=== PATIENT | male | born 1945 | race Caucasian/White ===

== ENCOUNTER 2016-05-29 08:32 | Inpatient (IN) ==
[2016-05-29] MEDS ORDERED: Ipratropium/Albuterol Neb 3 ML ONE (08:33)
[2016-05-29] MEDS ORDERED: methylPREDNISolone 125 MG/2 ML VIAL IVP ONE (08:34)
[2016-05-29] MEDS ORDERED: Ipratropium/Albuterol Neb 3 ML IH ONE (08:34)
--- NOTE | 2016-05-29 08:37 | Emergency Department Note ---
Disposition Clinical Impression: COPD exacerbation Disposition: Admitted As Inpatient Condition: Fair General Adult HPI - General Chief complaint: ED Shortness of Breath/Dyspnea Stated complaint: [place] Time Seen by Provider: 05/29/16 08:34 Nursing Notes Reviewed: Yes Vital Signs Reviewed: Yes - Related Data Home Medications Medication Instructions Recorded Confirmed Aspirin [Lo-Dose Aspirin EC] 162 mg PO DAILY 05/29/16 05/29/16 Beclomethasone Diprop 40mcg [Qvar 1 puff IH BID 05/29/16 05/29/16 40 mcg] Folic Acid 0.8 mg PO DAILY 05/29/16 05/29/16 Ibuprofen [Motrin] 800 mg PO TID 05/29/16 05/29/16 Ipratropium/Albuterol Neb [Duoneb] 3 ml IH Q6HR 05/29/16 05/29/16 Metoprolol [Lopressor] 25 mg PO DAILY 05/29/16 05/29/16 Multivitamin [Multi-Day Vitamins] 1 tab PO DAILY 05/29/16 05/29/16 Simvastatin [Zocor] 40 mg PO DAILY 05/29/16 05/29/16 Allergies Allergy/AdvReac Type Severity Reaction Status Date / Time No Known Allergies Allergy Verified 05/29/16 08:40 Course Vital Signs Temperature 98.5 F 05/29/16 08:33 Pulse Rate 118 05/29/16 08:33 Respiratory Rate 28 05/29/16 08:33 Blood Pressure 189/81 05/29/16 08:33 O2 Sat by Pulse Oximetry 99 05/29/16 08:33 Temperature 98.5 F 05/29/16 08:33 Pulse Rate 85 05/29/16 10:02 Respiratory Rate 24 05/29/16 10:33 Blood Pressure 142/50 05/29/16 10:33 O2 Sat by Pulse Oximetry 92 L 05/29/16 10:02 Oxygen Delivery Oxygen Delivery Nasal Cannula Medical Decision Making - MDM Narrative Medical decision making narrative: I examined this patient and my medical decision-making was reviewed with the MARINE SUPERINTENDENT/PA/Advanced Practice Nurse/Resident Physician. I agree with the documented findings, disposition and treatment plan as described except to the extent set forth below. I evaluated this patient on arrival with Dr. Laws, I agree with his evaluation and management plan, I supervised the care of the patient throughout the stay. Patient has a long history of COPD takes is coming by his she says that he has a minimal hospital about 4 years. Over the past week he has been coughing more dyspneic. No treatments this morning. He is on oxygen home she says he usually can make it from his chair to the kitchen and that is about it without getting short of breath. He has had no chest pain. He has been able to lay flat at night. He has been coughing up dry skin cough. No sputum. She states he has had no fevers he is not currently on steroids. He has decreased movement in his bases. Regular COPD workup on him he may need admission. Chest X-Ray 05/29/16 08:34 IMPRESSION: Prominence of the interstitial markings within lung bases. Correlation for interstitial edema is recommended. D/ / Erika Britton Cha, MD / Erika Britton Cha, MD Interpreting Provider: Erika Britton Cha, MD 0930 hrs.: Patient's labs are back, has a leukocytosis, but no pneumonia on chest x-ray. Start him on antibiotics since he has COPD. And bring him in the hospital as he still is wheezing and decreased aeration in the bases. This improved from the start. Spoke with the hospitalist they have agreed to admit the patient returned here evaluating him now. Patient family in agreement with the plan. Impressions acute exacerbation of COPD, leukocytosis. - Lab Data Result diagrams: 05/29/16 08:47 05/29/16 08:47 Lab Results 05/29/16 05/29/16 05/29/16 Range/Units 08:47 08:47 08:47 WBC 14.9 H (4.3-11.1) K/mcL RBC 5.24 (4.19-5.50) M/mcL Hgb 15.8 (12.9-16.9) g/dL Hct 51.6 H (37.5-50.1) % MCV 98.5 (83.0-100.0) fL MCH 30.2 (28.0-33.3) pg MCHC 30.6 L (31.6-35.5) g/dL RDW 12.1 (11.5-14.5) % Plt Count 205 (140-400) K/mcL MPV 8.8 L (9.4-12.4) fL Immature Gran % 0.8 (0-4) % Seg Neutrophils % 84.5 % Lymphocytes % 8.3 % Monocytes % 4.6 % Eosinophils % 1.3 % Basophils % 0.5 % Neutrophils # 12.6 H (1.6-8.9) K/mcL Lymphocytes # 1.2 (0.6-4.6) K/mcL Monocytes # 0.7 (0.0-1.3) K/mcL Eosinophils # 0.2 (0.0-0.6) K/mcL Basophils # 0.1 (0.0-0.2) K/mcL Sodium 142 (136-145) mEq/L Potassium 4.7 H (3.5-4.5) mEq/L Chloride 101 (98-109) mEq/L Carbon Dioxide 35 H (19-29) mEq/L BUN 14 (8-26) mg/dL Creatinine 0.83 (0.72-1.25) mg/dL Est GFR ( Amer) > 60 (> 60) Est GFR (Non-Af Amer) > 60 (> 60) BUN/Creatinine Ratio 17 (6-26) Glucose 120 H (70-99) mg/dL Calculated Osmolality 296 (280-300) Calcium 9.4 (8.6-10.8) mg/dL Troponin I 0.01 (0-0.03) ng/mL
--- NOTE | 2016-05-29 08:50 | Emergency Department Note ---
Disposition Clinical Impression: COPD exacerbation Disposition: Admitted As Inpatient Condition: Fair Referrals: Manjit To Jr, MD [Primary Care Provider] - Forms: ED Satisfaction Letter SOB HPI - General Chief Complaint: ED Shortness of Breath/Dyspnea Stated Complaint: [place] Time Seen by Provider: 05/29/16 08:34 Source: patient Limitations: no limitations Nursing Notes Reviewed: Yes Vital Signs Reviewed: Yes - History of Present Illness Patient here for evaluation of shortness of breath. History of COPD. Home O2 of 3 L. Patient has had symptoms for approximately 1 week. Progressively worse in nature. Patient taking out the oral nebulizers every 4 hours. Patient has difficulty in getting around the house and making it to the kitchen and bathroom at this point. Patient denies fever and productive cough. - Related Data Allergies Allergy/AdvReac Type Severity Reaction Status Date / Time No Known Allergies Allergy Verified 05/29/16 08:40 Constitutional: Reports: weakness. Denies: fever, chills Eyes: Denies: eye pain ENT ED: Denies: ear pain Cardiovascular: Reports: dyspnea on exertion. Denies: chest pain Respiratory: Reports: cough, dyspnea, wheezes Gastrointestinal: Denies: abdominal pain, nausea Genitourinary: Denies: urgency, dysuria Musculoskeletal: Denies: back pain Integumentary: Denies: rash Neurological: Denies: headache Psychiatric: Denies: anxiety, depression Endocrine: Reports: fatigue Hematological/Lymphatic: Denies: easy bleeding Physical Exam - General Limitations: no limitations - Head Head exam: atraumatic, normocephalic - Eye Eye exam: Present: normal appearance - ENT ENT exam: normal exam, normal oropharynx - Neck Neck exam: Present: normal inspection - Chest Chest inspection: Present: normal inspection, symmetric chest wall rise. Absent : tenderness - Respiratory Respiratory exam: Present: wheezes (Minimal air movement present bilaterally) - Cardiovascular Cardiovascular exam: Present: regular rate, normal rhythm - Abdominal Exam Abdominal exam: Present: soft, Non-Tender - Extremities Exam Extremities exam: Present: normal inspection - Back Exam Back exam: Present: normal inspection - Neurological Exam Neurological exam: Present: alert, oriented X3 Course - Reevaluation(s) Reevaluation #1: Patient's breathing improved with 3 DuoNeb's. Patient continues to have distant lung sounds with associated wheezing. Sputum production started yesterday with cough. Possible early pneumonia. Interstitial lung findings on x-ray. Will admit for further observation. - Consultations Consultation #1: Discussed with Dr. Fu. Pt accepted. Vital Signs Temperature 98.5 F 05/29/16 08:33 Pulse Rate 118 05/29/16 08:33 Respiratory Rate 28 05/29/16 08:33 Blood Pressure 189/81 05/29/16 08:33 O2 Sat by Pulse Oximetry 99 05/29/16 08:33 Temperature 98.5 F 05/29/16 08:33 Pulse Rate 98 05/29/16 09:05 Respiratory Rate 25 05/29/16 09:05 Blood Pressure 128/66 05/29/16 09:05 O2 Sat by Pulse Oximetry 98 05/29/16 09:05 Oxygen Delivery Oxygen Delivery Aerosol Mask Shortness of Breath/Dyspnea - Medical Records Medical records reviewed: Yes I reviewed the patient's medical records. - Lab Data Lab results reviewed: Yes I reviewed the patient's lab results. Result diagrams: 05/29/16 08:47 05/29/16 08:47 Lab Results 05/29/16 05/29/16 05/29/16 Range/Units 08:47 08:47 08:47 WBC 14.9 H (4.3-11.1) K/mcL RBC 5.24 (4.19-5.50) M/mcL Hgb 15.8 (12.9-16.9) g/dL Hct 51.6 H (37.5-50.1) % MCV 98.5 (83.0-100.0) fL MCH 30.2 (28.0-33.3) pg MCHC 30.6 L (31.6-35.5) g/dL RDW 12.1 (11.5-14.5) % Plt Count 205 (140-400) K/mcL MPV 8.8 L (9.4-12.4) fL Immature Gran % 0.8 (0-4) % Seg Neutrophils % 84.5 % Lymphocytes % 8.3 % Monocytes % 4.6 % Eosinophils % 1.3 % Basophils % 0.5 % Neutrophils # 12.6 H (1.6-8.9) K/mcL Lymphocytes # 1.2 (0.6-4.6) K/mcL Monocytes # 0.7 (0.0-1.3) K/mcL Eosinophils # 0.2 (0.0-0.6) K/mcL Basophils # 0.1 (0.0-0.2) K/mcL Sodium 142 (136-145) mEq/L Potassium 4.7 H (3.5-4.5) mEq/L Chloride 101 (98-109) mEq/L Carbon Dioxide 35 H (19-29) mEq/L BUN 14 (8-26) mg/dL Creatinine 0.83 (0.72-1.25) mg/dL Est GFR ( Amer) > 60 (> 60) Est GFR (Non-Af Amer) > 60 (> 60) BUN/Creatinine Ratio 17 (6-26) Glucose 120 H (70-99) mg/dL Calculated Osmolality 296 (280-300) Calcium 9.4 (8.6-10.8) mg/dL Troponin I 0.01 (0-0.03) ng/mL - Radiology Data Radiology results reviewed: Yes I reviewed the patient's radiology results. - EKG Data EKG attestation: Yes I reviewed and interpreted this EKG. EKG results narrative: EKG shows sinus tachycardia with an incomplete right bundle branch block. Ventricular rate of 117. PA interval 178. QRS 118. QTC 387. Patient has no significant ST elevations or depressions. Patient has significant Q waves in inferior leads consistent with previous EKG of 06/06/11. EKG with no significant changes from previous EKG.
[2016-05-29 08:59] LABS: Basophils # 0.1 K/mcL (0.0-0.2); Basophils % 0.5 %; Eosinophils # 0.2 K/mcL (0.0-0.6); Eosinophils % 1.3 %; Hematocrit 51.6 % (37.5-50.1); Hemoglobin 15.8 g/dL (12.9-16.9); Immature Granulocytes % 0.8 % (0-4); Lymphocytes # 1.2 K/mcL (0.6-4.6); Lymphocytes % 8.3 %; Mean Corpuscular HGB Conc 30.6 g/dL (31.6-35.5); Mean Corpuscular Hemoglobin 30.2 pg (28.0-33.3); Mean Corpuscular Volume 98.5 fL (83.0-100.0); Mean Platelet Volume 8.8 fL (9.4-12.4); Monocytes # 0.7 K/mcL (0.0-1.3); Monocytes % 4.6 %; Neutrophils # 12.6 K/mcL (1.6-8.9); Platelet Count 205 K/mcL (140-400); Red Blood Count 5.24 M/mcL (4.19-5.50); Red Cell Distribution Width 12.1 % (11.5-14.5); Segmented Neutrophils % 84.5 %
[2016-05-29 09:12] LABS: BUN/Creatinine Ratio 17 (6-26); Blood Urea Nitrogen 14 mg/dL (8-26); Calcium 9.4 mg/dL (8.6-10.8); Carbon Dioxide 35 mEq/L (19-29); Chloride 101 mEq/L (98-109); Glucose 120 mg/dL (70-99); Osmolality,Calculated 296 (280-300); Potassium 4.7 mEq/L (3.5-4.5); Sodium 142 mEq/L (136-145); eGFR For African Americans > 60 (> 60); eGFR For Non-African Americans > 60 (> 60)
[2016-05-29] MEDS ORDERED: Levofloxacin 750 MG/150 ML 750 MG/150 ML BAG IVPB ONE (09:33)
--- NOTE | 2016-05-29 10:00 | Internal Med History&Physical ---
Date of Encounter: 05/29/16 Time of Encounter: 09:54 Assessment and Plan (1) COPD exacerbation Current visit: Yes Status: Acute Mr. Holland has underlying COPD and has been admitted due to an acute exacerbation of his chronic obstructive pulmonary disease. However, there was no evidence of pneumonia. We will continue with oxygen therapy, nebulizer therapy along with systemic steroids and IV antibiotics. BiPAP at night. DVT prophylaxis as per hospital protocol. Will give by mouth aspirin in light of history of coronary artery disease. We will monitor troponins as well, he does have a history of intermittent chest pain however it is associated with cough. Telemetry monitoring. I discussed the plan of care in detail with the patient and his family members, they expressed understanding. The patient is at high risk of developing respiratory failure and still needs high flow oxygen therapy. (2) CAD (coronary artery disease) Current visit: Yes Status: Acute Qualifiers: Coronary Disease-Associated Artery/Lesion type: unspecified vessel or lesion type [place] vs. transplanted heart: [place] heart Associated angina: angina presence unspecified Qualified Code(s): I25.10 - Atherosclerotic heart disease of [place] coronary artery without angina pectoris Internal Medicine - H&P: HPI Chief complaint: Shortness of breath Admitted From: Emergency Dept Plans for Post Hospital Care: Home History of present illness: Mr. Holland is a 71 year old male with PMH of COPD, CAD ([place] in 1998), chronic active smoker. Mr. 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 Above-mentioned symptoms started around a week ago and had been progressively getting worse. He is a user of long-term oxygen therapy at home, additionally he also uses a CPAP machine. Initial workup in the emergency department revealed leukocytosis, his chest x-ray did not reveal any signs of an acute infiltrate. He was initially tachycardic. I evaluated him while he still was in the emergency department holding area, he did receive nebulizer therapy and a dose of IV steroids along with IV Levaquin in the emergency department and he improved after this therapy. However, he still needs the use of a high flow oxygen delivery via nasal cannula. The patient was admitted for further management and workup. Past Med Surg Social Fam HX - Past Medical History Medical history: COPD, hyperlipidemia, hypertension, myocardial infarction Psychiatric history: no psych history - Social History Smoking Status: Current every day smoker Smokeless Tobacco Status: No Alcohol use: none Drug use: none Internal Medicine - H&P: Meds Allergies No Known Allergies Allergy (Verified 05/29/16 08:40) All Systems PM: A 10-system review of systems was performed and is negative for pertinent findings except as documented above in the HPI. - Constitutional Constitutional: as per HPI, no chills, no fever(s), no night sweats - EENT Eyes: as per HPI, no change in vision, no discharge, no pain, no photophobia Ears: as per HPI, no ear discharge, no ear pain, no tinnitus Nose, mouth and throat: as per HPI, no dysphagia, no nasal discharge, no neck pain, no sore throat - Breasts Breasts: as per HPI - Cardiovascular Cardiovascular ROS IM: as per HPI, dyspnea, dyspnea on exertion, no chest pain, no diaphoresis, no lightheadedness, no palpitations, no syncope - Respiratory Respiratory: as per HPI, cough, dyspnea, dyspnea on exertion, wheezing, no excessive phlegm production - Gastrointestinal Gastrointestinal: as per HPI, no abdominal pain, no diarrhea, no hematemesis, no hematochezia, no melena, no nausea, no vomiting - Genitourinary Genitourinary ROS male: as per HPI - Musculoskeletal Musculoskeletal ROS IM: as per HPI, no numbness, no tingling - Integumentary Integumentary IM: as per HPI, no rash, no unusual bruising - Neurological Neurological ROS: as per HPI, no confusion, no convulsions, no focal weakness, no numbness, no tingling, no tremor(s) - Psychiatric Psychiatric: as per HPI - Endocrine Endocrine IM: as per HPI - Hematologic/Lymphatic Hematologic/Lymphatic: as per HPI, no easy bruising - Allergic/Immunologic Allergic/Immunologic: as per HPI - Constitutional Vitals: Temp Pulse Resp BP Pulse Ox 98.5 F 98 25 128/66 98 05/29/16 08:33 05/29/16 09:05 05/29/16 09:05 05/29/16 09:05 05/29/16 09:05 General appearance: Present: cooperative, A&O X 3 - Head Head exam: Present: atraumatic, normocephalic - Eye Eye exam: Present: PERRL, conjuntiva pink, sclera anicteric Pupils: Present: PERRL - Neck Neck exam general surgery: Present: supple, trachea midline. Absent: lymphadenopathy - Respiratory Respiratory exam: Present: decreased breath sounds. Absent: accessory muscle use, rales, rhonchi, wheezes - Cardiovascular Cardiovascular exam: Present: RRR, +S1, +S2. Absent: diastolic murmur, gallop, rubs, systolic murmur - GI/Abdominal GI/Abdominal exam: Present: normal bowel sounds, soft, no peritoneal signs. Absent: distended, tenderness - Extremities Exam Extremities exam: Present: warm, radial pulses palpable and symetrical. Absent : calf tenderness, cyanotic, pedal edema - Neurological Exam Neurological exam: Present: CN II-XII intact, oriented X3, no focal deficits. Absent: pronater drift, facial droop, speech deficit - Skin Skin exam: Present: dry, intact Internal Med - H&P Results - Labs CBC & Chem 7: 05/29/16 08:47 05/29/16 08:47 Labs: Short CBC 05/29/16 Range/Units 08:47 WBC 14.9 H (4.3-11.1) K/mcL Hgb 15.8 (12.9-16.9) g/dL Hct 51.6 H (37.5-50.1) % Plt Count 205 (140-400) K/mcL Neutrophils # 12.6 H (1.6-8.9) K/mcL BMP 05/29/16 08:47 Sodium 142 Potassium 4.7 H Chloride 101 Carbon Dioxide 35 H BUN 14 Creatinine 0.83 Glucose 120 H Calcium 9.4 Cardiac Enzymes 05/29/16 Range/Units 08:47 Troponin I 0.01 (0-0.03) ng/mL - Impressions ITS Impressions Chest X-Ray 05/29/16 08:34 IMPRESSION: Prominence of the interstitial markings within lung bases. Correlation for interstitial edema is recommended. D/ / Erika Britton Cha, MD / Erika Britton Cha, MD Interpreting Provider: Erika Britton Cha, MD
[2016-05-29] MEDS ORDERED: Acetaminophen 325 MG TABLET PO PRN (10:04)
[2016-05-29] MEDS ORDERED: Albuterol 2.5 MG/3 ML NEBULIZER IH PRN (10:04)
[2016-05-29] MEDS ORDERED: Ondansetron 4 MG/2 ML VIAL IVP PRN (10:04)
[2016-05-29] MEDS ORDERED: Naloxone 0.4 MG/ML INJ IVP PRN (10:04)
[2016-05-29] MEDS ORDERED: predniSONE 20 MG TABLET PO SCH (10:15)
[2016-05-29] MEDS: Ipratropium/Albuterol Neb 3 ML IH SCH ×3 (11:24→22:11)
[2016-05-29] MEDS ORDERED: FLU VACC QS2016-17 36MOS UP/PF 0.5 ML SYRINGE IM ONE (12:00)
[2016-05-29] MEDS: Aspirin 81 MG TAB.CHEW PO SCH (13:18)
[2016-05-29] MEDS: 0.9 % Sodium Chloride 1,000 ML IVC SCH (13:19)
[2016-05-29] MEDS: Benzonatate 100 MG CAPSULE PO PRN (18:21)
[2016-05-29] MEDS: MethylPREDNISolone 40 MG/ML VIAL IVP SCH ×2 (18:21→18:26)
[2016-05-29] MEDS: Famotidine 20 MG TABLET PO SCH (21:49)
[2016-05-30] MEDS: MethylPREDNISolone 40 MG/ML VIAL IVP SCH ×4 (00:23→17:31)
[2016-05-30] MEDS: 0.9 % Sodium Chloride 1,000 ML IVC SCH (02:45)
[2016-05-30] MEDS: *HR* HYDROcodone/Acet 5/325 mg TABLET PO PRN ×2 (02:50→09:49)
[2016-05-30] MEDS: Ipratropium/Albuterol Neb 3 ML IH SCH ×4 (04:26→22:09)
[2016-05-30 05:25] LABS: Basophils % 0.1 %; Hematocrit 45.1 % (37.5-50.1); Hemoglobin 13.9 g/dL (12.9-16.9); Immature Granulocytes % 1.3 % (0-4); Lymphocytes # 0.9 K/mcL (0.6-4.6); Lymphocytes % 5.7 %; Mean Corpuscular HGB Conc 30.8 g/dL (31.6-35.5); Mean Corpuscular Volume 97.4 fL (83.0-100.0); Mean Platelet Volume 8.9 fL (9.4-12.4); Monocytes # 0.4 K/mcL (0.0-1.3); Monocytes % 2.6 %; Platelet Count 210 K/mcL (140-400); Red Blood Count 4.63 M/mcL (4.19-5.50); Red Cell Distribution Width 12.4 % (11.5-14.5); Segmented Neutrophils % 90.3 %
[2016-05-30 05:27] LABS: INR 1.1; Prothrombin Time 11.6 Seconds (9.4-12.1)
[2016-05-30 05:40] LABS: Hemoglobin A1C 5.7 %
[2016-05-30 05:45] LABS: Alanine Aminotransferase 11 Units/L (0-55); Albumin 3.1 g/dL (3.5-5.0); Albumin/Globulin Ratio 0.8 (1.1-2.2); Alkaline Phosphatase 80 Units/L (38-126); Aspartate Amino Transferase 14 Units/L (5-34); BUN/Creatinine Ratio 25 (6-26); Bilirubin,Total 0.2 mg/dL (0.2-1.2); Calcium 8.5 mg/dL (8.6-10.8); Carbon Dioxide 31 mEq/L (19-29); Chloride 101 mEq/L (98-109); Chol/HDL Ratio 3.2 (0-4.9); Cholesterol 157 mg/dL (< 200); Globulin 3.8 g/dL (2.4-3.5); Glucose 154 mg/dL (70-99); HDL Cholesterol 49 mg/dL (40-59); LDL Cholesterol,Calculated 94 mg/dL (0-99); Osmolality,Calculated 294 (280-300); Potassium 4.5 mEq/L (3.5-4.5); Sodium 138 mEq/L (136-145); Total Protein 6.9 g/dL (6.0-8.3); Triglycerides 68 mg/dL (< 150); eGFR For African Americans > 60 (> 60); eGFR For Non-African Americans > 60 (> 60)
[2016-05-30 05:47] LABS: Blood Urea Nitrogen 27 mg/dL (8-26)
[2016-05-30 06:05] LABS: Thyroid Stimulating Hormone 0.325 mcIU/mL (0.350-4.840)
[2016-05-30] MEDS: Aspirin 81 MG TAB.CHEW PO SCH (09:48)
[2016-05-30] MEDS: Levofloxacin 500 MG/100 ML 500 MG/100 ML BAG IVPB SCH (09:49)
[2016-05-30] MEDS: Famotidine 20 MG TABLET PO SCH ×2 (09:49→20:39)
--- NOTE | 2016-05-30 10:37 | Internal Med Progress Note ---
<Santiago Manuel - Last Filed: 05/30/16 10:34> Date of Encounter: 05/30/16 Time of Encounter: 10:37 - Assessment and plan (1) COPD exacerbation Current Visit: Yes Status: Acute Assessment and plan: patient has underlying severe COPD, baseline O2 is 2L titrate to keep O2 sat >88% currently on 4L cont duonebs cont qvar cont levaquin and transition to PO prednisone 40mg and will start taper. likely dc tomorrow, will cont to monitor clinical status was on BiPAP at night, can transition to CPAP home settings (2) CAD (coronary artery disease) Current Visit: Yes Status: Acute Assessment and plan: continue aspirin, zocor, metoprolol Qualifiers: Coronary Disease-Associated Artery/Lesion type: unspecified vessel or lesion type [place] vs. transplanted heart: [place] heart Associated angina: angina presence unspecified Qualified Code(s): I25.10 - Atherosclerotic heart disease of [place] coronary artery without angina pectoris - Time Spent With Patient 25 - 35 minutes - Subjective Interval history: pt feeling better than yesterday, still has baseline shortnes of breath w some sputum but this is improved compared to yesterday. denies f/n/v/d. he does feel warm however. - Constitutional Vitals: Temp Pulse Resp BP Pulse Ox 97.9 F 109 16 155/76 90 L 05/30/16 06:40 05/30/16 06:40 05/30/16 06:40 05/30/16 06:40 05/30/16 06:40 General appearance: Present: A&O X 3, answers questions appropriately - Head Head exam: Present: atraumatic, normocephalic - Eye Eye exam: Present: PERRL, conjuntiva pink, sclera anicteric Pupils: Present: PERRL - Neck Neck exam general surgery: Present: supple, trachea midline. Absent: lymphadenopathy - Respiratory Respiratory exam: Present: decreased breath sounds (bilaterally), prolonged expiratory phase - Cardiovascular Cardiovascular exam: Present: RRR, +S1, +S2 - GI/Abdominal GI/Abdominal exam: Present: normal bowel sounds, soft, no peritoneal signs. Absent: tenderness - Extremities Exam Extremities exam: Present: warm, radial pulses palpable and symetrical. Absent : calf tenderness - Neurological Exam Neurological exam: Present: CN II-XII intact, oriented X3, no focal deficits - Skin Skin exam: Present: dry, intact Internal Medicine: Result - Labs CBC & Chem 7: 05/30/16 04:51 05/30/16 04:51 Labs: Short CBC 05/30/16 Range/Units 04:51 WBC 15.5 H (4.3-11.1) K/mcL Hgb 13.9 D (12.9-16.9) g/dL Hct 45.1 (37.5-50.1) % Plt Count 210 (140-400) K/mcL Neutrophils # 14.0 H (1.6-8.9) K/mcL BMP 05/30/16 04:51 Sodium 138 Potassium 4.5 Chloride 101 Carbon Dioxide 31 H BUN 27 H D Creatinine 1.10 Glucose 154 H Calcium 8.5 L Cardiac Enzymes 05/29/16 05/29/16 Range/Units 14:03 20:32 Troponin I 0.01 0.01 (0-0.03) ng/mL Liver Function 05/30/16 Range/Units 04:51 Total Bilirubin 0.2 (0.2-1.2) mg/dL AST 14 (5-34) Units/L ALT 11 (0-55) Units/L Alkaline Phosphatase 80 (38-126) Units/L Albumin 3.1 L (3.5-5.0) g/dL - ABG Interpretation ABG results: PT/INR, D-dimer PT 11.6 Seconds (9.4-12.1) 05/30/16 04:51 Consult Discharge Plan - Plan Referrals: Manjit To Jr, MD [Primary Care Provider] - <Santosh Soto - Last Filed: 05/30/16 18:01> Date of Encounter: 05/30/16 - Assessment and plan (1) Acute and chronic respiratory failure with hypoxia Current Visit: Yes Status: Acute Assessment and plan: Supplemental oxygen and treatment of COPD. (2) COPD exacerbation Current Visit: Yes Status: Acute (3) CAD (coronary artery disease) Current Visit: Yes Status: Acute Qualifiers: Coronary Disease-Associated Artery/Lesion type: unspecified vessel or lesion type [place] vs. transplanted heart: [place] heart Associated angina: angina presence unspecified Qualified Code(s): I25.10 - Atherosclerotic heart disease of [place] coronary artery without angina pectoris (4) HTN (hypertension) Current Visit: Yes Status: Acute Assessment and plan: Continue monitor and home meds. Qualifiers: Hypertension type: essential hypertension Qualified Code(s): I10 - Essential (primary) hypertension (5) Insomnia Current Visit: Yes Status: Acute Assessment and plan: PRN med. Qualifiers: Insomnia type: due to medical condition Qualified Code(s): G47.01 - Insomnia due to medical condition (6) Tobacco abuse Current Visit: Yes Status: Acute - Constitutional Vitals: Temp Pulse Resp BP Pulse Ox 98.0 F 92 20 135/74 98 05/30/16 16:00 05/30/16 16:00 05/30/16 16:24 05/30/16 16:00 05/30/16 16:24 Internal Medicine: Result - Labs CBC & Chem 7: 05/30/16 04:51 05/30/16 04:51 - ABG Interpretation ABG results: PT/INR, D-dimer PT 11.6 Seconds (9.4-12.1) 05/30/16 04:51 - Attending Attestation I examined this patient and my medical decision-making was reviewed with the Resident Physician. I agree with the documented findings, disposition and treatment plan as described except to the extent set forth below. Mr. Holland is currently admitted for acute exac chronic COPD with hypoxic respiratory failure. He is moderate to high risk due to potential of worsening respiratory failure. Mr. Holland did not sleep well last night. His breathing is somewhat better than yesterday. No CP. No GI symptoms. Feels tired but not sleepy. Appetite is poor. Exam Alert. Mild resp distress at rest Mucus membranes dry Heart distant Lungs diminished but with rhonchi Abd soft I/P 1. Acute on chronic hypoxic resp failure 2. Acute exac COPD 3. CAD 4. HLD 5. HTN 6. Smoker Pt has poor prognosis overall. Needs palliative care.
[2016-05-30] MEDS: Melatonin 3 MG TABLET PO PRN (20:42)
[2016-05-31] MEDS: MethylPREDNISolone 40 MG/ML VIAL IVP SCH ×3 (00:58→12:29)
[2016-05-31] MEDS: Ipratropium/Albuterol Neb 3 ML IH SCH ×4 (03:38→22:35)
[2016-05-31 05:55] LABS: Basophils % 0.2 %; Hematocrit 46.1 % (37.5-50.1); Hemoglobin 14.3 g/dL (12.9-16.9); Immature Granulocytes % 1.4 % (0-4); Lymphocytes # 0.7 K/mcL (0.6-4.6); Lymphocytes % 3.3 %; Mean Corpuscular Hemoglobin 30.3 pg (28.0-33.3); Mean Corpuscular Volume 97.7 fL (83.0-100.0); Mean Platelet Volume 9.2 fL (9.4-12.4); Monocytes # 0.7 K/mcL (0.0-1.3); Monocytes % 3.3 %; Platelet Count 216 K/mcL (140-400); Red Blood Count 4.72 M/mcL (4.19-5.50); Red Cell Distribution Width 12.7 % (11.5-14.5); Segmented Neutrophils % 91.8 %
--- NOTE | 2016-05-31 08:51 | Palliative - Consult Note ---
Date of Encounter: 05/31/16 Time of Encounter: 08:15 - Assessment and Plan (1) Pain Current Visit: Yes Status: Acute Assessment and plan: Probably neurogenic due to the fact that some burning sensation in his feet. With normal kidney function and no allergies would recommend gabapentin. Will start this today. (2) Goals of care, counseling/discussion Current Visit: Yes Status: Acute Assessment and plan: Currently full code, will meet with later today and discussed for goals of care. I believe based on gush with the patient that he does meet hospice criteria for COPD. Having said that he is right at the edge and it would not be the least bit unreasonable to hold off on hospice for a while. The patient does have difficulty getting out and getting around because of his shortness of breath and I feel that home health care might be of use to him have discussed this with the worker and he will be checking up on this as well. All this is pending meeting with patient and family. (3) Dyspnea Current Visit: Yes Status: Acute Assessment and plan: Continue current treatment. Qualifiers: Dyspnea type: shortness of breath Qualified Code(s): R06.02 - Shortness of breath (4) Constipation by delayed colonic transit Current Visit: Yes Status: Acute Assessment and plan: Per the patient no BM since admission. During Colace is not being used. We will schedule a bowel regimen for the patient. (5) Acute and chronic respiratory failure with hypoxia Current Visit: Yes Status: Acute Assessment and plan: Continue current treatment per hospitalist team. Palliative-CN HPI - Data of Consult Patient: new to practice Requesting Physician: Santosh Soto DO Primary Care Provider: Manjit To Jr, MD - Consult Narrative Palliative Care/Comfort Measures: Palliative care Reason for consult: goals of care code status History of present illness: Mr. Holland is a 71 year old male Comes in through the emergency department with increasing shortness of breath for the last week. Patient's also had an increasing cough but no fever or chills. Office been productive of bleeding. Patient notes that he is becoming more more short of breath even at rest. Prior to this last week patient was fairly short of breath all the time. Rest. He can carry on a conversation in full sentences, however forward or a cough will take him to take his breath away. He is able to take no more than walking a few feet before he significantly short of breath. He has not had a lot of visits to the emergency department or the hospital, however this breath is limiting him severely at this time. The patient has no pain except a burning sensation in his feet that has been present for a while" does not radiate except up to the ankle. As not seem to have anything in particular provokes or makes it better. At times the tingling sensation at other times with some burning and gets approximately a 4 5 /10. In the emergency department patient was diagnosed with acute exacerbation of COPD placed on antibiotics as well as steroids. States that since he has been in the hospital has not been up out of bed and does not feel he is ready to go home at this time. He is amenable to pulmonary rehabilitation but that is recommended by the treatment team. Does feel that he needs extra help at home as his is not able to take care of him due to her own health concerns multiple replacements. Medical team states that he is getting better, but they do not have plans to discharge today or tomorrow. Will plan to meet with family later today. CC: Santosh Soto, DO sob Past Med Surg Social Fam HX - Past Medical History Medical history: COPD, hyperlipidemia, hypertension, myocardial infarction Psychiatric history: no psych history - Social History Smoking Status: Former smoker Smokeless Tobacco Status: No Alcohol use: none Drug use: none Medications and Allergies Aspirin [Lo-Dose Aspirin EC] 162 mg PO DAILY 05/29/16 [History] Beclomethasone Diprop 40mcg [Qvar 40 mcg] 1 puff IH BID 05/29/16 [History] Folic Acid 0.8 mg PO DAILY 05/29/16 [History] Ibuprofen [Motrin] 800 mg PO TID 05/29/16 [History] Ipratropium/Albuterol Neb [Duoneb] 3 ml IH Q6HR 05/29/16 [History] Metoprolol [Lopressor] 25 mg PO DAILY 05/29/16 [History] Multivitamin [Multi-Day Vitamins] 1 tab PO DAILY 05/29/16 [History] Simvastatin [Zocor] 40 mg PO DAILY 05/29/16 [History] Allergies No Known Allergies Allergy (Verified 05/29/16 08:40) - Constitutional Constitutional ROS PAL: fatigue, no decreased appetite, no anorexia - EENT Eyes: no discharge, no loss of vision, no pain Ears: no ear discharge, no ear pain Ears, nose, mouth, throat: dry mouth, no facial pain, no hoarseness, no mouth pain, no neck mass, no neck pain - Cardiovascular Cardiovascular ROS: dyspnea on exertion, no chest pain, no chest pain at rest - Respiratory Respiratory: cough, dyspnea on exertion, excessive phlegm production, no hemoptysis - Gastrointestinal Gastrointestinal: constipation, no diarrhea, no nausea, no vomiting - Genitourinary Genitourinary ROS male: no urinary frequency, no urinary hesitancy, no urinary incontinence (The patient however does feel much better having a Benítez and in that he can read easier.) - Musculoskeletal Musculoskeletal ROS IM: no arthralgias, no back pain - Integumentary ROS Integumentary: no skin pain, no skin ulcer - Neurological Neurological ROS: burning sensations (Both feet and lower legs), no confusion, no convulsions, no disequilibrium, no numbness - Psychiatric Psychiatric general PM: no anhedonia, no confusion, no homicidal ideation, no suicidal ideation - Endocrine Endocrine IM: as per HPI, other (No diabetes or thyroid problems.) Palliative Care-Exam - Constitutional Vitals: Temp Pulse Resp BP Pulse Ox 98.2 F 94 14 142/73 92 L 05/31/16 08:03 05/31/16 08:03 05/31/16 08:03 05/31/16 08:03 05/31/16 08:03 Internal Medicine - CN: Reslt - Labs CBC & Chem 7: 05/31/16 04:57 05/30/16 04:51 Labs: Short CBC 05/31/16 Range/Units 04:57 WBC 20.7 H (4.3-11.1) K/mcL Hgb 14.3 (12.9-16.9) g/dL Hct 46.1 (37.5-50.1) % Plt Count 216 (140-400) K/mcL Neutrophils # 19.0 H (1.6-8.9) K/mcL - ABG Interpretation ABG results: PT/INR, D-dimer PT 11.6 Seconds (9.4-12.1) 05/30/16 04:51 Consult Discharge Plan - Plan Referrals: Manjit To Jr, MD [Primary Care Provider] - 06/10/16 10:00 am Palliative Quality Palliative Quality: Screen for Code Status: Yes, Screen for Goals of Care: Yes, Screen for Pain: Yes, If Pain Regimen Started, Initiate Bowel Regimen: Yes, Screen for Nausea/Vomitting: Yes
[2016-05-31] MEDS: Famotidine 20 MG TABLET PO SCH ×2 (09:05→20:39)
[2016-05-31] MEDS: Levofloxacin 500 MG/100 ML 500 MG/100 ML BAG IVPB SCH (09:05)
[2016-05-31] MEDS: Aspirin 81 MG TAB.CHEW PO SCH (09:05)
--- NOTE | 2016-05-31 09:22 | Internal Med Progress Note ---
<Santiago Manuel - Last Filed: 05/31/16 12:17> Date of Encounter: 05/31/16 Time of Encounter: 07:40 - Assessment and plan (1) COPD exacerbation Current Visit: Yes Status: Acute Assessment and plan: patient has underlying severe COPD, baseline O2 is 2L titrate to keep O2 sat >88% currently on 3L cont duonebs will change qvar to symbicort upon discharge cont levaquin and cont PO prednisone taper 30 today likely dc tomorrow, will cont to monitor clinical status cont BiPAP at night appreciate palliative, will talk with patient and his when they are both present regarding detention patient's baseline is to be able to walk 4 steps and will then get winded. (2) CAD (coronary artery disease) Current Visit: Yes Status: Acute Assessment and plan: continue aspirin, zocor, metoprolol Qualifiers: Coronary Disease-Associated Artery/Lesion type: unspecified vessel or lesion type [place] vs. transplanted heart: [place] heart Associated angina: angina presence unspecified Qualified Code(s): I25.10 - Atherosclerotic heart disease of [place] coronary artery without angina pectoris (3) DVT prophylaxis Current Visit: Yes Status: Acute - Time Spent With Patient 25 - 35 minutes - Subjective Interval history: cont to feel somewhat better regarding breathing/shortness of breath. he used cpap last night. still having some sputum. no f/n/v/d. able to eat. / pt feeling better than yesterday, still has baseline shortnes of breath w some sputum but this is improved compared to yesterday. denies f/n/v/d. he does feel warm however. - Constitutional Vitals: Temp Pulse Resp BP Pulse Ox 98.2 F 94 14 142/73 92 L 05/31/16 08:03 05/31/16 08:03 05/31/16 08:03 05/31/16 08:03 05/31/16 08:03 Exam: General appearance: Present: A&O X 3, answers questions appropriately - Head Head exam: Present: atraumatic, normocephalic - Eye Eye exam: Present: PERRL, conjuntiva pink, sclera anicteric Pupils: Present: PERRL - Neck Neck exam general surgery: Present: supple, trachea midline. Absent: lymphadenopathy - Respiratory Respiratory exam: Present: decreased breath sounds (bilaterally), prolonged expiratory phase - Cardiovascular Cardiovascular exam: Present: RRR, +S1, +S2 - GI/Abdominal GI/Abdominal exam: Present: normal bowel sounds, soft, no peritoneal signs. Absent: tenderness - Extremities Exam Extremities exam: Present: warm, radial pulses palpable and symetrical. - Neurological Exam Neurological exam: Present: CN II-XII intact, oriented X3 - Skin Skin exam: Present: dry, intact Internal Medicine: Result - Labs CBC & Chem 7: 05/31/16 04:57 05/31/16 07:06 Labs: Short CBC 05/31/16 Range/Units 04:57 WBC 20.7 H (4.3-11.1) K/mcL Hgb 14.3 (12.9-16.9) g/dL Hct 46.1 (37.5-50.1) % Plt Count 216 (140-400) K/mcL Neutrophils # 19.0 H (1.6-8.9) K/mcL - ABG Interpretation ABG results: PT/INR, D-dimer PT 11.6 Seconds (9.4-12.1) 05/30/16 04:51 Consult Discharge Plan - Plan Referrals: Manjit To Jr, MD [Primary Care Provider] - 06/10/16 10:00 am <Santosh Soto - Last Filed: 05/31/16 18:52> Date of Encounter: 05/31/16 - Assessment and plan (1) Acute and chronic respiratory failure with hypoxia Current Visit: Yes Status: Acute (2) COPD exacerbation Current Visit: Yes Status: Acute (3) CAD (coronary artery disease) Current Visit: Yes Status: Acute Qualifiers: Coronary Disease-Associated Artery/Lesion type: unspecified vessel or lesion type [place] vs. transplanted heart: [place] heart Associated angina: angina presence unspecified Qualified Code(s): I25.10 - Atherosclerotic heart disease of [place] coronary artery without angina pectoris (4) HTN (hypertension) Current Visit: Yes Status: Acute Qualifiers: Hypertension type: essential hypertension Qualified Code(s): I10 - Essential (primary) hypertension (5) Insomnia Current Visit: Yes Status: Acute Qualifiers: Insomnia type: due to medical condition Qualified Code(s): G47.01 - Insomnia due to medical condition (6) Tobacco abuse Current Visit: Yes Status: Acute - Constitutional Vitals: Temp Pulse Resp BP Pulse Ox 98.3 F 91 18 144/75 95 05/31/16 15:15 05/31/16 15:15 05/31/16 15:35 05/31/16 15:15 05/31/16 15:35 Internal Medicine: Result - Labs CBC & Chem 7: 05/31/16 04:57 05/31/16 07:06 Labs: Short CBC 05/31/16 Range/Units 04:57 WBC 20.7 H (4.3-11.1) K/mcL Hgb 14.3 (12.9-16.9) g/dL Hct 46.1 (37.5-50.1) % Plt Count 216 (140-400) K/mcL Neutrophils # 19.0 H (1.6-8.9) K/mcL BMP 05/31/16 07:06 Sodium 142 Potassium 4.6 H Chloride 105 Carbon Dioxide 27 BUN 26 Creatinine 0.94 Glucose 157 H Calcium 8.6 - ABG Interpretation ABG results: PT/INR, D-dimer PT 11.6 Seconds (9.4-12.1) 05/30/16 04:51 - Attending Attestation I examined this patient and my medical decision-making was reviewed with the Resident Physician. I agree with the documented findings, disposition and treatment plan as described except to the extent set forth below. Mr. Holland is currently admitted for acute on chronic hypoxic resp failure and exac COPD. He remains moderate to high risk due to potential for worsening respiratory status. Mr. Holland is resting comfortably. Had good bowel movement. No CP. Seen by palliative and appreciate input. Now DNRCCA/DNI. Exam Alert. Comfortable Heart reg Lungs with end exp wheeze I/P 1. Hypoxic resp failure 2. COPD Further diagnoses and plan as above.
[2016-05-31 09:55] LABS: BUN/Creatinine Ratio 28 (6-26); Calcium 8.6 mg/dL (8.6-10.8); Carbon Dioxide 27 mEq/L (19-29); Chloride 105 mEq/L (98-109); Glucose 157 mg/dL (70-99); Osmolality,Calculated 302 (280-300); Potassium 4.6 mEq/L (3.5-4.5); Sodium 142 mEq/L (136-145); eGFR For African Americans > 60 (> 60); eGFR For Non-African Americans > 60 (> 60)
[2016-05-31 10:02] LABS: Blood Urea Nitrogen 26 mg/dL (8-26)
--- NOTE | 2016-05-31 10:23 | Electrocardiograph Report ---
[facility] Test Date: 2016-05-29 Pat Name: Boyd Holland Department: 103 Room: 2NE23 Gender: M Tree Topper: WILMA : 1945 Requested By: Tye Laws Order Number: [id number] Reading MD: Marcus Hudson MD Measurements Intervals [place] Rate: 117 P: 87 WI: 178 QRS: -73 QRSD: 118 T: 63 QT: 317 QTc: 387 Interpretive Statements SINUS TACHYCARDIA LOW QRS VOLTAGE IN EXTREMITY LEADS INCOMPLETE RIGHT BUNDLE BRANCH BLOCK LEFT ANTERIOR FASCICULAR BLOCK INFERIOR MYOCARDIAL INFARCTION, OF INDETERMINATE AGE Electronically Signed On 05-31-16 10:23:10 EST by Marcus Hudson MD
[2016-05-31] MEDS: predniSONE 20 MG TABLET PO SCH (17:25)
[2016-05-31] MEDS: Benzonatate 100 MG CAPSULE PO PRN (17:28)
[2016-05-31] MEDS: Gabapentin 300 MG CAPSULE PO SCH (20:39)
[2016-05-31] MEDS: Sennosides/Docusate Sodium TABLET PO SCH (20:39)
[2016-05-31] MEDS: Melatonin 3 MG TABLET PO PRN (20:42)
[2016-06-01] MEDS: Ipratropium/Albuterol Neb 3 ML IH SCH ×4 (03:18→22:05)
[2016-06-01 05:13] LABS: ABG Base Excess 10.9 mEq/L (-2.0 to 3.0); ABG HCO3 39.3 mEQ/L (21-27); ABG Oxygen Saturation 89 % (95-98); ABG PCO2 68 mmHg (35-45); ABG PH 7.37 pH Units (7.32-7.45); ABG PO2 58 mmHg (85-104); ABG TCO2 41.4 mEq/L (20-26); Blood Gas FiO2 28 %
[2016-06-01 06:36] LABS: Basophils # 0.1 K/mcL (0.0-0.2); Basophils % 0.3 %; Hematocrit 50.5 % (37.5-50.1); Hemoglobin 15.6 g/dL (12.9-16.9); Immature Granulocytes % 1.4 % (0-4); Lymphocytes % 5.4 %; Mean Corpuscular HGB Conc 30.9 g/dL (31.6-35.5); Mean Corpuscular Hemoglobin 30.2 pg (28.0-33.3); Mean Corpuscular Volume 97.9 fL (83.0-100.0); Mean Platelet Volume 8.9 fL (9.4-12.4); Monocytes # 1.2 K/mcL (0.0-1.3); Monocytes % 6.2 %; Neutrophils # 16.4 K/mcL (1.6-8.9); Platelet Count 212 K/mcL (140-400); Red Blood Count 5.16 M/mcL (4.19-5.50); Red Cell Distribution Width 12.5 % (11.5-14.5); Segmented Neutrophils % 86.7 %
[2016-06-01 06:59] LABS: BUN/Creatinine Ratio 29 (6-26); Blood Urea Nitrogen 24 mg/dL (8-26); Calcium 8.9 mg/dL (8.6-10.8); Carbon Dioxide 32 mEq/L (19-29); Chloride 103 mEq/L (98-109); Glucose 113 mg/dL (70-99); Osmolality,Calculated 297 (280-300); Sodium 141 mEq/L (136-145); eGFR For African Americans > 60 (> 60); eGFR For Non-African Americans > 60 (> 60)
[2016-06-01 07:17] LABS: Potassium 4.8 mEq/L (3.5-4.5)
--- NOTE | 2016-06-01 09:39 | Internal Med Progress Note ---
<Timur Kiran - Last Filed: 06/01/16 18:21> Date of Encounter: 06/01/16 Time of Encounter: 08:30 - Assessment and plan (1) COPD exacerbation Current Visit: Yes Status: Acute Assessment and plan: - Severe COPD with 2L oxygen at home. - Continue supplemental oxygen with goal O2 sat >88%. - Continue Duoneb. - Continue Qvar but will change to Symbicort upon discharge - Continue Levaquin and PO prednisone taper. - Cont BiPAP at night - Appreciate palliative care assistance on patient. - Clinically stable, waiting for placement. (2) CAD (coronary artery disease) Current Visit: Yes Status: Chronic Assessment and plan: - Ccontinue aspirin, zocor, metoprolol Qualifiers: Coronary Disease-Associated Artery/Lesion type: [place] artery [place] vs. transplanted heart: [place] heart Associated angina: angina presence unspecified Qualified Code(s): I25.10 - Atherosclerotic heart disease of [place] coronary artery without angina pectoris (3) DVT prophylaxis Current Visit: Yes Status: Acute Assessment and plan: - SQ heparin. - Subjective Interval history: No significant event noted. Patient was seen and examined this morning. Patient reports no significant difficulty breathing at this time. Patient denies fever, chills, nausea, vomiting, chest pain, abdominal pain. - Constitutional Vitals: Temp Pulse Resp BP Pulse Ox 97.7 F 87 20 158/91 91 L 06/01/16 07:15 06/01/16 07:15 06/01/16 07:15 06/01/16 07:15 06/01/16 08:00 General appearance: Present: cooperative, A&O X 3, no acute distress, answers questions appropriately - Head Head exam: Present: atraumatic, normocephalic - Eye Eye exam: Present: PERRL, conjuntiva pink, sclera anicteric Pupils: Present: PERRL - Neck Neck exam general surgery: Present: supple, trachea midline. Absent: lymphadenopathy - Respiratory Respiratory exam: Present: decreased breath sounds. Absent: accessory muscle use, rales, rhonchi, wheezes - Cardiovascular Cardiovascular exam: Present: RRR, +S1, +S2. Absent: rubs - GI/Abdominal GI/Abdominal exam: Present: normal bowel sounds, soft, no peritoneal signs. Absent: distended, tenderness - Extremities Exam Extremities exam: Present: pedal edema, warm, radial pulses palpable and symetrical. Absent: calf tenderness, cyanotic - Neurological Exam Neurological exam: Present: CN II-XII intact, oriented X3, no focal deficits. Absent: pronater drift, facial droop, speech deficit - Skin Skin exam: Present: dry, intact, warm Internal Medicine: Result - Labs CBC & Chem 7: 06/01/16 06:19 06/01/16 06:19 Labs: Short CBC 06/01/16 Range/Units 06:19 WBC 18.9 H (4.3-11.1) K/mcL Hgb 15.6 (12.9-16.9) g/dL Hct 50.5 H (37.5-50.1) % Plt Count 212 (140-400) K/mcL Neutrophils # 16.4 H (1.6-8.9) K/mcL BMP 05/31/16 06/01/16 07:06 06:19 Sodium 142 141 Potassium 4.6 H 4.8 H Chloride 105 103 Carbon Dioxide 27 32 H BUN 26 24 Creatinine 0.94 0.82 Glucose 157 H 113 H Calcium 8.6 8.9 - ABG Interpretation ABG results: ABG ABG pH 7.37 pH Units (7.32-7.45) 06/01/16 05:01 ABG pCO2 68 mmHg (35-45) H 06/01/16 05:01 ABG pO2 58 mmHg (85-104) L 06/01/16 05:01 ABG O2 Saturation 89 % (95-98) L 06/01/16 05:01 PT/INR, D-dimer PT 11.6 Seconds (9.4-12.1) 05/30/16 04:51 Consult Discharge Plan - Plan Referrals: Manjit To Jr, MD [Primary Care Provider] - 06/10/16 10:00 am <Jarrod Sweeney P - Last Filed: 06/01/16 18:58> Date of Encounter: 06/01/16 - Constitutional Vitals: Temp Pulse Resp BP Pulse Ox 98.1 F 92 20 163/82 94 L 06/01/16 17:03 06/01/16 17:03 06/01/16 17:03 06/01/16 17:03 06/01/16 17:03 Internal Medicine: Result - Labs CBC & Chem 7: 01/03/17 06:19 06/01/16 06:19 Labs: Short CBC 06/01/16 Range/Units 06:19 WBC 18.9 H (4.3-11.1) K/mcL Hgb 15.6 (12.9-16.9) g/dL Hct 50.5 H (37.5-50.1) % Plt Count 212 (140-400) K/mcL Neutrophils # 16.4 H (1.6-8.9) K/mcL BMP 06/01/16 06:19 Sodium 141 Potassium 4.8 H Chloride 103 Carbon Dioxide 32 H BUN 24 Creatinine 0.82 Glucose 113 H Calcium 8.9 - ABG Interpretation ABG results: ABG ABG pH 7.37 pH Units (7.32-7.45) 06/01/16 05:01 ABG pCO2 68 mmHg (35-45) H 06/01/16 05:01 ABG pO2 58 mmHg (85-104) L 06/01/16 05:01 ABG O2 Saturation 89 % (95-98) L 06/01/16 05:01 PT/INR, D-dimer PT 11.6 Seconds (9.4-12.1) 05/30/16 04:51 - Attending Attestation I examined this patient and my medical decision-making was reviewed with the EXERCISE INSTRUCT/PA/Advanced Practice Nurse/Resident Physician. I agree with the documented findings, disposition and treatment plan as described except to the extent set forth below.
--- NOTE | 2016-06-01 09:39 | Palliative Progress Note ---
Date of Encounter: 06/01/16 Time of Encounter: 09:40 - Assessment and plan (1) Pain Current Visit: Yes Status: Acute Assessment and plan: Patient began on Gabapentin yesterday for neuropathic type pain. Patient states hasn't noticed much difference with this, however, denies any type of neuropathic pain at present. He did have quite a bit of heartburn after he took last night. Will monitor. (2) Constipation by delayed colonic transit Current Visit: Yes Status: Acute Assessment and plan: + BM yesterday am. Continue Senokot and monitor (3) Goals of care, counseling/discussion Current Visit: Yes Status: Acute Assessment and plan: DNR/DNI established yesterday. I completed state DNR form today with him and provided copies. Awaiting approval for [facility] bed upon discharge. SW following closely - Time Spent With Patient Total time spent is greater than 50% in coordination of care (as documented) at patient's floor/unit and/or counseling patient: 25 - 35 minutes - Subjective Interval history: Patient up in chair. States breathing "about the same, better than when came in , but not back to baseline". + BM yesterday. Denies pain at present. No family present - Constitutional Vitals: Abnormal lab results WBC 18.9 K/mcL (4.3-11.1) H 06/01/16 06:19 Hct 50.5 % (37.5-50.1) H 06/01/16 06:19 MCHC 30.9 g/dL (31.6-35.5) L 06/01/16 06:19 MPV 8.9 fL (9.4-12.4) L 06/01/16 06:19 Neutrophils # 16.4 K/mcL (1.6-8.9) H 06/01/16 06:19 ABG pCO2 68 mmHg (35-45) H 06/01/16 05:01 ABG pO2 58 mmHg (85-104) L 06/01/16 05:01 ABG HCO3 39.3 mEQ/L (21-27) H 06/01/16 05:01 ABG Total CO2 41.4 mEq/L (20-26) H 06/01/16 05:01 ABG O2 Saturation 89 % (95-98) L 06/01/16 05:01 ABG Base Excess 10.9 mEq/L (-2.0 to 3.0) H 06/01/16 05:01 Potassium 4.8 mEq/L (3.5-4.5) H 06/01/16 06:19 Carbon Dioxide 32 mEq/L (19-29) H 06/01/16 06:19 BUN/Creatinine Ratio 29 (6-26) H 06/01/16 06:19 Glucose 113 mg/dL (70-99) H 06/01/16 06:19 Hemoglobin A1c 5.7 % (-5.6) H 05/30/16 04:51 Albumin 3.1 g/dL (3.5-5.0) L 05/30/16 04:51 Globulin 3.8 g/dL (2.4-3.5) H 05/30/16 04:51 Albumin/Globulin Ratio 0.8 (1.1-2.2) L 05/30/16 04:51 TSH 0.325 mcIU/mL (0.350-4.840) L 05/30/16 04:51 General appearance: Present: no acute distress - Expanded Respiratory Exam Location: decreased breath sounds: Left, Right, Lower, wheezes: Left, Upper - Cardiovascular Cardiovascular exam: Present: +S1, +S2 - GI/Abdominal GI/Abdominal exam: Present: normal bowel sounds, soft - Extremities Exam Extremities exam: Present: normal capillary refill, normal inspection - Neurological Exam Neurological exam: Present: alert, oriented X3, strengths equal and symetr throughout - Skin Skin exam: Present: dry, normal color, warm Palliative Quality Palliative Quality: Screen for Code Status: Yes, Screen for Goals of Care: Yes, Screen for Pain: Yes, If Pain Regimen Started, Initiate Bowel Regimen: Yes, Screen for Nausea/Vomitting: Yes Code Status: 05/29/16 10:04 Resuscitation Status: Active [RES] Routine Comment: Resuscitation Status: [id number] - Labs CBC & Chem 7: 06/01/16 06:19 06/01/16 06:19 Labs: Laboratory Results - last 24 hr 05/31/16 06/01/16 06/01/16 07:06 05:01 06:19 WBC 18.9 H RBC 5.16 Hgb 15.6 Hct 50.5 H MCV 97.9 MCH 30.2 MCHC 30.9 L RDW 12.5 Plt Count 212 MPV 8.9 L Immature Gran % 1.4 Seg Neutrophils % 86.7 Lymphocytes % 5.4 Monocytes % 6.2 Eosinophils % 0.0 Basophils % 0.3 Neutrophils # 16.4 H Lymphocytes # 1.0 Monocytes # 1.2 Eosinophils # 0.0 Basophils # 0.1 ABG pH 7.37 ABG pCO2 68 H ABG pO2 58 L ABG HCO3 39.3 H ABG Total CO2 41.4 H ABG O2 Saturation 89 L ABG Base Excess 10.9 H Blood Gas Modality NC Inspired O2 28 Sodium 142 Potassium 4.6 H Chloride 105 Carbon Dioxide 27 BUN 26 Creatinine 0.94 Est GFR ( Amer) > 60 Est GFR (Non-Af Amer) > 60 BUN/Creatinine Ratio 28 H Glucose 157 H Calculated Osmolality 302 H Calcium 8.6 06/01/16 06:19 WBC RBC Hgb Hct MCV MCH MCHC RDW Plt Count MPV Immature Gran % Seg Neutrophils % Lymphocytes % Monocytes % Eosinophils % Basophils % Neutrophils # Lymphocytes # Monocytes # Eosinophils # Basophils # ABG pH ABG pCO2 ABG pO2 ABG HCO3 ABG Total CO2 ABG O2 Saturation ABG Base Excess Blood Gas Modality Inspired O2 Sodium 141 Potassium 4.8 H Chloride 103 Carbon Dioxide 32 H BUN 24 Creatinine 0.82 Est GFR ( Amer) > 60 Est GFR (Non-Af Amer) > 60 BUN/Creatinine Ratio 29 H Glucose 113 H Calculated Osmolality 297 Calcium 8.9 - ABG Interpretation ABG results: ABG ABG pH 7.37 pH Units (7.32-7.45) 06/01/16 05:01 ABG pCO2 68 mmHg (35-45) H 06/01/16 05:01 ABG pO2 58 mmHg (85-104) L 06/01/16 05:01 ABG O2 Saturation 89 % (95-98) L 06/01/16 05:01 PT/INR, D-dimer PT 11.6 Seconds (9.4-12.1) 05/30/16 04:51 Consult Discharge Plan - Plan Referrals: Manjit To Jr, MD [Primary Care Provider] - 06/10/16 10:00 am
[2016-06-01] MEDS: Famotidine 20 MG TABLET PO SCH ×2 (09:50→21:21)
[2016-06-01] MEDS: Aspirin 81 MG TAB.CHEW PO SCH (09:50)
[2016-06-01] MEDS: Sennosides/Docusate Sodium TABLET PO SCH ×2 (09:50→21:22)
[2016-06-01] MEDS: Levofloxacin 500 MG/100 ML 500 MG/100 ML BAG IVPB SCH (09:51)
[2016-06-01] MEDS: predniSONE 20 MG TABLET PO SCH (09:51)
[2016-06-01] MEDS: Gabapentin 300 MG CAPSULE PO SCH (21:21)
[2016-06-01] MEDS: Melatonin 3 MG TABLET PO PRN (21:22)
[2016-06-02] MEDS: *HR* Heparin 5,000 UNIT/ML VIAL SQ SCH ×2 (00:31→09:29)
[2016-06-02] MEDS: Ipratropium/Albuterol Neb 3 ML IH SCH ×2 (04:06→10:13)
[2016-06-02 05:50] LABS: Basophils # 0.1 K/mcL (0.0-0.2); Basophils % 0.4 %; Eosinophils % 0.2 %; Hematocrit 46.4 % (37.5-50.1); Hemoglobin 14.3 g/dL (12.9-16.9); Immature Granulocytes % 1.8 % (0-4); Lymphocytes # 1.5 K/mcL (0.6-4.6); Lymphocytes % 11.1 %; Mean Corpuscular HGB Conc 30.8 g/dL (31.6-35.5); Mean Corpuscular Hemoglobin 30.8 pg (28.0-33.3); Mean Corpuscular Volume 99.8 fL (83.0-100.0); Mean Platelet Volume 8.9 fL (9.4-12.4); Monocytes # 1.2 K/mcL (0.0-1.3); Monocytes % 8.5 %; Neutrophils # 10.6 K/mcL (1.6-8.9); Platelet Count 191 K/mcL (140-400); Red Blood Count 4.65 M/mcL (4.19-5.50); Red Cell Distribution Width 12.8 % (11.5-14.5)
[2016-06-02 07:03] LABS: BUN/Creatinine Ratio 27 (6-26); Blood Urea Nitrogen 22 mg/dL (8-26); Calcium 8.6 mg/dL (8.6-10.8); Carbon Dioxide 33 mEq/L (19-29); Chloride 101 mEq/L (98-109); Glucose 79 mg/dL (70-99); Osmolality,Calculated 292 (280-300); Potassium 4.4 mEq/L (3.5-4.5); Sodium 140 mEq/L (136-145); eGFR For African Americans > 60 (> 60); eGFR For Non-African Americans > 60 (> 60)
[2016-06-02 07:41] VITALS: BP 156/112
--- NOTE | 2016-06-02 09:21 | Palliative Progress Note ---
Date of Encounter: 06/02/16 Time of Encounter: 08:45 - Assessment and plan (1) Pain Current Visit: Yes Status: Acute Assessment and plan: Under control with current medications. Patient's pain seems to be slightly better since adding in the gabapentin. Patient will go to twice a day today and then 3 times a day tomorrow. End cane at 300 3 times a day. She may be going at [facility] today. (2) Goals of care, counseling/discussion Current Visit: Yes Status: Acute Assessment and plan: CODE STATUS DNR CCA, DNI. Going to [facility] today. Patient does meet [facility] for hospice at this time, however he wishes to try rehabilitation first and consider his options. (3) Dyspnea Current Visit: Yes Status: Acute Assessment and plan: Slowly getting better, continue current medications [facility] for pulmonary rehabilitation. Qualifiers: Dyspnea type: shortness of breath Qualified Code(s): R06.02 - Shortness of breath (4) Constipation by delayed colonic transit Current Visit: Yes Status: Acute Assessment and plan: Patient has been refusing bowel regimen, states he is having bowel movements although these are not recorded continue to watch. (5) Acute and chronic respiratory failure with hypoxia Current Visit: Yes Status: Acute Assessment and plan: Slowly resolving, patient does meet hospice criteria although just barely, however at this time patient does not wish to avail himself of it wishes to continue with rehabilitation and then consider his options. Patient may well be going to [facility] today for pulmonary rehabilitation. - Time Spent With Patient Total time spent is greater than 50% in coordination of care (as documented) at patient's floor/unit and/or counseling patient: - Subjective Interval history: The patient reports lots of people in his room yesterday. Readings about the same may be slightly better appetite is good patient is moving his bowels. ( Although nothing is recorded) - Constitutional Vitals: Abnormal lab results WBC 13.6 K/mcL (4.3-11.1) H 06/02/16 05:01 MCHC 30.8 g/dL (31.6-35.5) L 06/02/16 05:01 MPV 8.9 fL (9.4-12.4) L 06/02/16 05:01 Neutrophils # 10.6 K/mcL (1.6-8.9) H 06/02/16 05:01 ABG pCO2 68 mmHg (35-45) H 06/01/16 05:01 ABG pO2 58 mmHg (85-104) L 06/01/16 05:01 ABG HCO3 39.3 mEQ/L (21-27) H 06/01/16 05:01 ABG Total CO2 41.4 mEq/L (20-26) H 06/01/16 05:01 ABG O2 Saturation 89 % (95-98) L 06/01/16 05:01 ABG Base Excess 10.9 mEq/L (-2.0 to 3.0) H 06/01/16 05:01 Carbon Dioxide 33 mEq/L (19-29) H 06/02/16 06:02 BUN/Creatinine Ratio 27 (6-26) H 06/02/16 06:02 Hemoglobin A1c 5.7 % (-5.6) H 05/30/16 04:51 Albumin 3.1 g/dL (3.5-5.0) L 05/30/16 04:51 Globulin 3.8 g/dL (2.4-3.5) H 05/30/16 04:51 Albumin/Globulin Ratio 0.8 (1.1-2.2) L 05/30/16 04:51 TSH 0.325 mcIU/mL (0.350-4.840) L 05/30/16 04:51 General appearance: Present: no acute distress - Head Head exam: Present: atraumatic, normal inspection - Eye Eye exam: Present: normal appearance - ENT ENT exam: Present: mucous membranes moist - Neck Neck exam: Present: normal inspection - Respiratory Respiratory exam: Present: decreased breath sounds - Cardiovascular Cardiovascular exam: Present: RRR - GI/Abdominal GI/Abdominal exam: Present: normal bowel sounds, soft. Absent: tenderness - Extremities Exam Extremities exam: Absent: tenderness - Neurological Exam Neurological exam: Present: alert, oriented X3 - Psychiatric Psychiatric exam: Present: normal affect, normal mood. Absent: agitated, anxious - Skin Skin exam: Present: dry, warm Palliative Quality Palliative Quality: Screen for Code Status: Yes, Screen for Goals of Care: Yes, Screen for Pain: Yes, If Pain Regimen Started, Initiate Bowel Regimen: Yes, Screen for Nausea/Vomitting: Yes Code Status: 05/29/16 10:04 Resuscitation Status: Active [RES] Routine Comment: Resuscitation Status: [id number] - Labs CBC & Chem 7: 06/02/16 05:01 06/02/16 06:02 Labs: Laboratory Results - last 24 hr 06/02/16 06/02/16 06/02/16 05:01 05:01 06:02 WBC 13.6 H RBC 4.65 Hgb 14.3 Hct 46.4 MCV 99.8 MCH 30.8 MCHC 30.8 L RDW 12.8 Plt Count 191 MPV 8.9 L Immature Gran % 1.8 Seg Neutrophils % 78.0 Lymphocytes % 11.1 Monocytes % 8.5 Eosinophils % 0.2 Basophils % 0.4 Neutrophils # 10.6 H Lymphocytes # 1.5 Monocytes # 1.2 Eosinophils # 0.0 Basophils # 0.1 Sodium 140 Potassium 4.4 Chloride 101 Carbon Dioxide 33 H BUN 22 Creatinine 0.83 Est GFR ( Amer) > 60 Est GFR (Non-Af Amer) > 60 BUN/Creatinine Ratio 27 H Glucose 79 Calculated Osmolality 292 Calcium 8.6 Specimen Rejected Hemolyzed - ABG Interpretation ABG results: ABG ABG pH 7.37 pH Units (7.32-7.45) 06/01/16 05:01 ABG pCO2 68 mmHg (35-45) H 06/01/16 05:01 ABG pO2 58 mmHg (85-104) L 06/01/16 05:01 ABG O2 Saturation 89 % (95-98) L 06/01/16 05:01 PT/INR, D-dimer PT 11.6 Seconds (9.4-12.1) 05/30/16 04:51 Consult Discharge Plan - Plan Referrals: Manjti To Jr, MD [Primary Care Provider] - 06/10/16 10:00 am
[2016-06-02] MEDS: Famotidine 20 MG TABLET PO SCH (09:29)
[2016-06-02] MEDS: Levofloxacin 500 MG/100 ML 500 MG/100 ML BAG IVPB SCH (09:30)
[2016-06-02] MEDS: predniSONE 20 MG TABLET PO SCH (09:30)
[2016-06-02] MEDS: Aspirin 81 MG TAB.CHEW PO SCH (09:30)
[2016-06-02] MEDS: Sennosides/Docusate Sodium TABLET PO SCH (09:31)
--- NOTE | 2016-06-02 09:57 | Discharge Summary ---
<Timur Kiran - Last Filed: 06/02/16 13:33> Date of Encounter: 06/02/16 Time of Encounter: 09:15 - Discharge Diagnosis (1) COPD exacerbation Priority: Primary Status: Acute (2) CAD (coronary artery disease) Priority: Secondary Status: Chronic Qualifiers: Coronary Disease-Associated Artery/Lesion type: [place] artery [place] vs. transplanted heart: sioux heart Associated angina: angina presence unspecified Qualified Code(s): I25.10 - Atherosclerotic heart disease of sioux coronary artery without angina pectoris (3) DVT prophylaxis Priority: Secondary Status: Acute - Discharge Medications Prescriptions: Gabapentin [Neurontin] 300 mg PO TID #90 capsule GuaiFENesin ER [Mucinex] 600 mg PO BID #60 tbbp.12hr Levofloxacin [Levaquin] 750 mg PO DAILY #3 tablet PredniSONE See Taper PO DAILY #18 tablet Home Medications: Aspirin [Lo-Dose Aspirin EC] 162 mg PO DAILY 05/29/16 [History] Beclomethasone Diprop 40mcg [QVAR 40 mcg] 1 puff IH BID 05/29/16 [History] Folic Acid 0.8 mg PO DAILY 05/29/16 [History] Ibuprofen [Motrin] 800 mg PO TID 05/29/16 [History] Ipratropium/Albuterol Neb [Duoneb] 3 ml IH Q6HR 05/29/16 [History] Metoprolol [Lopressor] 25 mg PO DAILY 05/29/16 [History] Multivitamin [Multi-Day Vitamins] 1 tab PO DAILY 05/29/16 [History] Simvastatin [Zocor] 40 mg PO DAILY 05/29/16 [History] Gabapentin [Neurontin] 300 mg PO TID #90 capsule 06/02/16 [Rx] GuaiFENesin ER [Mucinex] 600 mg PO BID #60 tbbp.12hr 06/02/16 [Rx] Levofloxacin [Levaquin] 750 mg PO DAILY #3 tablet 06/02/16 [Rx] PredniSONE See Taper PO DAILY #18 tablet 06/02/16 [Rx] Allergies/Adverse Reactions: Allergies No Known Allergies Allergy (Verified 05/29/16 08:40) Date of admission: 05/30/16 14:43 Primary care physician: Manjit To Jr, MD Consults: 05/30/16 18:54 Consult to Occupational Therapy [CONS] Routine Comment: Evaluate, develop and implement POC Consult to Physical Therapy [CONS] Routine Comment: Evaluate, develop and implement POC 05/31/16 15:23 Consult to Respiratory Therapy [CONS] Routine Reason for Consult: Place patient on nocturnal pulse ox study tonight to qualify for bipap, place results in chart Call Completed: No Discharging clinician: Timur Kiran Anticipated date of discharge: 06/02/16 - Patient Status Disposition: Transfer Inpatient Rehab Fac Condition: Fair Functional capacity at discharge: independent ambulation Overall status at discharge: patient is progressing back to baseline - Discharge Instructions Instructions: Chronic Obstructive Pulmonary Disease (DC), Chronic Hypertension (DC), Cigarette Smoking and Your Health, 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 You can take gabapentin 300 mg by mouth three times a day for pain. You can take guaifenesin ER 600 mg by mouth twice a day for cough. Please follow up with your primary care provider within one week. - Diet and Activity Activity: as per physical therapy, increase activity as tolerated Diet: low salt diet Hospital course: Mr. Holland is a 71 year old male with with PMH of COPD, CAD ([place] in 1998), chronic active smoker. Patient presented with worsening shortness of breath and productive cough and was admitted on 05/29/16 for acute exacerbation of COPD. CXR on admission found no focal pulmonary consolidation or effusion. Patient was treated with oxygen therapy, nebulizer therapy, systemic steroids and Levaquin. Palliative care was consulted to discuss goals of care with patient and his code status is changed to DNR-CCA-DNI. Patient's shortness of breath and productive cough significantly improves throughout hospitalization. Patient is qualified for BiPAP use based on his pulse oximetry result. Will discharge patient to [facility] with prednison kaitlin and 3-more day of PO Levaquin. Gabapentin is added for pain control. Patient will have follow up with his PCP within 1-2 weeks after discharge. - Time Spent with Patient Total time spent providing and/or coordinating discharge services: Greater than 30 minutes - Constitutional Vitals: Temp Pulse Resp BP Pulse Ox 97.8 F 94 16 156/112 95 06/02/16 07:37 06/02/16 07:37 06/02/16 07:37 06/02/16 07:37 06/02/16 07:37 General appearance: Present: cooperative, A&O X 3, no acute distress, answers questions appropriately - Head Head exam: Present: atraumatic, normocephalic - Eye Eye exam: Present: PERRL, conjuntiva pink, sclera anicteric Pupils: Present: PERRL - Neck Neck exam general surgery: Present: supple, trachea midline. Absent: lymphadenopathy - Respiratory Respiratory exam: Present: decreased breath sounds, wheezes (Mild). Absent: accessory muscle use, rales, rhonchi - Cardiovascular Cardiovascular exam: Present: RRR, +S1, +S2. Absent: diastolic murmur, gallop, rubs, systolic murmur - GI/Abdominal GI/Abdominal exam: Present: normal bowel sounds, soft, no peritoneal signs. Absent: distended, tenderness - Extremities Exam Extremities exam: Present: pedal edema (Mild), warm, radial pulses palpable and symetrical. Absent: calf tenderness, cyanotic - Neurological Exam Neurological exam: Present: CN II-XII intact, oriented X3, no focal deficits. Absent: pronater drift, facial droop, speech deficit - Skin Skin exam: Present: dry, intact, warm <Zahra,Jarrod P - Last Filed: 06/02/16 18:54> Date of Encounter: 06/02/16 Date of admission: 05/30/16 14:43 Primary care physician: Manjit To Jr, MD Consults: 05/30/16 18:54 Consult to Occupational Therapy [CONS] Routine Comment: Evaluate, develop and implement POC Consult to Physical Therapy [CONS] Routine Comment: Evaluate, develop and implement POC 05/31/16 15:23 Consult to Respiratory Therapy [CONS] Routine Reason for Consult: Place patient on nocturnal pulse ox study tonight to qualify for bipap, place results in chart Call Completed: No Hospital course: Mr. Holland is a 71 year old male - Time Spent with Patient Total time spent providing and/or coordinating discharge services: - Constitutional Vitals: Temp Pulse Resp BP Pulse Ox 97.8 F 94 16 156/112 95 06/02/16 07:37 06/02/16 07:37 06/02/16 07:37 06/02/16 07:37 06/02/16 07:37 - Attending Attestation I examined this patient and my medical decision-making was reviewed with the ROPE COILING MACHINE OPERATOR/PA/Advanced Practice Nurse/Resident Physician. I agree with the documented findings, disposition and treatment plan as described except to the extent set forth below.
--- NOTE | 2016-06-02 13:26 | Physician Discharge Referral ---
<Timur Kiran - Last Filed: 06/02/16 13:24> ExtendedCare Referral Info Transfer To: [facility] Provider in Charge after Transfer: PCP Institutional Level of Care: Skilled - Diagnosis (1) COPD exacerbation Status: Acute (2) CAD (coronary artery disease) Status: Chronic (3) DVT prophylaxis Status: Acute - Transfer Medications Prescriptions: Gabapentin [Neurontin] 300 mg PO TID #90 capsule GuaiFENesin ER [Mucinex] 600 mg PO BID #60 tbbp.12hr Levofloxacin [Levaquin] 750 mg PO DAILY #3 tablet PredniSONE See Taper PO DAILY #18 tablet Home Medications: Aspirin [Lo-Dose Aspirin EC] 162 mg PO DAILY 05/29/16 [History] Beclomethasone Diprop 40mcg [QVAR 40 mcg] 1 puff IH BID 05/29/16 [History] Folic Acid 0.8 mg PO DAILY 05/29/16 [History] Ibuprofen [Motrin] 800 mg PO TID 05/29/16 [History] Ipratropium/Albuterol Neb [Duoneb] 3 ml IH Q6HR 05/29/16 [History] Metoprolol [Lopressor] 25 mg PO DAILY 05/29/16 [History] Multivitamin [Multi-Day Vitamins] 1 tab PO DAILY 05/29/16 [History] Simvastatin [Zocor] 40 mg PO DAILY 05/29/16 [History] Gabapentin [Neurontin] 300 mg PO TID #90 capsule 06/02/16 [Rx] GuaiFENesin ER [Mucinex] 600 mg PO BID #60 tbbp.12hr 06/02/16 [Rx] Levofloxacin [Levaquin] 750 mg PO DAILY #3 tablet 06/02/16 [Rx] PredniSONE See Taper PO DAILY #18 tablet 06/02/16 [Rx] Allergies/Adverse Reactions: Allergies No Known Allergies Allergy (Verified 05/29/16 08:40) - Respiratory Orders Oxygen / L per min (2L, can be titrated to maintain oxygen sat above 88%.), Other (Patient is qualified for BiPAP use.) Smoking Cessation: Smoking cessation has been advised. For more information, call the [place] Tobacco Quit Line at 9-506-OTEY-NOW. - Ancillary Orders May use pressure relief devices daily prn - Advance Directives Code Status: DNR-Arrest/Don't Intubate - Mobility Orders Ambulate - Rehabiliation Orders Rehab Potential: Fair Rehab Orders: Evaluation for Physical Therapy - Diet Orders No Added Salt (CULLEN) (Low salt diet) CERTIFICATION: I certify that the transfer of the above named patient to an Extended Care Facility is necessary for the continuing treatment of the diagnosis listed. The above information is true and accurate reflection of patient's current condition. Confidential - Redisclosure prohibited without a patient's written consent. <Jarrod Sweeney P - Last Filed: 06/02/16 18:54> - Respiratory Orders Smoking Cessation: Smoking cessation has been advised. For more information, call the [place] Tobacco Quit Line at 3-290-DXKINOW. CERTIFICATION: I certify that the transfer of the above named patient to an Extended Care Facility is necessary for the continuing treatment of the diagnosis listed. The above information is true and accurate reflection of patient's current condition. Confidential - Redisclosure prohibited without a patient's written consent.
[2016-06-02] MEDS ORDERED: Gabapentin 300 MG CAPSULE PO SCH (15:00)
== END 2016-06-02 13:25 | DRG 190 ==
LOC: EMEROO 08:32 → 2NENU 08:32
PROVIDERS: ADMIT Internal Medicine; ATTEND Internal Medicine

== ENCOUNTER 2016-06-23 18:34 | Inpatient (IN) ==
[2016-06-23] MEDS ORDERED: methylPREDNISolone 125 MG/2 ML VIAL IVP ONE (18:37)
[2016-06-23] MEDS ORDERED: Ipratropium/Albuterol Neb 3 ML IH ONE (18:37)
[2016-06-23] MEDS ORDERED: Albuterol 2.5 MG/3 ML NEBULIZER IH ONE (18:37)
[2016-06-23] MEDS ORDERED: Ipratropium/Albuterol Neb 3 ML ONE (18:38)
[2016-06-23] MEDS ORDERED: Albuterol 2.5 MG/3 ML NEBULIZER ONE (18:38)
[2016-06-23 18:53] LABS: Basophils % 0.5 %; Eosinophils # 0.5 K/mcL (0.0-0.6); Eosinophils % 5.8 %; Hematocrit 46.7 % (37.5-50.1); Hemoglobin 14.6 g/dL (12.9-16.9); Immature Granulocytes % 1.3 % (0-4); Lymphocytes % 12.2 %; Mean Corpuscular HGB Conc 31.3 g/dL (31.6-35.5); Mean Corpuscular Hemoglobin 30.3 pg (28.0-33.3); Mean Corpuscular Volume 96.9 fL (83.0-100.0); Mean Platelet Volume 9.1 fL (9.4-12.4); Monocytes # 0.7 K/mcL (0.0-1.3); Monocytes % 9.4 %; Neutrophils # 5.5 K/mcL (1.6-8.9); Platelet Count 192 K/mcL (140-400); Red Blood Count 4.82 M/mcL (4.19-5.50); Red Cell Distribution Width 12.2 % (11.5-14.5); Segmented Neutrophils % 70.8 %
[2016-06-23 19:04] LABS: BUN/Creatinine Ratio 13 (6-26); Blood Urea Nitrogen 16 mg/dL (8-26); Calcium 9.2 mg/dL (8.6-10.8); Carbon Dioxide 34 mEq/L (19-29); Chloride 98 mEq/L (98-109); Glucose 90 mg/dL (70-99); Osmolality,Calculated 293 (280-300); Potassium 4.2 mEq/L (3.5-4.5); Sodium 141 mEq/L (136-145); eGFR For African Americans > 60 (> 60); eGFR For Non-African Americans 56 (> 60)
--- NOTE | 2016-06-23 19:07 | Emergency Department Note ---
Disposition Clinical Impression: Acute exacerbation of chronic obstructive airways disease, Acute and chronic respiratory failure with hypoxia Disposition: Admitted As Inpatient Condition: Fair Referrals: Manjit To Jr, MD [Primary Care Provider] - Forms: ED Satisfaction Letter SOB HPI - General Chief Complaint: ED Shortness of Breath/Dyspnea Stated Complaint: [place] Time Seen by Provider: 06/23/16 18:36 Source: patient Limitations: no limitations Nursing Notes Reviewed: Yes Vital Signs Reviewed: Yes - History of Present Illness Pt Subjective Complaint: shortness of breath Onset (ago): day(s) (2) Context: recent illness Severity: moderate Consistency/Duration: gradually worsening Improves with: rest, bronchodilators Worsens with: exertion Known history of: COPD Associated symptoms: Reports: wheezing. Denies: fever, nausea/vomiting Treatment prior to arrival: bronchodilator Cough present: No - Related Data Home oxygen amount: 4 liters Home Medications Medication Instructions Recorded Confirmed Aspirin [Lo-Dose Aspirin EC] 162 mg PO DAILY 05/29/16 05/29/16 Folic Acid 0.8 mg PO DAILY 05/29/16 05/29/16 Multivitamin [Multi-Day Vitamins] 1 tab PO DAILY 05/29/16 05/29/16 Previous Rx's Medication Instructions Recorded Gabapentin [Neurontin] 300 mg PO TID #90 capsule 06/02/16 GuaiFENesin ER [Mucinex] 600 mg PO BID #60 tbbp.12hr 06/02/16 Albuterol Neb [Proventil Neb] 2.5 mg IH Q4H PRN #30 inhsol 06/09/16 Alprazolam [Xanax 0.5 MG Tablet] 0.5 mg PO Q6HR PRN #12 tablet 06/09/16 Beclomethasone Diprop 40mcg [QVAR 1 puff IH BID 30 Days 06/09/16 40 mcg] Ibuprofen [Motrin] 800 mg PO TID PRN #0 06/09/16 Metoprolol XL (24 HR) Succ [Toprol 50 mg PO DAILY #30 tab.er.24h 06/09/16 Xl] Simvastatin [Zocor] 40 mg PO DAILY #30 tablet 06/09/16 Tiotropium [Spiriva] 18 mcg IH DAILYR 30 Days 06/09/16 Allergies Allergy/AdvReac Type Severity Reaction Status Date / Time No Known Allergies Allergy Verified 06/23/16 18:35 All systems ED: reviewed and negative except as stated. Constitutional: Denies: fever, chills Respiratory: Reports: dyspnea, wheezes Gastrointestinal: Denies: abdominal pain, nausea, vomiting Past Medical History - Past Medical History Medical history: Reports: COPD, hyperlipidemia, hypertension, myocardial infarction Psychiatric history: Reports: no psych history - Social History Smoking Status: Former smoker Smokeless Tobacco Status: No Alcohol use: Reports: none Drug use: Reports: none Physical Exam - General Limitations: no limitations General appearance: alert, in distress - Eye Eye exam: Present: normal appearance, PERRL, EOMI - ENT ENT exam: normal exam, normal oropharynx, mucous membranes moist - Neck Neck exam: Present: normal inspection, full ROM, trachea midline - Chest Chest inspection: Present: normal inspection, symmetric chest wall rise - Respiratory Respiratory exam: Present: respiratory distress, wheezes (scatttered), accessory muscle use, prolonged expiratory phase - Cardiovascular Cardiovascular exam: Present: tachycardia - Abdominal Exam Abdominal exam: Present: soft, Non-Tender. Absent: tenderness, distention, guarding, rebound, rigidity - Expanded Lower Extremity Exam Hip/Pelvis exam: Present: normal inspection, full ROM - Back Exam Back exam: Present: normal inspection, full ROM. Absent: tenderness - Neurological Exam Neurological exam: Present: alert, oriented X3 - Psychiatric Psychiatric exam: Present: normal affect, normal mood Course - Reevaluation(s) Reevaluation #1: patient feels better, now back to 4L [place] his home levels. Time: 20:16 - Consultations Consultation #1: dr. jara, [place] only most probable atelectasis than pneumonia Time: 20:32 Vital Signs Temperature 98.2 F 06/23/16 18:35 Pulse Rate 86 06/23/16 18:35 Respiratory Rate 24 06/23/16 18:35 Blood Pressure 165/77 06/23/16 18:35 O2 Sat by Pulse Oximetry 98 06/23/16 18:35 Temperature 98.2 F 06/23/16 18:35 Pulse Rate 84 06/23/16 19:00 Respiratory Rate 120 06/23/16 19:00 Blood Pressure 150/70 06/23/16 19:00 O2 Sat by Pulse Oximetry 97 06/23/16 19:00 Oxygen Delivery Oxygen Delivery Aerosol Mask Shortness of Breath/Dyspnea - Differential Diagnosis Likely: acute exacerbation of chronic obstructive airways disease, congestive heart failure, pneumonia, pulmonary embolism, pneumothorax, arrhythmia - Medical Records Medical records reviewed: Yes I reviewed the patient's medical records. - Lab Data Lab results reviewed: Yes I reviewed the patient's lab results. Result diagrams: 06/23/16 18:40 06/23/16 18:40 Lab Results 06/23/16 06/23/16 06/23/16 Range/Units 18:40 18:40 18:40 WBC 7.8 (4.3-11.1) K/mcL RBC 4.82 (4.19-5.50) M/mcL Hgb 14.6 (12.9-16.9) g/dL Hct 46.7 (37.5-50.1) % MCV 96.9 (83.0-100.0) fL MCH 30.3 (28.0-33.3) pg MCHC 31.3 L (31.6-35.5) g/dL RDW 12.2 (11.5-14.5) % Plt Count 192 (140-400) K/mcL MPV 9.1 L (9.4-12.4) fL Immature Gran % 1.3 (0-4) % Seg Neutrophils % 70.8 % Lymphocytes % 12.2 % Monocytes % 9.4 % Eosinophils % 5.8 % Basophils % 0.5 % Neutrophils # 5.5 (1.6-8.9) K/mcL Lymphocytes # 1.0 (0.6-4.6) K/mcL Monocytes # 0.7 (0.0-1.3) K/mcL Eosinophils # 0.5 (0.0-0.6) K/mcL Basophils # 0.0 (0.0-0.2) K/mcL Sodium 141 (136-145) mEq/L Potassium 4.2 (3.5-4.5) mEq/L Chloride 98 (98-109) mEq/L Carbon Dioxide 34 H (19-29) mEq/L BUN 16 (8-26) mg/dL Creatinine 1.26 H (0.72-1.25) mg/dL Est GFR ( Amer) > 60 (> 60) Est GFR (Non-Af Amer) 56 L (> 60) BUN/Creatinine Ratio 13 (6-26) Glucose 90 (70-99) mg/dL Calculated Osmolality 293 (280-300) Calcium 9.2 (8.6-10.8) mg/dL Troponin I 0.02 (0-0.03) ng/mL B-Natriuretic Peptide (0-100) pg/mL 06/23/16 Range/Units 18:40 WBC (4.3-11.1) K/mcL RBC (4.19-5.50) M/mcL Hgb (12.9-16.9) g/dL Hct (37.5-50.1) % MCV (83.0-100.0) fL MCH (28.0-33.3) pg MCHC (31.6-35.5) g/dL RDW (11.5-14.5) % Plt Count (140-400) K/mcL MPV (9.4-12.4) fL Immature Gran % (0-4) % Seg Neutrophils % % Lymphocytes % % Monocytes % % Eosinophils % % Basophils % % Neutrophils # (1.6-8.9) K/mcL Lymphocytes # (0.6-4.6) K/mcL Monocytes # (0.0-1.3) K/mcL Eosinophils # (0.0-0.6) K/mcL Basophils # (0.0-0.2) K/mcL Sodium (136-145) mEq/L Potassium (3.5-4.5) mEq/L Chloride (98-109) mEq/L Carbon Dioxide (19-29) mEq/L BUN (8-26) mg/dL Creatinine (0.72-1.25) mg/dL Est GFR ( Amer) (> 60) Est GFR (Non-Af Amer) (> 60) BUN/Creatinine Ratio (6-26) Glucose (70-99) mg/dL Calculated Osmolality (280-300) Calcium (8.6-10.8) mg/dL Troponin I (0-0.03) ng/mL B-Natriuretic Peptide 39 (0-100) pg/mL - EKG Data EKG attestation: Yes I reviewed and interpreted this EKG. Critical Care Time Critical Care Time: Yes Total Critical Care Time: 35 Attestation: Critical care performed: Time is exclusive of separately billable procedures. Time includes: direct patient care, patient reassessment, coordination of patient care, interpretation of data (laboratory data, radiology data, and respiratory data), review of patient's medical records, medical consultation and documentation of patient care. Procedures included in critical care time: Procedures excluded from critical care time:
--- NOTE | 2016-06-23 19:17 | Emergency Department Note ---
START Narrative - START START: Patient seen and examined on arrival by EMS. Patient had severe shortness of breath. Known COPD with severe emphysema. He was just discharged from the hospital approximately 2 weeks ago with similar symptoms and complaint Y said that he has been doing his at home medications without any relief of his symptoms at this time. She denies any productive sputum or cough. Patient is denying chest pain fevers chills nausea vomiting or diarrhea. He has no other symptom presentation this time except for significantly increased work of breathing poor aeration and hypoxia. Nonrebreather placed by EMS and transported. No breathing treatments were provided. Patient was initially triaged and evaluated. 3 DuoNeb's and 2 albuterol inhalers were added on for treatment this time steroids to be given as well as basic laboratory workup and chest x-ray. Recent completion course of care by Dr. Perez
[2016-06-23] MEDS ORDERED: Levofloxacin 750 MG/150 ML 750 MG/150 ML BAG IVPB ONE (20:35)
[2016-06-23] MEDS ORDERED: Acetaminophen 325 MG TABLET PO PRN (22:27)
[2016-06-23] MEDS ORDERED: *HR* HYDROcodone/Acet 5/325 mg TABLET PO PRN (22:27)
[2016-06-23] MEDS ORDERED: Naloxone 0.4 MG/ML INJ IVP PRN (22:27)
[2016-06-23] MEDS ORDERED: ALPRAZolam 0.5 MG TABLET PO PRN (22:32)
--- NOTE | 2016-06-23 22:46 | Internal Med History&Physical ---
Date of Encounter: 06/23/16 Time of Encounter: 22:38 Assessment and Plan (1) Acute and chronic respiratory failure with hypoxia Current visit: Yes Status: Acute Patient with COPD on 4L NC at home and bipap at night. He presents with increased shortness of breath, dyspnea, cough, and increased oxygen requirements. He is satting 92% on 8L NC. ABG ordered Bipap over night Duoneb treatments QIDR Albuterol nebulizer Q2hr PRN titrate O2 to maintain Oxygen saturation > 88% (2) Acute exacerbation of chronic obstructive airways disease Current visit: Yes Status: Acute Patient with COPD on 4L NC at home and bipap at night. He presents with increased shortness of breath, dyspnea, cough, and increased oxygen requirements. He is satting 92% on 8L NC. Bipap over night Duoneb treatments QIDR Albuterol nebulizer Q2hr PRN 40mg Solumedrol IVP Q8hrs titrate O2 to maintain Oxygen saturation > 88% (3) Acute kidney injury Current visit: Yes Status: Acute Creatinine mildly elevated to 1.26 up from baseline of 0.88 Avoid NSAIDs Check chemistry in the morning. (4) Pneumonia Current visit: Yes Status: Acute Patient with increased shortness of breath and cough over the last few days. CXR shows bilateral lower lobe infiltrate or atelectasis, right worse than left. NOrmal WBC count, afebrile. Patient was hospitalized within the last month for COPD exacerbation. Given absence of fever, WBC elevation, cough, low likelihood of pneumonia, but will get CT of chest without contrast and treat with IV levaquin. Blood cultures drawn Sputum culture ordered Duoneb treatments QIDR Albuterol nebulizer Q2hr PRN Bipap overnight Titrate O2 to maintain Oxygen saturation > 88% Qualifiers: Pneumonia type: due to unspecified organism Laterality: bilateral Lung location: lower lobe of lung Qualified Code(s): J18.9 - Pneumonia, unspecified organism (5) HTN (hypertension) Current visit: No Status: Acute Continue home dose of metoprolol. Qualifiers: Hypertension type: essential hypertension Qualified Code(s): I10 - Essential (primary) hypertension (6) DVT prophylaxis Current visit: Yes Status: Acute Ambulate as tolerated anti-embolic stockings Heparin 5,000u SQ BID Internal Medicine - H&P: HPI Chief complaint: shortness of breath Admitted From: Emergency Dept Plans for Post Hospital Care: Home History of present illness: Mr. Holland is a 71 year old male with HTN, hyperlipidemia, CAD, COPD on 4L oxygen at home, presented to the ED today with increasing shortness of breath. He was recently admitted in the last month with COPD exacerbation, and was doing well since discharge until a few days ago when he noted increased shortness of breath and increased coughing. He reports his cough was initially productive of sputum, but now he can't get anything up. He reports pain with cough, but denies pain with deep breaths. He denies any fever, chills, sweats, body aches, chest pain, palpitations, nausea or vomiting. Evaluation in the ED was significant for CXR which showed bilateral lower lobe infiltrates or atelectasis, right worse than left. He also has acute kidney injury with creatinine of 1.26 up from baseline of 0.88. EKG showed sinus tachycardia with HR 104 and incomplete right bundle branch block, no ischemic changes. Troponin negative at 0.02, BNP negative at 39. He was given duoneb treatments, IV solumedrol and started on Levaquin for pneumonia in the ED. On exam, the patient appears dyspnic with increased work of breathing, satting 92% on 8L NC. He is tachycardic with HR of 105. Lung sounds are diminished. Past Med Surg Social Fam HX - Past Medical History Medical history: COPD, coronary artery disease, hyperlipidemia, hypertension, myocardial infarction Psychiatric history: no psych history - Past Surgical History Surgical History: non-contributory, other (tailbone surgery) - Social History Smoking Status: Former smoker (53 pack year history) Smokeless Tobacco Status: No Alcohol use: none Drug use: none - Family History Mother Living Status: Age at : 70 Cause of : PE Father Living Status: Cause of : emphysema Hx Family Respiratory Disorders: Yes Internal Medicine - H&P: Meds Aspirin [Lo-Dose Aspirin EC] 162 mg PO DAILY 05/29/16 [History] Folic Acid 0.8 mg PO DAILY 05/29/16 [History] Multivitamin [Multi-Day Vitamins] 1 tab PO DAILY 05/29/16 [History] Gabapentin [Neurontin] 300 mg PO TID #90 capsule 06/02/16 [Rx] GuaiFENesin ER [Mucinex] 600 mg PO BID #60 tbbp.12hr 06/02/16 [Rx] Albuterol Neb [Proventil Neb] 2.5 mg IH Q4H PRN #30 inhsol 06/09/16 [Rx] Alprazolam [Xanax 0.5 MG Tablet] 0.5 mg PO Q6HR PRN #12 tablet 06/09/16 [Rx] Beclomethasone Diprop 40mcg [QVAR 40 mcg] 1 puff IH BID 30 Days 06/09/16 [Rx] Ibuprofen [Motrin] 800 mg PO TID PRN #0 06/09/16 [Rx] Metoprolol XL (24 HR) Succ [Toprol Xl] 50 mg PO DAILY #30 tab.er.24h 06/09/16 [ Rx] Simvastatin [Zocor] 40 mg PO DAILY #30 tablet 06/09/16 [Rx] Tiotropium [Spiriva] 18 mcg IH DAILYR 30 Days 06/09/16 [Rx] Allergies No Known Allergies Allergy (Verified 06/23/16 18:35) All Systems PM: A 10-system review of systems was performed and is negative for pertinent findings except as documented above in the HPI. - Constitutional Constitutional: no chills, no fever(s), no night sweats - EENT Eyes: no change in vision, no discharge, no pain, no photophobia Ears: no ear discharge, no ear pain, no tinnitus Nose, mouth and throat: no dysphagia, no nasal discharge, no neck pain, no sore throat - Cardiovascular Cardiovascular ROS IM: dyspnea, dyspnea on exertion, no chest pain, no diaphoresis, no lightheadedness, no palpitations, no syncope - Respiratory Respiratory: cough, dyspnea, dyspnea on exertion, wheezing, pain with cough, no pain on inspiration, no excessive phlegm production - Gastrointestinal Gastrointestinal: no abdominal pain, no diarrhea, no hematemesis, no hematochezia, no melena, no nausea, no vomiting - Musculoskeletal Musculoskeletal ROS IM: no numbness, no tingling - Integumentary Integumentary IM: no rash, no unusual bruising - Neurological Neurological ROS: no confusion, no convulsions, no focal weakness, no numbness, no tingling, no tremor(s) - Hematologic/Lymphatic Hematologic/Lymphatic: no easy bruising - Constitutional Vitals: Temp Pulse Resp BP Pulse Ox 0 F L 84 24 157/71 97 06/23/16 22:23 06/23/16 19:00 06/23/16 22:23 06/23/16 22:23 06/23/16 19:00 General appearance: Present: mild distress, A&O X 3, obese - Head Head exam: Present: atraumatic, normocephalic - Eye Eye exam: Present: PERRL, conjuntiva pink, sclera anicteric Pupils: Present: PERRL - Neck Neck exam general surgery: Present: supple, trachea midline. Absent: lymphadenopathy - Respiratory Respiratory exam: Present: decreased breath sounds, prolonged expiratory phase, respiratory distress, wheezes, tachypnea. Absent: accessory muscle use, rales, rhonchi - Cardiovascular Cardiovascular exam: Present: RRR, +S1, +S2, tachycardia. Absent: diastolic murmur, gallop, rubs, systolic murmur - GI/Abdominal GI/Abdominal exam: Present: normal bowel sounds, soft, no peritoneal signs. Absent: distended, tenderness - Extremities Exam Extremities exam: Present: warm, radial pulses palpable and symetrical. Absent : calf tenderness, cyanotic, pedal edema - Neurological Exam Neurological exam: Present: CN II-XII intact, oriented X3, no focal deficits. Absent: facial droop, speech deficit - Skin Skin exam: Present: dry, intact Internal Med - H&P Results - Labs CBC & Chem 7: 06/23/16 18:40 06/23/16 18:40 Labs: All Lab Results (24 Hours) 06/23/16 06/23/16 06/23/16 Range/Units 18:40 18:40 18:40 WBC 7.8 (4.3-11.1) K/mcL RBC 4.82 (4.19-5.50) M/mcL Hgb 14.6 (12.9-16.9) g/dL Hct 46.7 (37.5-50.1) % MCV 96.9 (83.0-100.0) fL MCH 30.3 (28.0-33.3) pg MCHC 31.3 L (31.6-35.5) g/dL RDW 12.2 (11.5-14.5) % Plt Count 192 (140-400) K/mcL MPV 9.1 L (9.4-12.4) fL Immature Gran % 1.3 (0-4) % Seg Neutrophils % 70.8 % Lymphocytes % 12.2 % Monocytes % 9.4 % Eosinophils % 5.8 % Basophils % 0.5 % Neutrophils # 5.5 (1.6-8.9) K/mcL Lymphocytes # 1.0 (0.6-4.6) K/mcL Monocytes # 0.7 (0.0-1.3) K/mcL Eosinophils # 0.5 (0.0-0.6) K/mcL Basophils # 0.0 (0.0-0.2) K/mcL Sodium 141 (136-145) mEq/L Potassium 4.2 (3.5-4.5) mEq/L Chloride 98 (98-109) mEq/L Carbon Dioxide 34 H (19-29) mEq/L BUN 16 (8-26) mg/dL Creatinine 1.26 H (0.72-1.25) mg/dL Est GFR ( Amer) > 60 (> 60) Est GFR (Non-Af Amer) 56 L (> 60) BUN/Creatinine Ratio 13 (6-26) Glucose 90 (70-99) mg/dL Calculated Osmolality 293 (280-300) Calcium 9.2 (8.6-10.8) mg/dL Troponin I 0.02 (0-0.03) ng/mL B-Natriuretic Peptide (0-100) pg/mL 06/23/16 Range/Units 18:40 WBC (4.3-11.1) K/mcL RBC (4.19-5.50) M/mcL Hgb (12.9-16.9) g/dL Hct (37.5-50.1) % MCV (83.0-100.0) fL MCH (28.0-33.3) pg MCHC (31.6-35.5) g/dL RDW (11.5-14.5) % Plt Count (140-400) K/mcL MPV (9.4-12.4) fL Immature Gran % (0-4) % Seg Neutrophils % % Lymphocytes % % Monocytes % % Eosinophils % % Basophils % % Neutrophils # (1.6-8.9) K/mcL Lymphocytes # (0.6-4.6) K/mcL Monocytes # (0.0-1.3) K/mcL Eosinophils # (0.0-0.6) K/mcL Basophils # (0.0-0.2) K/mcL Sodium (136-145) mEq/L Potassium (3.5-4.5) mEq/L Chloride (98-109) mEq/L Carbon Dioxide (19-29) mEq/L BUN (8-26) mg/dL Creatinine (0.72-1.25) mg/dL Est GFR ( Amer) (> 60) Est GFR (Non-Af Amer) (> 60) BUN/Creatinine Ratio (6-26) Glucose (70-99) mg/dL Calculated Osmolality (280-300) Calcium (8.6-10.8) mg/dL Troponin I (0-0.03) ng/mL B-Natriuretic Peptide 39 (0-100) pg/mL
[2016-06-23] MEDS ORDERED: Vancomycin 1,500 MG in D5% in Water 250 ML IVPB SCH (23:00)
[2016-06-24] MEDS ORDERED: Vancomycin 1,500 MG in D5% in Water 250 ML IVPB SCH
[2016-06-24] MEDS: Ipratropium/Albuterol Neb 3 ML IH SCH ×5 (00:29→23:12)
[2016-06-24] MEDS: Beclomethasone 80mcg MDI IH SCH ×3 (00:30→23:12)
[2016-06-24 00:56] LABS: ABG Base Excess 5.9 mEq/L (-2.0 to 3.0); ABG Oxygen Saturation 90 % (95-98); ABG PCO2 57 mmHg (35-45); ABG PH 7.37 pH Units (7.32-7.45); ABG PO2 61 mmHg (85-104); ABG TCO2 34.7 mEq/L (20-26); Blood Gas FiO2 36 %; Blood Gas Liter Flow 4 L/MIN
[2016-06-24] MEDS: MethylPREDNISolone 40 MG/ML VIAL IVP SCH ×3 (00:56→15:08)
[2016-06-24 04:15] LABS: Basophils % 0.3 %; Hematocrit 42.2 % (37.5-50.1); Hemoglobin 13.3 g/dL (12.9-16.9); Immature Granulocytes % 1.9 % (0-4); Lymphocytes # 0.4 K/mcL (0.6-4.6); Lymphocytes % 5.7 %; Mean Corpuscular HGB Conc 31.5 g/dL (31.6-35.5); Mean Corpuscular Hemoglobin 29.9 pg (28.0-33.3); Mean Corpuscular Volume 94.8 fL (83.0-100.0); Mean Platelet Volume 9.2 fL (9.4-12.4); Monocytes # 0.1 K/mcL (0.0-1.3); Neutrophils # 6.6 K/mcL (1.6-8.9); Platelet Count 193 K/mcL (140-400); Red Blood Count 4.45 M/mcL (4.19-5.50); Red Cell Distribution Width 12.3 % (11.5-14.5); Segmented Neutrophils % 91.1 %
[2016-06-24 04:37] LABS: BUN/Creatinine Ratio 18 (6-26); Blood Urea Nitrogen 22 mg/dL (8-26); Calcium 9.2 mg/dL (8.6-10.8); Carbon Dioxide 30 mEq/L (19-29); Chloride 97 mEq/L (98-109); Glucose 250 mg/dL (70-99); Osmolality,Calculated 298 (280-300); Potassium 4.5 mEq/L (3.5-4.5); Sodium 138 mEq/L (136-145); eGFR For African Americans > 60 (> 60); eGFR For Non-African Americans 58 (> 60)
[2016-06-24] MEDS ORDERED: Piperacillin/Tazobactam 3.375 GM in D5% in Water (Mini-Bag+) 100 ML IVPB SCH (06:00)
[2016-06-24] MEDS: *HR* Heparin 5,000 UNIT/ML VIAL SQ SCH ×2 (06:06→18:04)
[2016-06-24] MEDS: Aspirin Enteric Coated 81 MG Tablet PO SCH (09:29)
[2016-06-24] MEDS: Multivit/Ca/Min/Fe/FA 1 TAB TABLET PO SCH (09:29)
[2016-06-24] MEDS: Metoprolol XL (24 HR) Succ 50 MG TAB.ER.24H PO SCH (09:29)
[2016-06-24] MEDS: Gabapentin 300 MG CAPSULE PO SCH ×3 (09:29→20:45)
[2016-06-24] MEDS: Folic Acid 1 MG TABLET PO SCH (09:29)
--- NOTE | 2016-06-24 11:05 | Electrocardiograph Report ---
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
[2016-06-24] MEDS: GuaiFENesin/Codeine Oral Soln 5 ML UDC PO PRN ×2 (15:08→21:14)
--- NOTE | 2016-06-24 15:30 | Internal Med Progress Note ---
Date of Encounter: 06/24/16 Time of Encounter: 15:27 - Assessment and plan (1) Acute and chronic respiratory failure with hypoxia Current Visit: Yes Status: Acute Assessment and plan: Continue with therapy for acute exacerbation of COPD in patient with respiratory failure with hypoxia. Continue with oxygen therapy and BiPAP at night. Continue with nebulizer therapy. No evidence of pneumonia. However severe COPD DVT prophylaxis according to hospital protocol. (2) DVT prophylaxis Current Visit: Yes Status: Acute (3) COPD exacerbation Current Visit: No Status: Acute - Time Spent With Patient 25 - 35 minutes - Subjective Interval history: he was seen and examined on rounds. He is complaining of cough, shortness of breath. He still feels the same as he did last night. Denies fever. - Constitutional Vitals: Temp Pulse Resp BP Pulse Ox 98.1 F 102 18 152/74 90 L 06/24/16 15:23 06/24/16 15:23 06/24/16 15:23 06/24/16 15:23 06/24/16 15:23 General appearance: Present: mild distress, A&O X 3, obese Exam: Breathing with nasal cannula. - Head Head exam: Present: atraumatic, normocephalic - Eye Eye exam: Present: PERRL, conjuntiva pink, sclera anicteric Pupils: Present: PERRL - Neck Neck exam general surgery: Present: supple, trachea midline. Absent: lymphadenopathy - Respiratory Respiratory exam: Present: decreased breath sounds. Absent: accessory muscle use, rales, rhonchi, wheezes - Cardiovascular Cardiovascular exam: Present: RRR, +S1, +S2. Absent: diastolic murmur, gallop, rubs, systolic murmur - GI/Abdominal GI/Abdominal exam: Present: normal bowel sounds, soft, no peritoneal signs. Absent: distended, tenderness - Extremities Exam Extremities exam: Present: warm, radial pulses palpable and symetrical. Absent : calf tenderness, cyanotic, pedal edema - Neurological Exam Neurological exam: Present: CN II-XII intact, oriented X3, no focal deficits. Absent: pronater drift, facial droop, speech deficit - Skin Skin exam: Present: dry, intact Internal Medicine: Result - Labs CBC & Chem 7: 06/24/16 03:57 06/24/16 03:57 Labs: Short CBC 06/24/16 Range/Units 03:57 WBC 7.2 (4.3-11.1) K/mcL Hgb 13.3 (12.9-16.9) g/dL Hct 42.2 (37.5-50.1) % Plt Count 193 (140-400) K/mcL Neutrophils # 6.6 (1.6-8.9) K/mcL BMP 06/24/16 03:57 Sodium 138 Potassium 4.5 Chloride 97 L Carbon Dioxide 30 H BUN 22 Creatinine 1.23 Glucose 250 H Calcium 9.2 - ABG Interpretation ABG results: ABG ABG pH 7.37 pH Units (7.32-7.45) 06/24/16 00:45 ABG pCO2 57 mmHg (35-45) H 06/24/16 00:45 ABG pO2 61 mmHg (85-104) L 06/24/16 00:45 ABG O2 Saturation 90 % (95-98) L 06/24/16 00:45 - Impressions Impressions Chest CT 06/24/16 08:30 IMPRESSION: 1. Bibasilar atelectasis. No superimposed acute pulmonary finding to account for patient's shortness of breath. 2. Severe emphysema. D/ / 06/24/2016 09:18:14 Uriah Griffiths MD / [email or web address] Interpreting Provider: Uriah Griffiths MD Consult Discharge Plan - Plan Referrals: Manjit To Jr, MD [Primary Care Provider] - 06/30/16 10:00 am
[2016-06-24] MEDS ORDERED: Levofloxacin 750 MG/150 ML 750 MG/150 ML BAG IVPB SCH (21:00)
[2016-06-25] MEDS: MethylPREDNISolone 40 MG/ML VIAL IVP SCH ×3 (00:08→21:13)
[2016-06-25] MEDS: Melatonin 3 MG TABLET PO PRN (01:53)
[2016-06-25] MEDS: Ipratropium/Albuterol Neb 3 ML IH SCH ×4 (04:22→22:29)
[2016-06-25 04:51] LABS: Basophils % 0.2 %; Hematocrit 41.8 % (37.5-50.1); Hemoglobin 12.8 g/dL (12.9-16.9); Immature Granulocytes % 1.9 % (0-4); Lymphocytes # 0.6 K/mcL (0.6-4.6); Lymphocytes % 3.7 %; Mean Corpuscular HGB Conc 30.6 g/dL (31.6-35.5); Mean Corpuscular Volume 97.9 fL (83.0-100.0); Monocytes # 0.7 K/mcL (0.0-1.3); Monocytes % 4.7 %; Neutrophils # 13.9 K/mcL (1.6-8.9); Platelet Count 221 K/mcL (140-400); Red Blood Count 4.27 M/mcL (4.19-5.50); Red Cell Distribution Width 12.6 % (11.5-14.5); Segmented Neutrophils % 89.5 %
[2016-06-25 05:13] LABS: BUN/Creatinine Ratio 28 (6-26); Blood Urea Nitrogen 29 mg/dL (8-26); Calcium 8.8 mg/dL (8.6-10.8); Carbon Dioxide 28 mEq/L (19-29); Chloride 101 mEq/L (98-109); Glucose 165 mg/dL (70-99); Osmolality,Calculated 294 (280-300); Sodium 137 mEq/L (136-145); eGFR For African Americans > 60 (> 60); eGFR For Non-African Americans > 60 (> 60)
[2016-06-25] MEDS: *HR* Heparin 5,000 UNIT/ML VIAL SQ SCH ×2 (06:36→18:37)
[2016-06-25] MEDS: Multivit/Ca/Min/Fe/FA 1 TAB TABLET PO SCH (08:04)
[2016-06-25] MEDS: Aspirin Enteric Coated 81 MG Tablet PO SCH (08:04)
[2016-06-25] MEDS: Folic Acid 1 MG TABLET PO SCH (08:05)
[2016-06-25] MEDS: Gabapentin 300 MG CAPSULE PO SCH ×3 (08:05→21:13)
[2016-06-25] MEDS: Metoprolol XL (24 HR) Succ 50 MG TAB.ER.24H PO SCH (08:05)
[2016-06-25] MEDS: GuaiFENesin/Codeine Oral Soln 5 ML UDC PO PRN (08:10)
[2016-06-25] MEDS: Beclomethasone 80mcg MDI IH SCH ×2 (11:34→22:29)
--- NOTE | 2016-06-25 14:41 | Internal Med Progress Note ---
Date of Encounter: 06/25/16 Time of Encounter: 14:39 - Assessment and plan (1) Acute and chronic respiratory failure with hypoxia Current Visit: Yes Status: Acute Assessment and plan: Continue with therapy for acute exacerbation of COPD in patient with respiratory failure with hypoxia. Continue with oxygen therapy and BiPAP at night. Continue with nebulizer therapy. No evidence of pneumonia. However severe COPD , patient is at high risk for readmissions. Leukocytosis noted, however is likely secondary to the use of systemic steroids. Will taper down steroids today. Continue monitoring. High risk of respiratory failure. DVT prophylaxis according to hospital protocol. (2) DVT prophylaxis Current Visit: Yes Status: Acute (3) COPD exacerbation Current Visit: No Status: Acute - Time Spent With Patient 25 - 35 minutes - Subjective Interval history: he was seen and examined on rounds. He is complaining of cough, shortness of breath. Denies fever. - Constitutional Vitals: Temp Pulse Resp BP Pulse Ox 97.6 F 83 16 125/75 83 L 06/25/16 06:30 06/25/16 11:00 06/25/16 11:37 06/25/16 11:37 06/25/16 11:37 General appearance: Present: mild distress, A&O X 3, obese - Head Head exam: Present: atraumatic, normocephalic - Eye Eye exam: Present: PERRL, conjuntiva pink, sclera anicteric Pupils: Present: PERRL - Neck Neck exam general surgery: Present: supple, trachea midline. Absent: lymphadenopathy - Respiratory Respiratory exam: Present: decreased breath sounds. Absent: accessory muscle use, rales, rhonchi, wheezes - Cardiovascular Cardiovascular exam: Present: RRR, +S1, +S2. Absent: diastolic murmur, gallop, rubs, systolic murmur - GI/Abdominal GI/Abdominal exam: Present: normal bowel sounds, soft, no peritoneal signs. Absent: distended, tenderness - Extremities Exam Extremities exam: Present: warm, radial pulses palpable and symetrical. Absent : calf tenderness, cyanotic, pedal edema - Neurological Exam Neurological exam: Present: CN II-XII intact, oriented X3, no focal deficits. Absent: pronater drift, facial droop, speech deficit - Skin Skin exam: Present: dry, intact Internal Medicine: Result - Labs CBC & Chem 7: 06/25/16 04:19 06/25/16 04:19 Labs: Short CBC 06/25/16 Range/Units 04:19 WBC 15.5 H D (4.3-11.1) K/mcL Hgb 12.8 L (12.9-16.9) g/dL Hct 41.8 (37.5-50.1) % Plt Count 221 (140-400) K/mcL Neutrophils # 13.9 H (1.6-8.9) K/mcL BMP 06/25/16 04:19 Sodium 137 Potassium 5.0 H Chloride 101 Carbon Dioxide 28 BUN 29 H Creatinine 1.05 Glucose 165 H Calcium 8.8 - ABG Interpretation ABG results: ABG ABG pH 7.37 pH Units (7.32-7.45) 06/24/16 00:45 ABG pCO2 57 mmHg (35-45) H 06/24/16 00:45 ABG pO2 61 mmHg (85-104) L 06/24/16 00:45 ABG O2 Saturation 90 % (95-98) L 06/24/16 00:45 - VTE Documentation of Mechanical Device: Graduated compression elastic hosiery Consult Discharge Plan - Plan Referrals: Manjit To Jr, MD [Primary Care Provider] - 06/30/16 10:00 am
--- NOTE | 2016-06-25 16:06 | Electrocardiograph Report ---
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
[2016-06-25] MEDS: Lactulose Oral Soln 20 GM/30 ML UDC PO SCH ×2 (16:07→21:13)
[2016-06-25] MEDS: Albuterol 2.5 MG/3 ML NEBULIZER IH PRN (20:32)
[2016-06-26] MEDS: Melatonin 3 MG TABLET PO PRN (00:05)
[2016-06-26] MEDS: Ipratropium/Albuterol Neb 3 ML IH SCH ×4 (04:27→22:46)
[2016-06-26 05:39] LABS: Hematocrit 45.7 % (37.5-50.1); Hemoglobin 13.8 g/dL (12.9-16.9); Mean Corpuscular HGB Conc 30.2 g/dL (31.6-35.5); Mean Corpuscular Hemoglobin 29.5 pg (28.0-33.3); Mean Corpuscular Volume 97.6 fL (83.0-100.0); Mean Platelet Volume 8.9 fL (9.4-12.4); Platelet Count 264 K/mcL (140-400); Red Blood Count 4.68 M/mcL (4.19-5.50); Red Cell Distribution Width 12.6 % (11.5-14.5)
[2016-06-26 05:53] LABS: BUN/Creatinine Ratio 24 (6-26); Blood Urea Nitrogen 26 mg/dL (8-26); Calcium 8.8 mg/dL (8.6-10.8); Carbon Dioxide 29 mEq/L (19-29); Chloride 101 mEq/L (98-109); Glucose 163 mg/dL (70-99); Osmolality,Calculated 296 (280-300); Potassium 4.5 mEq/L (3.5-4.5); Sodium 139 mEq/L (136-145); eGFR For African Americans > 60 (> 60); eGFR For Non-African Americans > 60 (> 60)
[2016-06-26] MEDS: *HR* Heparin 5,000 UNIT/ML VIAL SQ SCH ×2 (06:19→18:15)
[2016-06-26] MEDS: MethylPREDNISolone 40 MG/ML VIAL IVP SCH ×3 (06:50→21:04)
[2016-06-26 07:02] LABS: Lymphocytes # 2.3 K/mcL (0.6-4.6); Monocytes # 0.4 K/mcL (0.0-1.3); Neutrophils # 16.3 K/mcL (1.6-8.9); Platelet Estimate Normal (Normal)
[2016-06-26] MEDS: Folic Acid 1 MG TABLET PO SCH (07:42)
[2016-06-26] MEDS: Lactulose Oral Soln 20 GM/30 ML UDC PO SCH ×2 (07:42→21:04)
[2016-06-26] MEDS: Metoprolol XL (24 HR) Succ 50 MG TAB.ER.24H PO SCH (07:42)
[2016-06-26] MEDS: Gabapentin 300 MG CAPSULE PO SCH ×3 (07:42→21:05)
[2016-06-26] MEDS: Multivit/Ca/Min/Fe/FA 1 TAB TABLET PO SCH (07:42)
[2016-06-26] MEDS: Aspirin Enteric Coated 81 MG Tablet PO SCH (07:42)
[2016-06-26] MEDS: Saline Nasal Spray 44 ML BOTTLE NS PRN (12:01)
[2016-06-26] MEDS: Beclomethasone 80mcg MDI IH SCH ×2 (12:10→22:46)
--- NOTE | 2016-06-26 16:17 | Internal Med Progress Note ---
Date of Encounter: 06/26/16 Time of Encounter: 16:16 - Assessment and plan (1) Acute and chronic respiratory failure with hypoxia Current Visit: Yes Status: Acute Assessment and plan: Continue with therapy for acute exacerbation of COPD in patient with respiratory failure with hypoxia. Continue with oxygen therapy and BiPAP at night. Continue with nebulizer therapy. No evidence of pneumonia. However severe COPD , patient is at high risk for readmissions. Leukocytosis noted, however is likely secondary to the use of systemic steroids. Continue monitoring. High risk of respiratory failure. DVT prophylaxis according to hospital protocol. Discussed with patient and his in detail. (2) DVT prophylaxis Current Visit: Yes Status: Acute (3) COPD exacerbation Current Visit: No Status: Acute - Time Spent With Patient 25 - 35 minutes - Subjective Interval history: he was seen and examined on rounds. He is complaining of cough, shortness of breath. Denies fever. His was at bedside. - Constitutional Vitals: Temp Pulse Resp BP Pulse Ox 98 F 90 22 140/83 91 L 06/26/16 10:36 06/26/16 10:36 06/26/16 12:09 06/26/16 10:36 06/26/16 12:09 General appearance: Present: mild distress, A&O X 3, obese - Head Head exam: Present: atraumatic, normocephalic - Eye Eye exam: Present: PERRL, conjuntiva pink, sclera anicteric Pupils: Present: PERRL - Neck Neck exam general surgery: Present: supple, trachea midline. Absent: lymphadenopathy - Respiratory Respiratory exam: Present: decreased breath sounds. Absent: accessory muscle use, rales, rhonchi, wheezes - Cardiovascular Cardiovascular exam: Present: RRR, +S1, +S2. Absent: diastolic murmur, gallop, rubs, systolic murmur - GI/Abdominal GI/Abdominal exam: Present: normal bowel sounds, soft, no peritoneal signs. Absent: distended, tenderness - Extremities Exam Extremities exam: Present: warm, radial pulses palpable and symetrical. Absent : calf tenderness, cyanotic, pedal edema - Neurological Exam Neurological exam: Present: CN II-XII intact, oriented X3, no focal deficits. Absent: pronater drift, facial droop, speech deficit - Skin Skin exam: Present: dry, intact Internal Medicine: Result - Labs CBC & Chem 7: 06/26/16 04:57 06/26/16 04:57 Labs: Short CBC 06/26/16 Range/Units 04:57 WBC 18.9 H (4.3-11.1) K/mcL Hgb 13.8 (12.9-16.9) g/dL Hct 45.7 (37.5-50.1) % Plt Count 264 (140-400) K/mcL Neutrophils # 16.3 H (1.6-8.9) K/mcL BMP 06/26/16 04:57 Sodium 139 Potassium 4.5 Chloride 101 Carbon Dioxide 29 BUN 26 Creatinine 1.09 Glucose 163 H Calcium 8.8 - ABG Interpretation ABG results: ABG ABG pH 7.37 pH Units (7.32-7.45) 06/24/16 00:45 ABG pCO2 57 mmHg (35-45) H 06/24/16 00:45 ABG pO2 61 mmHg (85-104) L 06/24/16 00:45 ABG O2 Saturation 90 % (95-98) L 06/24/16 00:45 - Impressions Impressions Chest CT 06/24/16 08:30 IMPRESSION: 1. Bibasilar atelectasis. No superimposed acute pulmonary finding to account for patient's shortness of breath. 2. Severe emphysema. D/ / 06/24/2016 09:18:14 Uriah Griffiths MD / [email or web address] Interpreting Provider: Uriah Griffiths MD - VTE Documentation of Mechanical Device: Graduated compression elastic hosiery Consult Discharge Plan - Plan Referrals: Manjit To Jr, MD [Primary Care Provider] - 06/30/16 10:00 am
[2016-06-26] MEDS: Levofloxacin 750 MG/150 ML 750 MG/150 ML BAG IVPB SCH (21:04)
[2016-06-27] MEDS: Ipratropium/Albuterol Neb 3 ML IH SCH ×4 (04:42→22:18)
[2016-06-27 07:03] LABS: Hematocrit 44.3 % (37.5-50.1); Hemoglobin 13.8 g/dL (12.9-16.9); Mean Corpuscular HGB Conc 31.2 g/dL (31.6-35.5); Mean Corpuscular Hemoglobin 30.9 pg (28.0-33.3); Mean Corpuscular Volume 99.1 fL (83.0-100.0); Mean Platelet Volume 9.1 fL (9.4-12.4); Platelet Count 234 K/mcL (140-400); Red Blood Count 4.47 M/mcL (4.19-5.50); Red Cell Distribution Width 12.7 % (11.5-14.5)
[2016-06-27 07:18] LABS: BUN/Creatinine Ratio 21 (6-26); Blood Urea Nitrogen 23 mg/dL (8-26); Calcium 8.8 mg/dL (8.6-10.8); Carbon Dioxide 31 mEq/L (19-29); Chloride 98 mEq/L (98-109); Glucose 218 mg/dL (70-99); Osmolality,Calculated 302 (280-300); Potassium 4.9 mEq/L (3.5-4.5); Sodium 141 mEq/L (136-145); eGFR For African Americans > 60 (> 60); eGFR For Non-African Americans > 60 (> 60)
[2016-06-27 07:34] LABS: Lymphocytes # 2.5 K/mcL (0.6-4.6); Monocytes # 0.4 K/mcL (0.0-1.3); Platelet Estimate Normal (Normal)
[2016-06-27] MEDS: Folic Acid 1 MG TABLET PO SCH (08:07)
[2016-06-27] MEDS: Metoprolol XL (24 HR) Succ 50 MG TAB.ER.24H PO SCH (08:07)
[2016-06-27] MEDS: Aspirin Enteric Coated 81 MG Tablet PO SCH (08:07)
[2016-06-27] MEDS: Gabapentin 300 MG CAPSULE PO SCH ×3 (08:07→21:42)
[2016-06-27] MEDS: Multivit/Ca/Min/Fe/FA 1 TAB TABLET PO SCH (08:07)
[2016-06-27] MEDS: *HR* Heparin 5,000 UNIT/ML VIAL SQ SCH ×2 (08:08→21:42)
[2016-06-27] MEDS: Lactulose Oral Soln 20 GM/30 ML UDC PO SCH ×2 (08:08→21:42)
[2016-06-27] MEDS: MethylPREDNISolone 40 MG/ML VIAL IVP SCH (08:08)
[2016-06-27] MEDS: Saline Nasal Spray 44 ML BOTTLE NS PRN (09:36)
[2016-06-27] MEDS: Beclomethasone 80mcg MDI IH SCH ×2 (11:00→22:18)
--- NOTE | 2016-06-27 13:10 | Internal Med Progress Note ---
Date of Encounter: 06/27/16 Time of Encounter: 13:09 - Assessment and plan (1) Acute and chronic respiratory failure with hypoxia Current Visit: Yes Status: Acute Assessment and plan: Continue with therapy for acute exacerbation of COPD in patient with respiratory failure with hypoxia. Continue with oxygen therapy and BiPAP at night. Continue with nebulizer therapy. No evidence of pneumonia. However severe COPD , patient is at high risk for readmissions. Leukocytosis noted, however is likely secondary to the use of systemic steroids. Continue monitoring. High risk of respiratory failure. DVT prophylaxis according to hospital protocol. Discussed with patient in detail. Possible discharge tomorrow if stable. (2) DVT prophylaxis Current Visit: Yes Status: Acute (3) COPD exacerbation Current Visit: No Status: Acute - Subjective Interval history: he was seen and examined on rounds. He is complaining of cough, shortness of breath. Denies fever. - Constitutional Vitals: Temp Pulse Resp BP Pulse Ox 98.1 F 84 16 145/81 91 L 06/27/16 10:29 06/27/16 10:06/27/16 11:02 06/27/16 10:06/27/16 11:02 General appearance: Present: mild distress, A&O X 3, obese - Head Head exam: Present: atraumatic, normocephalic - Eye Eye exam: Present: PERRL, conjuntiva pink, sclera anicteric Pupils: Present: PERRL - Neck Neck exam general surgery: Present: supple, trachea midline. Absent: lymphadenopathy - Respiratory Respiratory exam: Present: decreased breath sounds. Absent: accessory muscle use, rales, rhonchi, wheezes - Cardiovascular Cardiovascular exam: Present: RRR, +S1, +S2. Absent: diastolic murmur, gallop, rubs, systolic murmur - GI/Abdominal GI/Abdominal exam: Present: normal bowel sounds, soft, no peritoneal signs. Absent: distended, tenderness - Extremities Exam Extremities exam: Present: warm, radial pulses palpable and symetrical. Absent : calf tenderness, cyanotic, pedal edema - Neurological Exam Neurological exam: Present: CN II-XII intact, oriented X3, no focal deficits. Absent: pronater drift, facial droop, speech deficit - Skin Skin exam: Present: dry, intact Internal Medicine: Result - Labs CBC & Chem 7: 06/27/16 06:24 06/27/16 06:24 Labs: Short CBC 06/27/16 Range/Units 06:24 WBC 17.9 H (4.3-11.1) K/mcL Hgb 13.8 (12.9-16.9) g/dL Hct 44.3 (37.5-50.1) % Plt Count 234 (140-400) K/mcL Neutrophils # 15.0 H (1.6-8.9) K/mcL BMP 06/27/16 06:24 Sodium 141 Potassium 4.9 H Chloride 98 Carbon Dioxide 31 H BUN 23 Creatinine 1.10 Glucose 218 H Calcium 8.8 - ABG Interpretation ABG results: ABG ABG pH 7.37 pH Units (7.32-7.45) 06/24/16 00:45 ABG pCO2 57 mmHg (35-45) H 06/24/16 00:45 ABG pO2 61 mmHg (85-104) L 06/24/16 00:45 ABG O2 Saturation 90 % (95-98) L 06/24/16 00:45 - VTE Documentation of Mechanical Device: Graduated compression elastic hosiery Consult Discharge Plan - Plan Referrals: Manjit To Jr, MD [Primary Care Provider] - 06/30/16 10:00 am
[2016-06-28] MEDS: Ipratropium/Albuterol Neb 3 ML IH SCH ×4 (05:07→23:02)
[2016-06-28] MEDS: *HR* Heparin 5,000 UNIT/ML VIAL SQ SCH ×2 (06:00→08:55)
[2016-06-28 06:13] LABS: Hematocrit 46.6 % (37.5-50.1); Mean Platelet Volume 8.9 fL (9.4-12.4); Platelet Count 239 K/mcL (140-400); Red Blood Count 4.66 M/mcL (4.19-5.50); Red Cell Distribution Width 13.1 % (11.5-14.5)
[2016-06-28 06:25] LABS: BUN/Creatinine Ratio 27 (6-26); Blood Urea Nitrogen 28 mg/dL (8-26); Calcium 9.1 mg/dL (8.6-10.8); Carbon Dioxide 31 mEq/L (19-29); Chloride 100 mEq/L (98-109); Glucose 109 mg/dL (70-99); Osmolality,Calculated 300 (280-300); Potassium 4.6 mEq/L (3.5-4.5); Sodium 142 mEq/L (136-145); eGFR For African Americans > 60 (> 60); eGFR For Non-African Americans > 60 (> 60)
[2016-06-28 06:37] LABS: Lymphocytes # 5.1 K/mcL (0.6-4.6); Monocytes # 1.2 K/mcL (0.0-1.3); Neutrophils # 13.4 K/mcL (1.6-8.9)
[2016-06-28 06:38] LABS: Platelet Estimate Normal (Normal)
[2016-06-28 06:39] LABS: Hypersegmented Neutrophils Present (Not Present); Reactive Lymphocytes Present (Not Present)
[2016-06-28] MEDS: Metoprolol XL (24 HR) Succ 50 MG TAB.ER.24H PO SCH (08:50)
[2016-06-28] MEDS: Aspirin Enteric Coated 81 MG Tablet PO SCH (08:51)
[2016-06-28] MEDS: Multivit/Ca/Min/Fe/FA 1 TAB TABLET PO SCH (08:52)
[2016-06-28] MEDS: Gabapentin 300 MG CAPSULE PO SCH ×3 (08:52→23:51)
[2016-06-28] MEDS: Lactulose Oral Soln 20 GM/30 ML UDC PO SCH ×2 (08:53→23:51)
[2016-06-28] MEDS: Folic Acid 1 MG TABLET PO SCH (08:54)
[2016-06-28] MEDS ORDERED: FLU VACC QS2016-17 36MOS UP/PF 0.5 ML SYRINGE IM ONE (09:08)
[2016-06-28] MEDS: Beclomethasone 80mcg MDI IH SCH ×2 (10:22→23:02)
--- NOTE | 2016-06-28 12:07 | Internal Med Progress Note ---
<Stan Mejia - Last Filed: 06/28/16 13:38> Date of Encounter: 06/28/16 Time of Encounter: 12:07 - Assessment and plan (1) Acute on chronic respiratory failure with hypoxia and hypercapnia Current Visit: Yes Status: Acute Assessment and plan: Likely 2/2 AE of COPD, added back IV steroid since he is not doing well, still requiring lots of high flow oxygen, will obtain chest x-ray today, bipap prn, he is DNRCCA/DNI, possible end stage COPD, will consult palliative for goal of care. (2) COPD exacerbation Current Visit: No Status: Acute Assessment and plan: Chronic bronchitis, sputum production on/off, leukocytosis worsened, r/o newly developing pneumonia, will obtain 2 views chest x-ray, will add back IV steroid , con't Qvar, Duoneb ATC, oxygen support, IV abx, and bipap prn. (3) Leukocytosis Current Visit: Yes Status: Acute Assessment and plan: Worsened, due to infection vs steroid, will obtain chest x-ray today, bld culture negative x2, recheck in AM. Qualifiers: Qualified Code(s): D72.829 - Elevated white blood cell count, unspecified (4) DVT prophylaxis Current Visit: Yes Status: Acute Assessment and plan: Heparin SQ BID. - Subjective Interval history: Pt seen and examined, still requiring high flow oxygen level, his breathing not back to baseline yet, chronic bronchitis on and off. - Constitutional Vitals: Temp Pulse Resp BP Pulse Ox 97.8 F 92 18 135/69 93 L 06/28/16 11:23 06/28/16 11:23 06/28/16 11:23 06/28/16 11:23 06/28/16 11:23 General appearance: Present: cooperative, mild distress, A&O X 3, obese, answers questions appropriately - Head Head exam: Present: atraumatic, normocephalic - Eye Eye exam: Present: PERRL, conjuntiva pink, sclera anicteric Pupils: Present: PERRL - Neck Neck exam general surgery: Present: supple, trachea midline. Absent: lymphadenopathy - Respiratory Respiratory exam: Present: decreased breath sounds (very diminished breath sounds diffusely b/l). Absent: accessory muscle use, rales, rhonchi, wheezes - Cardiovascular Cardiovascular exam: Present: RRR, +S1, +S2. Absent: diastolic murmur, gallop, rubs, systolic murmur - GI/Abdominal GI/Abdominal exam: Present: normal bowel sounds, soft, no peritoneal signs. Absent: distended, tenderness - Extremities Exam Extremities exam: Present: warm, radial pulses palpable and symetrical. Absent : calf tenderness, cyanotic, pedal edema - Neurological Exam Neurological exam: Present: CN II-XII intact, oriented X3, no focal deficits. Absent: pronater drift, facial droop, speech deficit - Skin Skin exam: Present: dry, intact Internal Medicine: Result - Labs CBC & Chem 7: 06/28/16 05:46 06/28/16 05:46 Labs: Short CBC 06/28/16 Range/Units 05:46 WBC 19.7 H (4.3-11.1) K/mcL Hgb 14.0 (12.9-16.9) g/dL Hct 46.6 (37.5-50.1) % Plt Count 239 (140-400) K/mcL Neutrophils # 13.4 H (1.6-8.9) K/mcL BMP 06/28/16 05:46 Sodium 142 Potassium 4.6 H Chloride 100 Carbon Dioxide 31 H BUN 28 H Creatinine 1.02 Glucose 109 H Calcium 9.1 - ABG Interpretation ABG results: ABG ABG pH 7.37 pH Units (7.32-7.45) 06/24/16 00:45 ABG pCO2 57 mmHg (35-45) H 06/24/16 00:45 ABG pO2 61 mmHg (85-104) L 06/24/16 00:45 ABG O2 Saturation 90 % (95-98) L 06/24/16 00:45 - VTE Documentation of Mechanical Device: Graduated compression elastic hosiery Consult Discharge Plan - Plan Instructions: Chronic Obstructive Pulmonary Disease (DC), Pneumonia (DC) Referrals: Manjit To Jr, MD [Primary Care Provider] - 06/30/16 10:00 am <Vaughn Fu - Last Filed: 06/28/16 16:55> Date of Encounter: 06/28/16 - Assessment and plan (1) Acute and chronic respiratory failure with hypoxia Current Visit: Yes Status: Acute (2) DVT prophylaxis Current Visit: Yes Status: Acute (3) COPD exacerbation Current Visit: No Status: Acute - Constitutional Vitals: Temp Pulse Resp BP Pulse Ox 98.5 F 106 20 151/72 97 06/28/16 16:01 06/28/16 16:01 06/28/16 16:01 06/28/16 16:01 06/28/16 16:01 Internal Medicine: Result - Labs CBC & Chem 7: 06/28/16 05:46 06/28/16 05:46 Labs: Short CBC 06/28/16 Range/Units 05:46 WBC 19.7 H (4.3-11.1) K/mcL Hgb 14.0 (12.9-16.9) g/dL Hct 46.6 (37.5-50.1) % Plt Count 239 (140-400) K/mcL Neutrophils # 13.4 H (1.6-8.9) K/mcL BMP 06/28/16 05:46 Sodium 142 Potassium 4.6 H Chloride 100 Carbon Dioxide 31 H BUN 28 H Creatinine 1.02 Glucose 109 H Calcium 9.1 - ABG Interpretation ABG results: ABG ABG pH 7.37 pH Units (7.32-7.45) 06/24/16 00:45 ABG pCO2 57 mmHg (35-45) H 06/24/16 00:45 ABG pO2 61 mmHg (85-104) L 06/24/16 00:45 ABG O2 Saturation 90 % (95-98) L 06/24/16 00:45 - Impressions Impressions Chest X-Ray 06/28/16 12:04 IMPRESSION: Chronic COPD. Improved atelectatic and/or consolidative changes right lower lobe. No evidence of pleural disease. D/ / 06/28/2016 15:40:19 Mariely Harper MD / [email or web address] Interpreting Provider: Mariely Harper MD - Attending Attestation I agree with the physical examination findings, assessment and plan documented by the resident Dr. Stan Mejia. I examined the patient independently. Patient with severe COPD and chronic respiratory failure with hypoxemia. He is afebrile, has leukocytosis, however, this is likely secondary to the use of steroids. No evidence of pneumonia, he will continue with long-term oxygen therapy along with BiPAP at night. Will resume steroids. Palliative care consult requested. Plan of care was discussed with the patient, he expressed understanding.
[2016-06-28] MEDS: MethylPREDNISolone 40 MG/ML VIAL IVP SCH ×3 (12:54→23:51)
[2016-06-28] MEDS: Saline Nasal Spray 44 ML BOTTLE NS PRN (14:40)
--- NOTE | 2016-06-28 15:57 | Palliative - Consult Note ---
<Kevin Salmeron - Last Filed: 06/28/16 16:59> Date of Encounter: 06/28/16 Time of Encounter: 15:56 - Assessment and Plan (1) Goals of care, counseling/discussion Current Visit: Yes Status: Acute Assessment and plan: Pt. seen and had discussion on goals of care. He was recently admitted and discharged for COPD exacerbation. Pt. is alert and oriented. He appears to have full decision making capacity. He understands his CODE STATUS of DNR-CCA-DNI. Has good understanding of his poor lung function and increased need for supplemental O2. Pt. wishes to return home so that he can continue to care for his and grandson. On his prior admission, upon discharge he went to [facility] for rehab which helped him immensely. He breathes much better with 7L high flow O2. At home his maximum O2 is 4L, which he states is not enough. If possible, he would benefit from high flow home O2 therapy. Hospice was discussed and it is currently under consideration by patient and family. Denies any nausea, diarrhea, constipation, or pain at this time. (2) COPD exacerbation Current Visit: No Status: Acute Assessment and plan: Severe COPD Currently 86% on 7L high flow O2 On IV Abx, breathing treatments, IV steroids care per primary team. Palliative-CN HPI - Data of Consult Patient: known to practice within the last 3 years Consult date: 06/28/16 Requesting Physician: Vaughn Fu Primary Care Provider: Manjit To Jr, MD - Consult Narrative Palliative Care/Comfort Measures: Palliative care History of present illness: Mr. Holland is a 71 year old male with history of severe COPD. Palliative care was consulted for goals of care. He was seen by palliative care during his last hospital stay. He was recently discharged for COPD exacerbation on June 01 2016 and admitted [facility] swing bed for ongoing therapy prior to returning to independent living at home. He was discharged from [facility] home on 04/15. Pt. states that he was breathing better during his stay at [facility], where he was able to ambulate without becoming too short of breath, but his breathing worsened at home shortly after returning. He was readmitted to [facility] for his COPD on 06/23/16. At home he is on 4L O2, but he states this is not enough. At the bedside he is on 7L high flow O2. He denies any pain, nausea, constipation , or diarrhea at this time. CC: Vaughn Fu Past Med Surg Social Fam HX - Past Medical History Medical history: COPD, coronary artery disease, hyperlipidemia, hypertension, myocardial infarction Psychiatric history: no psych history - Past Surgical History Surgical History: non-contributory, other - Social History Smoking Status: Former smoker Smokeless Tobacco Status: No Alcohol use: none Drug use: none - Family History Mother Living Status: Age at : 70 Cause of : PE Father Living Status: Cause of : emphysema Hx Family Respiratory Disorders: Yes Medications and Allergies Aspirin [Lo-Dose Aspirin EC] 162 mg PO DAILY 05/29/16 [History] Folic Acid 0.8 mg PO DAILY 05/29/16 [History] Multivitamin [Multi-Day Vitamins] 1 tab PO DAILY 05/29/16 [History] Gabapentin [Neurontin] 300 mg PO TID #90 capsule 06/02/16 [Rx] GuaiFENesin ER [Mucinex] 600 mg PO BID #60 tbbp.12hr 06/02/16 [Rx] Albuterol Neb [Proventil Neb] 2.5 mg IH Q4H PRN #30 inhsol 06/09/16 [Rx] Alprazolam [Xanax 0.5 MG Tablet] 0.5 mg PO Q6HR PRN #12 tablet 06/09/16 [Rx] Beclomethasone Diprop 40mcg [QVAR 40 mcg] 1 puff IH BID 30 Days 06/09/16 [Rx] Ibuprofen [Motrin] 800 mg PO TID PRN #0 06/09/16 [Rx] Metoprolol XL (24 HR) Succ [Toprol Xl] 50 mg PO DAILY #30 tab.er.24h 06/09/16 [ Rx] Simvastatin [Zocor] 40 mg PO DAILY #30 tablet 06/09/16 [Rx] Tiotropium [Spiriva] 18 mcg IH DAILYR 30 Days 06/09/16 [Rx] Allergies No Known Allergies Allergy (Verified 06/23/16 18:35) - Constitutional Constitutional ROS PAL: fatigue - Cardiovascular Cardiovascular ROS: no chest pain - Respiratory Respiratory: cough, dyspnea, dyspnea on exertion, wheezing, chest congestion - Gastrointestinal Gastrointestinal: no abdominal pain, no change in bowel habits, no constipation , no diarrhea Palliative Care-Exam - Constitutional Vitals: Temp Pulse Resp BP Pulse Ox 97.8 F 92 18 135/69 93 L 06/28/16 11:23 06/28/16 11:23 06/28/16 11:23 06/28/16 11:23 06/28/16 11:23 General appearance: Present: cooperative, disheveled, mild distress, obese - Head Head Exam: Present: atraumatic - Eye Eye exam: Present: EOMI, PERRL - Respiratory Respiratory exam: Present: decreased breath sounds, respiratory distress, rhonchi, wheezes. Absent: CTAB - Cardiovascular Cardiovascular exam: Present: RRR - GI/Abdominal Exam GI/Abdominal exam: Present: normal bowel sounds - Extremities Exam Extremities exam: Present: pedal edema - Neurological Exam Neurological exam: Present: alert, oriented X3 Internal Medicine - CN: Reslt - Labs CBC & Chem 7: 06/28/16 05:46 06/28/16 05:46 Labs: Short CBC 06/28/16 Range/Units 05:46 WBC 19.7 H (4.3-11.1) K/mcL Hgb 14.0 (12.9-16.9) g/dL Hct 46.6 (37.5-50.1) % Plt Count 239 (140-400) K/mcL Neutrophils # 13.4 H (1.6-8.9) K/mcL BMP 06/28/16 05:46 Sodium 142 Potassium 4.6 H Chloride 100 Carbon Dioxide 31 H BUN 28 H Creatinine 1.02 Glucose 109 H Calcium 9.1 - ABG Interpretation ABG results: ABG ABG pH 7.37 pH Units (7.32-7.45) 06/24/16 00:45 ABG pCO2 57 mmHg (35-45) H 06/24/16 00:45 ABG pO2 61 mmHg (85-104) L 06/24/16 00:45 ABG O2 Saturation 90 % (95-98) L 06/24/16 00:45 - Impressions Impressions Chest X-Ray 06/28/16 12:04 IMPRESSION: Chronic COPD. Improved atelectatic and/or consolidative changes right lower lobe. No evidence of pleural disease. D/ / 06/28/2016 15:40:19 Mariely Harper MD / lenny Interpreting Provider: Mariely Harper MD Consult Discharge Plan - Plan Instructions: Chronic Obstructive Pulmonary Disease (DC), Pneumonia (DC) Referrals: Manjit To Jr, MD [Primary Care Provider] - 06/30/16 10:00 am Palliative Quality Palliative Quality: Screen for Code Status: Yes (DNR-CCA-DNI), Screen for Goals of Care: Yes, Screen for Pain: Yes, If Pain Regimen Started, Initiate Bowel Regimen: NA, Screen for Nausea/Vomitting: Yes Code Status: DNR-CCA-DNI <Ignacio Maciel - Last Filed: 06/28/16 17:12> Date of Encounter: 06/28/16 Palliative-CN HPI - Data of Consult Requesting Physician: Vaughn Fu Primary Care Provider: Manjit To Jr, MD - Consult Narrative History of present illness: Mr. Holland is a 71 year old male CC: Vaughn Fu Palliative Care-Exam - Constitutional Vitals: Temp Pulse Resp BP Pulse Ox 98.5 F 106 20 151/72 97 06/28/16 16:01 06/28/16 16:01 06/28/16 16:01 06/28/16 16:01 06/28/16 16:01 Internal Medicine - CN: Reslt - Labs CBC & Chem 7: 06/28/16 05:46 06/28/16 05:46 Labs: Short CBC 06/28/16 Range/Units 05:46 WBC 19.7 H (4.3-11.1) K/mcL Hgb 14.0 (12.9-16.9) g/dL Hct 46.6 (37.5-50.1) % Plt Count 239 (140-400) K/mcL Neutrophils # 13.4 H (1.6-8.9) K/mcL BMP 06/28/16 05:46 Sodium 142 Potassium 4.6 H Chloride 100 Carbon Dioxide 31 H BUN 28 H Creatinine 1.02 Glucose 109 H Calcium 9.1 - ABG Interpretation ABG results: ABG ABG pH 7.37 pH Units (7.32-7.45) 06/24/16 00:45 ABG pCO2 57 mmHg (35-45) H 06/24/16 00:45 ABG pO2 61 mmHg (85-104) L 06/24/16 00:45 ABG O2 Saturation 90 % (95-98) L 06/24/16 00:45 - Impressions Impressions Chest X-Ray 06/28/16 12:04 IMPRESSION: Chronic COPD. Improved atelectatic and/or consolidative changes right lower lobe. No evidence of pleural disease. D/ / 06/28/2016 15:40:19 Mariely Harper MD / lenny Interpreting Provider: Mariely Harper MD - Attending Attestation I examined this patient and my medical decision-making was reviewed with the TELEGRAPHIC TYPEWRITER INSTALLER/PA/Advanced Practice Nurse/Resident Physician. I agree with the documented findings, disposition and treatment plan as described except to the extent set forth below.
[2016-06-28] MEDS: GuaiFENesin/Codeine Oral Soln 5 ML UDC PO PRN ×2 (16:33→23:49)
[2016-06-28] MEDS: Levofloxacin 750 MG/150 ML 750 MG/150 ML BAG IVPB SCH (23:51)
[2016-06-29] MEDS: Ipratropium/Albuterol Neb 3 ML IH SCH ×4 (03:44→22:29)
[2016-06-29] MEDS: *HR* Heparin 5,000 UNIT/ML VIAL SQ SCH ×2 (06:26→20:47)
[2016-06-29 06:33] LABS: Hematocrit 46.5 % (37.5-50.1); Hemoglobin 14.1 g/dL (12.9-16.9); Mean Corpuscular HGB Conc 30.3 g/dL (31.6-35.5); Mean Corpuscular Hemoglobin 30.5 pg (28.0-33.3); Mean Corpuscular Volume 100.4 fL (83.0-100.0); Mean Platelet Volume 9.2 fL (9.4-12.4); Platelet Count 229 K/mcL (140-400); Red Blood Count 4.63 M/mcL (4.19-5.50); Red Cell Distribution Width 12.9 % (11.5-14.5)
[2016-06-29 06:48] LABS: BUN/Creatinine Ratio 39 (6-26); Blood Urea Nitrogen 32 mg/dL (8-26); Calcium 9.2 mg/dL (8.6-10.8); Carbon Dioxide 34 mEq/L (19-29); Chloride 97 mEq/L (98-109); Glucose 146 mg/dL (70-99); Osmolality,Calculated 302 (280-300); Potassium 5.2 mEq/L (3.5-4.5); Sodium 141 mEq/L (136-145); eGFR For African Americans > 60 (> 60); eGFR For Non-African Americans > 60 (> 60)
[2016-06-29 07:34] LABS: Lymphocytes # 4.6 K/mcL (0.6-4.6); Neutrophils # 16.3 K/mcL (1.6-8.9); Platelet Estimate Normal (Normal); Reactive Lymphocytes Present (Not Present)
[2016-06-29] MEDS: Metoprolol XL (24 HR) Succ 50 MG TAB.ER.24H PO SCH (08:48)
[2016-06-29] MEDS: Aspirin Enteric Coated 81 MG Tablet PO SCH (08:49)
[2016-06-29] MEDS: MethylPREDNISolone 40 MG/ML VIAL IVP SCH ×2 (08:49→16:06)
[2016-06-29] MEDS: Gabapentin 300 MG CAPSULE PO SCH ×3 (08:49→20:43)
[2016-06-29] MEDS: Multivit/Ca/Min/Fe/FA 1 TAB TABLET PO SCH (08:49)
[2016-06-29] MEDS: Folic Acid 1 MG TABLET PO SCH (08:49)
[2016-06-29] MEDS: Lactulose Oral Soln 20 GM/30 ML UDC PO SCH ×2 (08:49→20:45)
--- NOTE | 2016-06-29 10:19 | Palliative Progress Note ---
<Kevin Salmeron - Last Filed: 06/29/16 13:07> Date of Encounter: 06/29/16 Time of Encounter: 10:13 - Assessment and plan (1) Goals of care, counseling/discussion Current Visit: Yes Status: Acute Assessment and plan: Patient today requesting further discussion about hospice. Will have meeting today at 2pm with family, social work, and hospice nurse to discuss hospice. Pt. still looking to go back home upon discharge. Social work working on getting high flow O2 for home. (2) COPD exacerbation Current Visit: No Status: Acute Assessment and plan: Oxygenation improving abx, steroids, breathing tx. care per primary team - Time Spent With Patient Total time spent is greater than 50% in coordination of care (as documented) at patient's floor/unit and/or counseling patient: - Subjective Interval history: Patient seen and examined. Sitting up in bed, conversational. Oxygen saturations 94% on 7L high flow O2. Minimally decreased work of breathing since yesterday. States he continues to have regular BM's. Denies any pain/ nausea/constipation/diarrhea. - Constitutional Vitals: Abnormal lab results WBC 20.9 K/mcL (4.3-11.1) H 06/29/16 06:12 MCV 100.4 fL (83.0-100.0) H 06/29/16 06:12 MCHC 30.3 g/dL (31.6-35.5) L 06/29/16 06:12 MPV 9.2 fL (9.4-12.4) L 06/29/16 06:12 Neutrophils # 16.3 K/mcL (1.6-8.9) H 06/29/16 06:12 Hypersegmented Neuts Present (Not Present) A 06/28/16 05:46 Reactive Lymphocytes Present (Not Present) A 06/29/16 06:12 ABG pCO2 57 mmHg (35-45) H 06/24/16 00:45 ABG pO2 61 mmHg (85-104) L 06/24/16 00:45 ABG HCO3 33.0 mEQ/L (21-27) H 06/24/16 00:45 ABG Total CO2 34.7 mEq/L (20-26) H 06/24/16 00:45 ABG O2 Saturation 90 % (95-98) L 06/24/16 00:45 ABG Base Excess 5.9 mEq/L (-2.0 to 3.0) H 06/24/16 00:45 Potassium 5.2 mEq/L (3.5-4.5) H 06/29/16 06:12 Chloride 97 mEq/L (98-109) L 06/29/16 06:12 Carbon Dioxide 34 mEq/L (19-29) H 06/29/16 06:12 BUN 32 mg/dL (8-26) H 06/29/16 06:12 BUN/Creatinine Ratio 39 (6-26) H 06/29/16 06:12 Glucose 146 mg/dL (70-99) H 06/29/16 06:12 Calculated Osmolality 302 (280-300) H 06/29/16 06:12 General appearance: Present: cooperative, mild distress - Respiratory Respiratory exam: Present: decreased breath sounds, prolonged expiratory phase, wheezes. Absent: CTAB - Cardiovascular Cardiovascular exam: Present: RRR - GI/Abdominal GI/Abdominal exam: Absent: distended, firm - Neurological Exam Neurological exam: Present: alert, oriented X3 Palliative Quality Palliative Quality: Screen for Code Status: Yes (DNR-CCA-DNI), Screen for Goals of Care: Yes, Screen for Pain: Yes, If Pain Regimen Started, Initiate Bowel Regimen: NA, Screen for Nausea/Vomitting: Yes - Labs CBC & Chem 7: 06/29/16 06:12 06/29/16 06:12 Labs: Laboratory Results - last 24 hr 06/29/16 06/29/16 06:12 06:12 WBC 20.9 H RBC 4.63 Hgb 14.1 Hct 46.5 MCV 100.4 H MCH 30.5 MCHC 30.3 L RDW 12.9 Plt Count 229 MPV 9.2 L Seg Neutrophils % 78.0 Lymphocytes % 22.0 Neutrophils # 16.3 H Lymphocytes # 4.6 Reactive Lymphocytes Present A Platelet Estimate Normal Sodium 141 Potassium 5.2 H Chloride 97 L Carbon Dioxide 34 H BUN 32 H Creatinine 0.83 Est GFR ( Amer) > 60 Est GFR (Non-Af Amer) > 60 BUN/Creatinine Ratio 39 H Glucose 146 H Calculated Osmolality 302 H Calcium 9.2 - Impressions Impressions Chest X-Ray 06/28/16 12:04 IMPRESSION: Chronic COPD. Improved atelectatic and/or consolidative changes right lower lobe. No evidence of pleural disease. D/ / 06/28/2016 15:40:19 Mariely Harper MD / lenny Interpreting Provider: Mariely Harper MD - ABG Interpretation ABG results: ABG ABG pH 7.37 pH Units (7.32-7.45) 06/24/16 00:45 ABG pCO2 57 mmHg (35-45) H 06/24/16 00:45 ABG pO2 61 mmHg (85-104) L 06/24/16 00:45 ABG O2 Saturation 90 % (95-98) L 06/24/16 00:45 Consult Discharge Plan - Plan Instructions: Chronic Obstructive Pulmonary Disease (DC), Pneumonia (DC) Referrals: Manjit To Jr, MD [Primary Care Provider] - 06/30/16 10:00 am <Ignacio Maciel - Last Filed: 06/29/16 13:51> Date of Encounter: 06/29/16 - Time Spent With Patient Total time spent is greater than 50% in coordination of care (as documented) at patient's floor/unit and/or counseling patient: - Constitutional Vitals: Abnormal lab results WBC 20.9 K/mcL (4.3-11.1) H 06/29/16 06:12 MCV 100.4 fL (83.0-100.0) H 06/29/16 06:12 MCHC 30.3 g/dL (31.6-35.5) L 06/29/16 06:12 MPV 9.2 fL (9.4-12.4) L 06/29/16 06:12 Neutrophils # 16.3 K/mcL (1.6-8.9) H 06/29/16 06:12 Hypersegmented Neuts Present (Not Present) A 06/28/16 05:46 Reactive Lymphocytes Present (Not Present) A 06/29/16 06:12 ABG pCO2 57 mmHg (35-45) H 06/24/16 00:45 ABG pO2 61 mmHg (85-104) L 06/24/16 00:45 ABG HCO3 33.0 mEQ/L (21-27) H 06/24/16 00:45 ABG Total CO2 34.7 mEq/L (20-26) H 06/24/16 00:45 ABG O2 Saturation 90 % (95-98) L 06/24/16 00:45 ABG Base Excess 5.9 mEq/L (-2.0 to 3.0) H 06/24/16 00:45 Potassium 5.2 mEq/L (3.5-4.5) H 06/29/16 06:12 Chloride 97 mEq/L (98-109) L 06/29/16 06:12 Carbon Dioxide 34 mEq/L (19-29) H 06/29/16 06:12 BUN 32 mg/dL (8-26) H 06/29/16 06:12 BUN/Creatinine Ratio 39 (6-26) H 06/29/16 06:12 Glucose 146 mg/dL (70-99) H 06/29/16 06:12 Calculated Osmolality 302 (280-300) H 06/29/16 06:12 - Attending Attestation I examined this patient and my medical decision-making was reviewed with the SPECIALTY COOK/PA/Advanced Practice Nurse/Resident Physician. I agree with the documented findings, disposition and treatment plan as described except to the extent set forth below. - Labs CBC & Chem 7: 06/29/16 06:12 06/29/16 06:12 Labs: Laboratory Results - last 24 hr 06/29/16 06/29/16 06:12 06:12 WBC 20.9 H RBC 4.63 Hgb 14.1 Hct 46.5 MCV 100.4 H MCH 30.5 MCHC 30.3 L RDW 12.9 Plt Count 229 MPV 9.2 L Seg Neutrophils % 78.0 Lymphocytes % 22.0 Neutrophils # 16.3 H Lymphocytes # 4.6 Reactive Lymphocytes Present A Platelet Estimate Normal Sodium 141 Potassium 5.2 H Chloride 97 L Carbon Dioxide 34 H BUN 32 H Creatinine 0.83 Est GFR ( Amer) > 60 Est GFR (Non-Af Amer) > 60 BUN/Creatinine Ratio 39 H Glucose 146 H Calculated Osmolality 302 H Calcium 9.2 - Impressions Impressions Chest X-Ray 06/28/16 12:04
[2016-06-29] MEDS: Beclomethasone 80mcg MDI IH SCH ×2 (11:22→22:29)
--- NOTE | 2016-06-29 12:44 | Internal Med Progress Note ---
<Stan Mejia - Last Filed: 06/29/16 16:32> Date of Encounter: 06/29/16 Time of Encounter: 12:44 - Assessment and plan (1) Acute on chronic respiratory failure with hypoxia and hypercapnia Current Visit: Yes Status: Acute Assessment and plan: Likely 2/2 AE of COPD, added back IV steroid and it is helping, chest x-ray showed improvement, palliative has been consulted for goal of care, pt decided to go for hospice care, likely to be d/c on after all hospice equipment is ready at home. (2) COPD exacerbation Current Visit: No Status: Acute Assessment and plan: Chronic bronchitis, sputum production on/off, leukocytosis worsened, could be from steroid use, clinically slightly better. (3) Leukocytosis Current Visit: Yes Status: Acute Assessment and plan: Worsened, due to infection vs steroid, x-ray showed improvement, bld culture negative x2, recheck in AM. Qualifiers: Qualified Code(s): D72.829 - Elevated white blood cell count, unspecified (4) DVT prophylaxis Current Visit: Yes Status: Acute Assessment and plan: Heparin SQ BID. - Subjective Interval history: Pt seen and examined, breathing is little improved, 4L of oxygen and satting 92% , no chest pain. - Constitutional Vitals: Temp Pulse Resp BP Pulse Ox 98.2 F 91 20 152/73 91 L 06/29/16 10:51 06/29/16 10:51 06/29/16 11:22 06/29/16 10:51 06/29/16 11:22 General appearance: Present: cooperative, mild distress, A&O X 3, obese, answers questions appropriately - Head Head exam: Present: atraumatic, normocephalic - Eye Eye exam: Present: PERRL, conjuntiva pink, sclera anicteric Pupils: Present: PERRL - Neck Neck exam general surgery: Present: supple, trachea midline. Absent: lymphadenopathy - Respiratory Respiratory exam: Present: decreased breath sounds (diffusely b/l). Absent: accessory muscle use, rales, rhonchi, wheezes - Cardiovascular Cardiovascular exam: Present: RRR, +S1, +S2. Absent: diastolic murmur, gallop, rubs, systolic murmur - GI/Abdominal GI/Abdominal exam: Present: normal bowel sounds, soft, no peritoneal signs. Absent: distended, tenderness - Extremities Exam Extremities exam: Present: warm, radial pulses palpable and symetrical. Absent : calf tenderness, cyanotic, pedal edema - Neurological Exam Neurological exam: Present: CN II-XII intact, oriented X3, no focal deficits. Absent: pronater drift, facial droop, speech deficit - Skin Skin exam: Present: dry, intact Internal Medicine: Result - Labs CBC & Chem 7: 06/29/16 06:12 06/29/16 06:12 Labs: Short CBC 06/29/16 Range/Units 06:12 WBC 20.9 H (4.3-11.1) K/mcL Hgb 14.1 (12.9-16.9) g/dL Hct 46.5 (37.5-50.1) % Plt Count 229 (140-400) K/mcL Neutrophils # 16.3 H (1.6-8.9) K/mcL BMP 06/29/16 06:12 Sodium 141 Potassium 5.2 H Chloride 97 L Carbon Dioxide 34 H BUN 32 H Creatinine 0.83 Glucose 146 H Calcium 9.2 - ABG Interpretation ABG results: ABG ABG pH 7.37 pH Units (7.32-7.45) 06/24/16 00:45 ABG pCO2 57 mmHg (35-45) H 06/24/16 00:45 ABG pO2 61 mmHg (85-104) L 06/24/16 00:45 ABG O2 Saturation 90 % (95-98) L 06/24/16 00:45 - Impressions Impressions Chest X-Ray 06/28/16 12:04 IMPRESSION: Chronic COPD. Improved atelectatic and/or consolidative changes right lower lobe. No evidence of pleural disease. D/ / 06/28/2016 15:40:19 Mariely Harper MD / lenny Interpreting Provider: Mariely Harper MD - VTE Documentation of Mechanical Device: Graduated compression elastic hosiery Consult Discharge Plan - Plan Instructions: Chronic Obstructive Pulmonary Disease (DC), Pneumonia (DC) Referrals: Manjit To Jr, MD [Primary Care Provider] - 06/30/16 10:00 am <Vaughn Fu - Last Filed: 06/29/16 17:13> Date of Encounter: 06/29/16 - Assessment and plan (1) Acute and chronic respiratory failure with hypoxia Current Visit: Yes Status: Acute (2) DVT prophylaxis Current Visit: Yes Status: Acute (3) COPD exacerbation Current Visit: No Status: Acute - Constitutional Vitals: Temp Pulse Resp BP Pulse Ox 97.9 F 92 18 164/80 93 L 06/29/16 15:14 06/29/16 15:14 06/29/16 15:14 06/29/16 15:14 06/29/16 15:14 Internal Medicine: Result - Labs CBC & Chem 7: 06/29/16 06:12 06/29/16 06:12 Labs: Short CBC 06/29/16 Range/Units 06:12 WBC 20.9 H (4.3-11.1) K/mcL Hgb 14.1 (12.9-16.9) g/dL Hct 46.5 (37.5-50.1) % Plt Count 229 (140-400) K/mcL Neutrophils # 16.3 H (1.6-8.9) K/mcL BMP 06/29/16 06:12 Sodium 141 Potassium 5.2 H Chloride 97 L Carbon Dioxide 34 H BUN 32 H Creatinine 0.83 Glucose 146 H Calcium 9.2 - ABG Interpretation ABG results: ABG ABG pH 7.37 pH Units (7.32-7.45) 06/24/16 00:45 ABG pCO2 57 mmHg (35-45) H 06/24/16 00:45 ABG pO2 61 mmHg (85-104) L 06/24/16 00:45 ABG O2 Saturation 90 % (95-98) L 06/24/16 00:45 - Attending Attestation The patient was seen and examined during rounds. I agree with the physical examination findings, assessment and plan as documented by the resident Dr. Stan Mejia. Briefly, the patient with severe COPD and chronic respiratory failure is currently getting treatment for his COPD exacerbation with antibiotics, systemic steroids and aerosol therapy. A consultation with our palliative care team has been requested. We will follow recommendations. The patient may benefit from high flow oxygen supplementation on a long-term basis.
[2016-06-30] MEDS: MethylPREDNISolone 40 MG/ML VIAL IVP SCH ×2 (01:53→08:55)
[2016-06-30] MEDS: Ipratropium/Albuterol Neb 3 ML IH SCH ×4 (04:43→23:19)
[2016-06-30 04:47] LABS: Hemoglobin 13.7 g/dL (12.9-16.9); Red Cell Distribution Width 12.9 % (11.5-14.5)
[2016-06-30 04:48] LABS: Hematocrit 45.4 % (37.5-50.1); Mean Corpuscular HGB Conc 30.2 g/dL (31.6-35.5); Mean Corpuscular Hemoglobin 30.4 pg (28.0-33.3); Mean Corpuscular Volume 100.7 fL (83.0-100.0); Mean Platelet Volume 9.1 fL (9.4-12.4); Platelet Count 218 K/mcL (140-400); Red Blood Count 4.51 M/mcL (4.19-5.50)
[2016-06-30 04:55] LABS: BUN/Creatinine Ratio 39 (6-26); Blood Urea Nitrogen 37 mg/dL (8-26); Calcium 9.3 mg/dL (8.6-10.8); Carbon Dioxide 38 mEq/L (19-29); Chloride 96 mEq/L (98-109); Glucose 146 mg/dL (70-99); Osmolality,Calculated 299 (280-300); Potassium 5.1 mEq/L (3.5-4.5); Sodium 139 mEq/L (136-145); eGFR For African Americans > 60 (> 60); eGFR For Non-African Americans > 60 (> 60)
[2016-06-30 05:29] LABS: Lymphocytes # 0.5 K/mcL (0.6-4.6); Monocytes # 1.1 K/mcL (0.0-1.3); Neutrophils # 24.3 K/mcL (1.6-8.9); Platelet Estimate Normal (Normal)
[2016-06-30] MEDS: *HR* Heparin 5,000 UNIT/ML VIAL SQ SCH ×2 (07:36→18:33)
[2016-06-30] MEDS: Metoprolol XL (24 HR) Succ 50 MG TAB.ER.24H PO SCH (08:53)
[2016-06-30] MEDS: Aspirin Enteric Coated 81 MG Tablet PO SCH (08:54)
[2016-06-30] MEDS: Folic Acid 1 MG TABLET PO SCH (08:55)
[2016-06-30] MEDS: Multivit/Ca/Min/Fe/FA 1 TAB TABLET PO SCH (08:55)
[2016-06-30] MEDS: Gabapentin 300 MG CAPSULE PO SCH ×3 (08:55→21:20)
[2016-06-30] MEDS: Lactulose Oral Soln 20 GM/30 ML UDC PO SCH ×2 (08:55→22:58)
--- NOTE | 2016-06-30 09:45 | Palliative Progress Note ---
Date of Encounter: 06/30/16 Time of Encounter: 07:40 - Assessment and plan (1) Acute and chronic respiratory failure with hypoxia Current Visit: Yes Status: Acute Assessment and plan: Slow improvement, patient will be discharged tomorrow with hospice. Patient meets hospice criteria based on her hypoxemia on high flow oxygen and inability to get around without it. Has noted worsening conditions least the past month. (2) Acute kidney injury Current Visit: Yes Status: Acute Assessment and plan: Normal GFR at this time continue to watch (3) Goals of care, counseling/discussion Current Visit: Yes Status: Acute Assessment and plan: The patient has opted for DNR CCA, DNI. Transition this to comfort care tomorrow with the patient goes home with hospice. (4) Pneumonia Current Visit: Yes Status: Acute Assessment and plan: Blood cultures are negative thus far, x-ray shows clearing per the hospitalist note. Cytosis may be secondary to steroids. When per hospitalist team. Qualifiers: Pneumonia type: due to unspecified organism Laterality: bilateral Lung location: lower lobe of lung Qualified Code(s): J18.9 - Pneumonia, unspecified organism (5) Constipation by delayed colonic transit Current Visit: No Status: Acute Assessment and plan: The patient is having active bowel movements no changes are anticipated today. - Time Spent With Patient Total time spent is greater than 50% in coordination of care (as documented) at patient's floor/unit and/or counseling patient: - Subjective Interval history: Mr. Saravia reports breathing about the same. Looking forward to going home tomorrow. No other complaints of at this time. - Constitutional Vitals: Abnormal lab results WBC 27.0 K/mcL (4.3-11.1) H 06/30/16 04:14 MCV 100.7 fL (83.0-100.0) H 06/30/16 04:14 MCHC 30.2 g/dL (31.6-35.5) L 06/30/16 04:14 MPV 9.1 fL (9.4-12.4) L 06/30/16 04:14 Metamyelocytes % 1.0 % (0) H 06/30/16 04:14 Myelocytes % 3.0 % (0) H 06/30/16 04:14 Neutrophils # 24.3 K/mcL (1.6-8.9) H 06/30/16 04:14 Lymphocytes # 0.5 K/mcL (0.6-4.6) L 06/30/16 04:14 Hypersegmented Neuts Present (Not Present) A 06/28/16 05:46 Reactive Lymphocytes Present (Not Present) A 06/29/16 06:12 ABG pCO2 57 mmHg (35-45) H 06/24/16 00:45 ABG pO2 61 mmHg (85-104) L 06/24/16 00:45 ABG HCO3 33.0 mEQ/L (21-27) H 06/24/16 00:45 ABG Total CO2 34.7 mEq/L (20-26) H 06/24/16 00:45 ABG O2 Saturation 90 % (95-98) L 06/24/16 00:45 ABG Base Excess 5.9 mEq/L (-2.0 to 3.0) H 06/24/16 00:45 Potassium 5.1 mEq/L (3.5-4.5) H 06/30/16 04:14 Chloride 96 mEq/L (98-109) L 06/30/16 04:14 Carbon Dioxide 38 mEq/L (19-29) H 06/30/16 04:14 BUN 37 mg/dL (8-26) H 06/30/16 04:14 BUN/Creatinine Ratio 39 (6-26) H 06/30/16 04:14 Glucose 146 mg/dL (70-99) H 06/30/16 04:14 General appearance: Present: no acute distress - Head Head exam: Present: atraumatic, normal inspection - Eye Eye exam: Present: normal appearance - ENT ENT exam: Present: mucous membranes moist - Respiratory Respiratory exam: Present: decreased breath sounds (Still requiring high flow O2 ) - Cardiovascular Cardiovascular exam: Present: RRR - GI/Abdominal GI/Abdominal exam: Present: normal bowel sounds, soft. Absent: tenderness - Extremities Exam Extremities exam: Present: normal inspection. Absent: pedal edema, tenderness - Neurological Exam Neurological exam: Present: alert, oriented X3 - Psychiatric Psychiatric exam: Present: normal affect, normal mood. Absent: agitated, anxious - Skin Skin exam: Present: dry, warm Palliative Quality Palliative Quality: Screen for Code Status: Yes (DNR-CCA-DNI), Screen for Goals of Care: Yes, Screen for Pain: Yes, If Pain Regimen Started, Initiate Bowel Regimen: NA, Screen for Nausea/Vomitting: Yes - Labs CBC & Chem 7: 06/30/16 04:14 06/30/16 04:14 Labs: Laboratory Results - last 24 hr 06/30/16 06/30/16 04:14 04:14 WBC 27.0 H RBC 4.51 Hgb 13.7 Hct 45.4 MCV 100.7 H MCH 30.4 MCHC 30.2 L RDW 12.9 Plt Count 218 MPV 9.1 L Seg Neutrophils % 87.0 Band Neutrophils % 3.0 Lymphocytes % 2.0 Monocytes % 4.0 Metamyelocytes % 1.0 H Myelocytes % 3.0 H Neutrophils # 24.3 H Lymphocytes # 0.5 L Monocytes # 1.1 Platelet Estimate Normal Sodium 139 Potassium 5.1 H Chloride 96 L Carbon Dioxide 38 H BUN 37 H Creatinine 0.95 Est GFR ( Amer) > 60 Est GFR (Non-Af Amer) > 60 BUN/Creatinine Ratio 39 H Glucose 146 H Calculated Osmolality 299 Calcium 9.3 - ABG Interpretation ABG results: ABG ABG pH 7.37 pH Units (7.32-7.45) 06/24/16 00:45 ABG pCO2 57 mmHg (35-45) H 06/24/16 00:45 ABG pO2 61 mmHg (85-104) L 06/24/16 00:45 ABG O2 Saturation 90 % (95-98) L 06/24/16 00:45 Consult Discharge Plan - Plan Instructions: Chronic Obstructive Pulmonary Disease (DC), Pneumonia (DC) Referrals: Manjit To Jr, MD [Primary Care Provider] - 06/30/16 10:00 am
--- NOTE | 2016-06-30 09:50 | Event Note ---
Date of Encounter: 06/30/16 Time of Encounter: 09:49 Hospice emergency medical technician basic certification of terminal illness: Hospice benefit. Start: 07/01/2016 Hospice benefit. In: +90 days Palliative performance scale: 30 percent History: The patient has a history of severe COPD. Ring high flow oxygen to maintain a low 90s oxygen saturation. She can become breathless just talking. Get around without supplemental oxygen. Supplemental oxygen demand has gone up. She does not wish to have any further aggressive care. And therefore I find These findings support a life expectancy of 6 months or less. I attest that I have compose the above narrative based on my review of the patient's medical records, and or on my examination of the patient. Ignacio Maciel M.D. Associate biomedical engineering technologist. [facility]
[2016-06-30] MEDS: Beclomethasone 80mcg MDI IH SCH ×2 (11:11→23:20)
--- NOTE | 2016-06-30 11:22 | Internal Med Progress Note ---
<Stan Mejia - Last Filed: 06/30/16 14:29> Date of Encounter: 06/30/16 Time of Encounter: 11:22 - Assessment and plan (1) Acute on chronic respiratory failure with hypoxia and hypercapnia Current Visit: Yes Status: Acute Assessment and plan: Likely 2/2 AE of COPD, switch IV to PO steroid, chest x-ray showed improvement, palliative has been consulted for goal of care, pt decided to go for hospice care, d/c plan is tomorrow after all hospice equipments are ready to be at home. (2) COPD exacerbation Current Visit: No Status: Acute Assessment and plan: Chronic bronchitis, sputum production on/off, leukocytosis worsened, could be from steroid use, clinically slightly better. (3) Leukocytosis Current Visit: Yes Status: Acute Assessment and plan: Worsened, due to infection vs steroid, x-ray showed improvement, bld culture negative x2, productive cough resolved. Qualifiers: Qualified Code(s): D72.829 - Elevated white blood cell count, unspecified (4) DVT prophylaxis Current Visit: Yes Status: Acute Assessment and plan: Heparin SQ BID. - Subjective Interval history: Pt seen and examined, breathing is no change from yesterday, still on high flow 7L and satting 92%. - Constitutional Vitals: Temp Pulse Resp BP Pulse Ox 97.3 F L 84 18 145/73 98 06/30/16 11:17 06/30/16 11:17 06/30/16 11:17 06/30/16 11:17 06/30/16 11:17 General appearance: Present: cooperative, A&O X 3, obese, answers questions appropriately - Head Head exam: Present: atraumatic, normocephalic - Eye Eye exam: Present: PERRL, conjuntiva pink, sclera anicteric Pupils: Present: PERRL - Neck Neck exam general surgery: Present: supple, trachea midline. Absent: lymphadenopathy - Respiratory Respiratory exam: Present: decreased breath sounds (very diminished diffusely). Absent: accessory muscle use, CTAB, rales, rhonchi, wheezes - Cardiovascular Cardiovascular exam: Present: RRR, +S1, +S2. Absent: diastolic murmur, gallop, rubs, systolic murmur - GI/Abdominal GI/Abdominal exam: Present: normal bowel sounds, soft, no peritoneal signs. Absent: distended, tenderness - Extremities Exam Extremities exam: Present: warm, radial pulses palpable and symetrical. Absent : calf tenderness, cyanotic, pedal edema - Neurological Exam Neurological exam: Present: CN II-XII intact, oriented X3, no focal deficits. Absent: pronater drift, facial droop, speech deficit - Skin Skin exam: Present: dry, intact Internal Medicine: Result - Labs CBC & Chem 7: 06/30/16 04:14 06/30/16 04:14 Labs: Short CBC 06/30/16 Range/Units 04:14 WBC 27.0 H (4.3-11.1) K/mcL Hgb 13.7 (12.9-16.9) g/dL Hct 45.4 (37.5-50.1) % Plt Count 218 (140-400) K/mcL Neutrophils # 24.3 H (1.6-8.9) K/mcL BMP 06/30/16 04:14 Sodium 139 Potassium 5.1 H Chloride 96 L Carbon Dioxide 38 H BUN 37 H Creatinine 0.95 Glucose 146 H Calcium 9.3 - ABG Interpretation ABG results: ABG ABG pH 7.37 pH Units (7.32-7.45) 06/24/16 00:45 ABG pCO2 57 mmHg (35-45) H 06/24/16 00:45 ABG pO2 61 mmHg (85-104) L 06/24/16 00:45 ABG O2 Saturation 90 % (95-98) L 06/24/16 00:45 - VTE Documentation of Mechanical Device: Graduated compression elastic hosiery Consult Discharge Plan - Plan Instructions: Chronic Obstructive Pulmonary Disease (DC), Pneumonia (DC) Referrals: Manjit To Jr, MD [Primary Care Provider] - 07/05/16 9:45 am (Please follow up as schedule...) Prescriptions: LORazepam Oral Conc [Ativan Oral Conc] 1 mg PO Q4H PRN #30 mls PRN Reason: Anxiety Morphine Oral CONC [Roxanol] 5 mg PO Q2H PRN #30 ml PRN Reason: pain or sob Sennosides/Docusate Sodium [Senna Plus] 1 each PO BID #15 tablet <Vaughn Fu - Last Filed: 06/30/16 16:21> Date of Encounter: 06/30/16 - Assessment and plan (1) Acute and chronic respiratory failure with hypoxia Current Visit: Yes Status: Acute (2) DVT prophylaxis Current Visit: Yes Status: Acute (3) COPD exacerbation Current Visit: No Status: Acute - Constitutional Vitals: Temp Pulse Resp BP Pulse Ox 98.5 F 90 18 145/80 95 06/30/16 15:30 06/30/16 15:30 06/30/16 15:30 06/30/16 15:30 06/30/16 15:30 Internal Medicine: Result - Labs CBC & Chem 7: 06/30/16 04:14 06/30/16 04:14 Labs: Short CBC 06/30/16 Range/Units 04:14 WBC 27.0 H (4.3-11.1) K/mcL Hgb 13.7 (12.9-16.9) g/dL Hct 45.4 (37.5-50.1) % Plt Count 218 (140-400) K/mcL Neutrophils # 24.3 H (1.6-8.9) K/mcL BMP 06/30/16 04:14 Sodium 139 Potassium 5.1 H Chloride 96 L Carbon Dioxide 38 H BUN 37 H Creatinine 0.95 Glucose 146 H Calcium 9.3 - ABG Interpretation ABG results: ABG ABG pH 7.37 pH Units (7.32-7.45) 06/24/16 00:45 ABG pCO2 57 mmHg (35-45) H 06/24/16 00:45 ABG pO2 61 mmHg (85-104) L 06/24/16 00:45 ABG O2 Saturation 90 % (95-98) L 06/24/16 00:45 - Attending Attestation The patient was seen and examined during rounds. I agree with the physical examination findings, assessment and plan as documented by the resident Dr. Stan Mejia. Briefly, the patient with severe COPD and chronic respiratory failure is currently getting treatment for his COPD exacerbation with antibiotics, systemic steroids and aerosol therapy. palliative care team has evaluated the case, patient is currently DNR comfort care and will be discharged home tomorrow. D/W patient.
[2016-06-30] MEDS ORDERED: Morphine Oral CONC 5 MG/0.25 ML ORAL.SYG PO PRN (13:18)
[2016-06-30] MEDS: Albuterol 2.5 MG/3 ML NEBULIZER IH PRN (19:36)
[2016-07-01] MEDS: Ipratropium/Albuterol Neb 3 ML IH SCH ×3 (04:52→12:23)
[2016-07-01 07:11] VITALS: BP 129/74
--- NOTE | 2016-07-01 07:58 | Palliative Progress Note ---
<Kevin Salmeron - Last Filed: 07/01/16 10:58> Date of Encounter: 07/01/16 Time of Encounter: 07:55 - Assessment and plan (1) Goals of care, counseling/discussion Current Visit: Yes Status: Acute Assessment and plan: Patient has decided to enter hospice upon discharge today. All his prescriptions have been written and sent in. High flow O2 will be available for home use. CODE STATUS: DNR-CC (2) COPD exacerbation Current Visit: No Status: Acute Assessment and plan: Continued difficulty in breathing Requires continuous high flow O2 Worsening leukocytosis. Possibly 2/2 steroids. Pt. will be discharged home today. - Time Spent With Patient Total time spent is greater than 50% in coordination of care (as documented) at patient's floor/unit and/or counseling patient: - Subjective Interval history: Patient seen and examined. Sitting up in bed, friendly, conversational. To be discharged today on hospice. Oxygen saturations 93% on 7L high flow O2. States he continues to have regular BM's. Denies any pain/nausea/constipation/ diarrhea. - Constitutional Vitals: Abnormal lab results WBC 27.0 K/mcL (4.3-11.1) H 06/30/16 04:14 MCV 100.7 fL (83.0-100.0) H 06/30/16 04:14 MCHC 30.2 g/dL (31.6-35.5) L 06/30/16 04:14 MPV 9.1 fL (9.4-12.4) L 06/30/16 04:14 Metamyelocytes % 1.0 % (0) H 06/30/16 04:14 Myelocytes % 3.0 % (0) H 06/30/16 04:14 Neutrophils # 24.3 K/mcL (1.6-8.9) H 06/30/16 04:14 Lymphocytes # 0.5 K/mcL (0.6-4.6) L 06/30/16 04:14 Hypersegmented Neuts Present (Not Present) A 06/28/16 05:46 Reactive Lymphocytes Present (Not Present) A 06/29/16 06:12 ABG pCO2 57 mmHg (35-45) H 06/24/16 00:45 ABG pO2 61 mmHg (85-104) L 06/24/16 00:45 ABG HCO3 33.0 mEQ/L (21-27) H 06/24/16 00:45 ABG Total CO2 34.7 mEq/L (20-26) H 06/24/16 00:45 ABG O2 Saturation 90 % (95-98) L 06/24/16 00:45 ABG Base Excess 5.9 mEq/L (-2.0 to 3.0) H 06/24/16 00:45 Potassium 5.1 mEq/L (3.5-4.5) H 06/30/16 04:14 Chloride 96 mEq/L (98-109) L 06/30/16 04:14 Carbon Dioxide 38 mEq/L (19-29) H 06/30/16 04:14 BUN 37 mg/dL (8-26) H 06/30/16 04:14 BUN/Creatinine Ratio 39 (6-26) H 06/30/16 04:14 Glucose 146 mg/dL (70-99) H 06/30/16 04:14 General appearance: Present: no acute distress, obese - Respiratory Respiratory exam: Present: decreased breath sounds, wheezes - Cardiovascular Cardiovascular exam: Present: RRR - GI/Abdominal GI/Abdominal exam: Present: normal bowel sounds - Extremities Exam Extremities exam: Absent: pedal edema - Neurological Exam Neurological exam: Present: alert, oriented X3 - Psychiatric Psychiatric exam: Present: normal affect, normal mood Palliative Quality Palliative Quality: Screen for Code Status: Yes (DNR-CCA-DNI), Screen for Goals of Care: Yes, Screen for Pain: Yes, If Pain Regimen Started, Initiate Bowel Regimen: NA, Screen for Nausea/Vomitting: Yes Code Status: 06/23/16 22:27 Resuscitation Status: Active [RES] Routine Comment: Resuscitation Status: DNR-Comfort Care - Labs CBC & Chem 7: 06/30/16 04:14 06/30/16 04:14 - ABG Interpretation ABG results: ABG ABG pH 7.37 pH Units (7.32-7.45) 06/24/16 00:45 ABG pCO2 57 mmHg (35-45) H 06/24/16 00:45 ABG pO2 61 mmHg (85-104) L 06/24/16 00:45 ABG O2 Saturation 90 % (95-98) L 06/24/16 00:45 Consult Discharge Plan - Plan Instructions: Lorazepam (By mouth), Prednisone (By mouth), Morphine, Rapid Release (By mouth), Levofloxacin (By mouth), Laxative, Stimulant Combination ( By mouth), Chronic Obstructive Pulmonary Disease (DC), Pneumonia (DC) Referrals: Manjit To Jr, MD [Primary Care Provider] - 07/05/16 9:45 am (Please follow up as schedule for hospital d/c f/u.) Prescriptions: LORazepam Oral Conc [Ativan Oral Conc] 1 mg PO Q4H PRN #30 mls PRN Reason: Anxiety Levofloxacin [Levaquin] 500 mg PO DAILY 5 Days Morphine Oral CONC [Roxanol] 5 mg PO Q2H PRN #30 ml PRN Reason: pain or sob PredniSONE 10 mg PO DAILY #30 tablet Sennosides/Docusate Sodium [Senna Plus] 1 each PO BID #15 tablet <Ignacio Maciel - Last Filed: 07/01/16 13:07> Date of Encounter: 07/01/16 - Assessment and plan (1) Acute and chronic respiratory failure with hypoxia Current Visit: Yes Status: Acute (2) Acute kidney injury Current Visit: Yes Status: Acute (3) Goals of care, counseling/discussion Current Visit: Yes Status: Acute (4) Pneumonia Current Visit: Yes Status: Acute Qualifiers: Pneumonia type: due to unspecified organism Laterality: bilateral Lung location: lower lobe of lung Qualified Code(s): J18.9 - Pneumonia, unspecified organism (5) Constipation by delayed colonic transit Current Visit: No Status: Acute - Time Spent With Patient Total time spent is greater than 50% in coordination of care (as documented) at patient's floor/unit and/or counseling patient: - Constitutional Vitals: Abnormal lab results WBC 27.0 K/mcL (4.3-11.1) H 06/30/16 04:14 MCV 100.7 fL (83.0-100.0) H 06/30/16 04:14 MCHC 30.2 g/dL (31.6-35.5) L 06/30/16 04:14 MPV 9.1 fL (9.4-12.4) L 06/30/16 04:14 Metamyelocytes % 1.0 % (0) H 06/30/16 04:14 Myelocytes % 3.0 % (0) H 06/30/16 04:14 Neutrophils # 24.3 K/mcL (1.6-8.9) H 06/30/16 04:14 Lymphocytes # 0.5 K/mcL (0.6-4.6) L 06/30/16 04:14 Hypersegmented Neuts Present (Not Present) A 06/28/16 05:46 Reactive Lymphocytes Present (Not Present) A 06/29/16 06:12 ABG pCO2 57 mmHg (35-45) H 06/24/16 00:45 ABG pO2 61 mmHg (85-104) L 06/24/16 00:45 ABG HCO3 33.0 mEQ/L (21-27) H 06/24/16 00:45 ABG Total CO2 34.7 mEq/L (20-26) H 06/24/16 00:45 ABG O2 Saturation 90 % (95-98) L 06/24/16 00:45 ABG Base Excess 5.9 mEq/L (-2.0 to 3.0) H 06/24/16 00:45 Potassium 5.1 mEq/L (3.5-4.5) H 06/30/16 04:14 Chloride 96 mEq/L (98-109) L 06/30/16 04:14 Carbon Dioxide 38 mEq/L (19-29) H 06/30/16 04:14 BUN 37 mg/dL (8-26) H 06/30/16 04:14 BUN/Creatinine Ratio 39 (6-26) H 06/30/16 04:14 Glucose 146 mg/dL (70-99) H 06/30/16 04:14 - Attending Attestation I examined this patient and my medical decision-making was reviewed with the SHOE REPAIRER HELPER/PA/Advanced Practice Nurse/Resident Physician. I agree with the documented findings, disposition and treatment plan as described except to the extent set forth below. Palliative Quality Code Status: 06/23/16 22:27 Resuscitation Status: Active [RES] Routine Comment: Resuscitation Status: DNR-Comfort Care - Labs CBC & Chem 7: 06/30/16 04:14 06/30/16 04:14 - ABG Interpretation ABG results: ABG ABG pH 7.37 pH Units (7.32-7.45) 06/24/16 00:45 ABG pCO2 57 mmHg (35-45) H 06/24/16 00:45 ABG pO2 61 mmHg (85-104) L 06/24/16 00:45 ABG O2 Saturation 90 % (95-98) L 06/24/16 00:45
[2016-07-01] MEDS: Aspirin Enteric Coated 81 MG Tablet PO SCH (08:45)
[2016-07-01] MEDS: Gabapentin 300 MG CAPSULE PO SCH (08:46)
[2016-07-01] MEDS: Folic Acid 1 MG TABLET PO SCH (08:46)
[2016-07-01] MEDS: Metoprolol XL (24 HR) Succ 50 MG TAB.ER.24H PO SCH (08:46)
[2016-07-01] MEDS: Multivit/Ca/Min/Fe/FA 1 TAB TABLET PO SCH (08:46)
[2016-07-01] MEDS: Lactulose Oral Soln 20 GM/30 ML UDC PO SCH (08:47)
[2016-07-01] MEDS ORDERED: predniSONE 20 MG TABLET PO SCH (09:00)
[2016-07-01] MEDS ORDERED: levoFLOXacin 500 MG TABLET PO SCH (09:00)
--- NOTE | 2016-07-01 09:11 | Discharge Summary ---
<Stan Mejia - Last Filed: 07/01/16 13:07> Date of Encounter: 07/01/16 Time of Encounter: 09:05 - Discharge Diagnosis (1) Acute on chronic respiratory failure with hypoxia and hypercapnia Priority: Primary Status: Acute (2) COPD exacerbation Priority: Secondary Status: Acute (3) Leukocytosis Priority: Secondary Status: Acute (4) DVT prophylaxis Priority: Secondary Status: Acute - Discharge Medications Prescriptions: LORazepam Oral Conc [Ativan Oral Conc] 1 mg PO Q4H PRN #30 mls PRN Reason: Anxiety Levofloxacin [Levaquin] 500 mg PO DAILY 5 Days Morphine Oral CONC [Roxanol] 5 mg PO Q2H PRN #30 ml PRN Reason: pain or sob PredniSONE 10 mg PO DAILY #30 tablet Sennosides/Docusate Sodium [Senna Plus] 1 each PO BID #15 tablet Home Medications: Aspirin [Lo-Dose Aspirin EC] 162 mg PO DAILY 05/29/16 [History] Folic Acid 0.8 mg PO DAILY 05/29/16 [History] Multivitamin [Multi-Day Vitamins] 1 tab PO DAILY 05/29/16 [History] Gabapentin [Neurontin] 300 mg PO TID #90 capsule 06/02/16 [Rx] GuaiFENesin ER [Mucinex] 600 mg PO BID #60 tbbp.12hr 06/02/16 [Rx] Albuterol Neb [Proventil Neb] 2.5 mg IH Q4H PRN #30 inhsol 06/09/16 [Rx] Alprazolam [Xanax 0.5 MG Tablet] 0.5 mg PO Q6HR PRN #12 tablet 06/09/16 [Rx] Beclomethasone Diprop 40mcg [QVAR 40 mcg] 1 puff IH BID 30 Days 06/09/16 [Rx] Ibuprofen [Motrin] 800 mg PO TID PRN #0 06/09/16 [Rx] Metoprolol XL (24 HR) Succ [Toprol Xl] 50 mg PO DAILY #30 tab.er.24h 06/09/16 [ Rx] Simvastatin [Zocor] 40 mg PO DAILY #30 tablet 06/09/16 [Rx] Tiotropium [Spiriva] 18 mcg IH DAILYR 30 Days 06/09/16 [Rx] LORazepam Oral Conc [Ativan Oral Conc] 1 mg PO Q4H PRN #30 mls 06/30/16 [Rx] Morphine Oral CONC [Roxanol] 5 mg PO Q2H PRN #30 ml 06/30/16 [Rx] Sennosides/Docusate Sodium [Senna Plus] 1 each PO BID #15 tablet 06/30/16 [Rx] Levofloxacin [Levaquin] 500 mg PO DAILY 5 Days 07/01/16 [Rx] PredniSONE 10 mg PO DAILY #30 tablet 07/01/16 [Rx] Allergies/Adverse Reactions: Allergies No Known Allergies Allergy (Verified 06/23/16 18:35) Date of admission: 06/23/16 22:27 Primary care physician: Manjit To Jr, MD Consults: 06/24/16 09:01 Consult to Information Technology Administrator [CONS] Routine Reason for SW Consult: services upon discharge 06/28/16 13:49 Consult to Palliative Care [CONS] Routine Comment: very severe COPD, goal of care Consulting Provider: [facility] [place] Discharging clinician: Stan Mejia Anticipated date of discharge: 07/01/16 - Patient Status Disposition: Hospice - Home Condition: Fair Functional capacity at discharge: uses cane/walker (fall precaution, up with assistance) Overall status at discharge: patient is not back to baseline - Discharge Instructions Instructions: Lorazepam (By mouth), Prednisone (By mouth), Morphine, Rapid Release (By mouth), Levofloxacin (By mouth), Laxative, Stimulant Combination ( By mouth), Chronic Obstructive Pulmonary Disease (DC), Pneumonia (DC) Follow Up With: Manjit To Jr, MD [Primary Care Provider] - 07/05/16 9:45 am (Please follow up as schedule for hospital d/c f/u.) - Diet and Activity Activity: resume usual activities as tolerated, wear oxygen at all times Diet: regular diet Hospital course: Mr. Holland is a 71 year old male with hx of severe COPD, came to the ER with cc of SOB and productive cough, admitted for COPD exacerbation, during hospital stay he received IV steroid, duoneb ATC, IV abx for possible pneumonia, Qvar and oxygen support. During hospital stay, he consistently required high flow oxygen at 7 L, usually he is on 2 to 4 L at home but in hospital he was satting around 90 to 92% with high flow 7L, palliative was involved and after long discussion, pt's code status changed to DNR CC and due to severe COPD, he chose to have hospice care at home. Therefore he will be d/c to home today with steroid taper and po levaquin, close f/u with his PCP. - Time Spent with Patient Total time spent providing and/or coordinating discharge services: - Constitutional Vitals: Temp Pulse Resp BP Pulse Ox 97.7 F 79 18 129/74 92 L 07/01/16 07:10 07/01/16 07:10 07/01/16 07:10 07/01/16 07:10 07/01/16 07:10 General appearance: Present: cooperative, A&O X 3, obese, answers questions appropriately - Head Head exam: Present: atraumatic, normocephalic - Eye Eye exam: Present: PERRL, conjuntiva pink, sclera anicteric Pupils: Present: PERRL - Neck Neck exam general surgery: Present: supple, trachea midline. Absent: lymphadenopathy - Respiratory Respiratory exam: Present: decreased breath sounds (very diminished b/l). Absent: accessory muscle use, rales, rhonchi, wheezes - Cardiovascular Cardiovascular exam: Present: RRR, +S1, +S2. Absent: diastolic murmur, gallop, rubs, systolic murmur - GI/Abdominal GI/Abdominal exam: Present: normal bowel sounds, soft, no peritoneal signs. Absent: distended, tenderness - Extremities Exam Extremities exam: Present: warm, radial pulses palpable and symetrical. Absent : calf tenderness, cyanotic, pedal edema - Neurological Exam Neurological exam: Present: CN II-XII intact, oriented X3, no focal deficits. Absent: pronater drift, facial droop, speech deficit - Skin Skin exam: Present: dry, intact - VTE Documentation of Mechanical Device: Graduated compression elastic hosiery <Vaughn Fu - Last Filed: 07/01/16 15:56> Date of Encounter: 07/01/16 - Discharge Diagnosis (1) Acute and chronic respiratory failure with hypoxia Status: Acute (2) DVT prophylaxis Status: Acute (3) COPD exacerbation Status: Acute Date of admission: 06/23/16 22:27 Primary care physician: Manjit To Jr, MD Consults: 06/24/16 09:01 Consult to Information Technology Administrator [CONS] Routine Reason for SW Consult: services upon discharge 06/28/16 13:49 Consult to Palliative Care [CONS] Routine Comment: very severe COPD, goal of care Consulting Provider: Palliative Care [facility] course: Mr. Holland is a 71 year old male - Time Spent with Patient Total time spent providing and/or coordinating discharge services: - Constitutional Vitals: Temp Pulse Resp BP Pulse Ox 97.7 F 79 16 129/74 97 07/01/16 07:10 07/01/16 07:10 07/01/16 12:24 07/01/16 07:10 07/01/16 12:24 - Attending Attestation I examined this patient and my medical decision-making was reviewed with the ENTRY LEVEL RECEPTIONIST/PA/Advanced Practice Nurse/Resident Physician. I agree with the documented findings, disposition and treatment plan as described except to the extent set forth below. Patient seen and examined on rounds, I agree with the physical examination findings, assessment and plan as documented by the resident Dr. Stan Mejia. Briefly, patient with severe COPD will be discharged home, will receive a course of by mouth steroids, po levaquin, we will continue with management according to recommendations by our palliative care team. Patient's CODE STATUS is DNR comfort care. The plan of care was discussed with the patient in detail.
[2016-07-01] MEDS: *HR* Heparin 5,000 UNIT/ML VIAL SQ SCH (09:17)
[2016-07-01] MEDS: Beclomethasone 80mcg MDI IH SCH (11:20)
== END 2016-07-01 13:20 | disposition hospice, home (50) | DRG 189 ==
LOC: 3BNU 18:34 → EMEROO 18:34 → 3BNU 22:24 → SUATTDRO 22:27 → 2ANU 06-26 10:30
PROVIDERS: ADMIT Family Medicine; ATTEND Internal Medicine

== ENCOUNTER 2016-07-13 12:31 | Inpatient (IN) ==
[2016-07-13] MEDS ORDERED: Haloperidol Oral Conc 10 MG/5 ML UDC PO PRN (13:34)
[2016-07-13] MEDS ORDERED: Albuterol 2.5 MG/3 ML NEBULIZER IH PRN (13:34)
[2016-07-13] MEDS ORDERED: Bisacodyl 10 MG RECTAL SUPPOSITORY RC PRN (13:34)
[2016-07-13] MEDS ORDERED: *HR* LORazepam Oral Conc 2 MG/ML PO PRN (13:34)
[2016-07-13] MEDS ORDERED: Ipratropium/Albuterol Neb 3 ML IH PRN (13:34)
--- NOTE | 2016-07-13 13:55 | Pallative History & Physical ---
Date of Encounter: 07/13/16 Time of Encounter: 13:53 Assessment and Plan (1) Acute and chronic respiratory failure with hypoxia Current visit: No Status: Acute She may very well be having trouble with hypoxemia as well as hypercapnia at this time. We will make more liberal use of the BiPAP, I will not be drawing any blood work. (2) Constipation by delayed colonic transit Current visit: No Status: Acute The patient is on a bowel regimen will continue to watch. (3) Dyspnea Current visit: No Status: Acute The patient is currently noticeably short of breath. Patient was medicated with Roxanol, patient will be maintained on his oxygen will make more liberal use of his BiPAP and inhalers. As needed for dyspnea. Qualifiers: Dyspnea type: shortness of breath Qualified Code(s): R06.02 - Shortness of breath (4) Goals of care, counseling/discussion Current visit: No Status: Acute ER comfort care, patient is being admitted for treatment of acute delirium which may very well be terminal delirium. Making more liberal use of the BiPAP as this may be hypercapnia Selena continuing oxygen therapy along with ablation therapy and adding an Ativan and Roxanol as needed. 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 We will make more use of his BiPAP. Being maintained on his high flow oxygen make liberal use of Ativan and morphine as needed. Abdomen is soft and supple I do not a full colon or a full bladder at this time but will continue to monitor. She is on general inpatient hospice care for treatment of acute delirium maintained on general inpatient until this clears with the patient passes. Internal Medicine - H&P: HPI Admitted From: Direct Admit Plans for Post Hospital Care: Hospice - Home History of present illness: Mr. Holland is a 71 year old male With a history of severe COPD. Patient is now in hospice and has been having increasing problems with restlessness at night and being sedated during the day. Merle has not been able to get any rest of the patient's symptoms have gotten worse therefore the patient's being brought in or general inpatient medical relief of shortness of breath and agitation particularly at night. She is currently using 7 L/m of oxygen and using CPAP at night as well. Today he is visibly short of breath. Not able to give a good history. Denies any pain at this time. Past Med Surg Social Fam HX - Past Medical History Medical history: COPD, coronary artery disease, hyperlipidemia, hypertension, myocardial infarction Psychiatric history: no psych history - Past Surgical History Surgical History: non-contributory, other - Social History Smoking Status: Former smoker Smokeless Tobacco Status: No Alcohol use: none Drug use: none - Family History Mother Living Status: Father Living Status: Hx Family Respiratory Disorders: Yes Internal Medicine - H&P: Meds Aspirin [Lo-Dose Aspirin EC] 162 mg PO DAILY 05/29/16 [History] Folic Acid 0.8 mg PO DAILY 05/29/16 [History] Multivitamin [Multi-Day Vitamins] 1 tab PO DAILY 05/29/16 [History] Gabapentin [Neurontin] 300 mg PO TID #90 capsule 06/02/16 [Rx] GuaiFENesin ER [Mucinex] 600 mg PO BID #60 tbbp.12hr 06/02/16 [Rx] Albuterol Neb [Proventil Neb] 2.5 mg IH Q4H PRN #30 inhsol 06/09/16 [Rx] Alprazolam [Xanax 0.5 MG Tablet] 0.5 mg PO Q6HR PRN #12 tablet 06/09/16 [Rx] Beclomethasone Diprop 40mcg [QVAR 40 mcg] 1 puff IH BID 30 Days 06/09/16 [Rx] Ibuprofen [Motrin] 800 mg PO TID PRN #0 06/09/16 [Rx] Metoprolol XL (24 HR) Succ [Toprol Xl] 50 mg PO DAILY #30 tab.er.24h 06/09/16 [ Rx] Simvastatin [Zocor] 40 mg PO DAILY #30 tablet 06/09/16 [Rx] Tiotropium [Spiriva] 18 mcg IH DAILYR 30 Days 06/09/16 [Rx] LORazepam Oral Conc [Ativan Oral Conc] 1 mg PO Q4H PRN #30 mls 06/30/16 [Rx] Morphine Oral CONC [Roxanol] 5 mg PO Q2H PRN #30 ml 06/30/16 [Rx] Sennosides/Docusate Sodium [Senna Plus] 1 each PO BID #15 tablet 06/30/16 [Rx] Levofloxacin [Levaquin] 500 mg PO DAILY 5 Days 07/01/16 [Rx] PredniSONE 10 mg PO DAILY #30 tablet 07/01/16 [Rx] Allergies No Known Allergies Allergy (Verified 06/23/16 18:35) ROS unobtainable: due to mental status Palliative Care-Exam - Constitutional General appearance: Present: mild distress (Due to shortness of breath) - Head Head Exam: Present: atraumatic, normal inspection - Eye Eye exam: Present: normal appearance - ENT ENT exam: Present: mucous membranes dry, normal oropharynx - Neck Neck exam: Present: normal inspection - Respiratory Respiratory exam: Present: decreased breath sounds (Decreased air entry), prolonged expiratory phase (With wheezes on expiration), wheezes - Cardiovascular Cardiovascular exam: Present: RRR - GI/Abdominal Exam GI/Abdominal exam: Present: distended, normal bowel sounds, soft. Absent: tenderness - Extremities Exam Extremities exam: Present: normal inspection. Absent: pedal edema, tenderness - Neurological Exam Neurological exam: Present: altered (Answers questions haltingly) - Psychiatric Psychiatric exam: Absent: agitated, anxious - Skin Skin exam: Present: dry, warm Palliative Quality Palliative Quality: Screen for Code Status: Yes, Screen for Goals of Care: Yes, Screen for Pain: Yes, If Pain Regimen Started, Initiate Bowel Regimen: Yes, Screen for Nausea/Vomitting: Yes Code Status: 07/13/16 13:34 Resuscitation Status: Active [RES] Stat Resuscitation Status: DNR-Comfort Care Comment:
[2016-07-13] MEDS: Morphine Oral CONC 5 MG/0.25 ML ORAL.SYG PO PRN ×2 (14:00→15:47)
[2016-07-13] MEDS: Gabapentin 300 MG CAPSULE PO SCH ×2 (16:04→23:37)
[2016-07-13] MEDS: *HR* Morphine Sulfate SR (12 HR) 15 MG TABLET.ER PO SCH (18:51)
[2016-07-13] MEDS ORDERED: *HR* LORazepam Oral Conc 2 MG/ML PO SCH (21:00)
[2016-07-13] MEDS ORDERED: Sennosides/Docusate Sodium TABLET PO SCH (21:00)
[2016-07-13] MEDS: Beclomethasone 40mcg MDI IH SCH (22:07)
[2016-07-14] MEDS: *HR* Morphine Sulfate SR (12 HR) 15 MG TABLET.ER PO SCH (05:38)
[2016-07-14] MEDS ORDERED: Tiotropium 18 MCG inhalation IH SCH (07:00)
[2016-07-14] MEDS ORDERED: Metoprolol XL (24 HR) Succ 50 MG TAB.ER.24H PO SCH (09:00)
[2016-07-14] MEDS ORDERED: predniSONE 10 MG TABLET PO SCH (09:00)
[2016-07-14] MEDS: Beclomethasone 40mcg MDI IH SCH (11:00)
--- NOTE | 2016-07-14 13:34 | Death Note ---
Discharge Sum: Summary - Date and Time Date of admission: 07/13/16 13:22 Date of : 07/14/16 Time of : 11:40 - Summary Details: The patient was brought in for symptomatic care of terminal agitation. I believe this terminal agitation was due to hypoxemia as well as hypercapnia. Rafy and was visibly short of breath on admission is given medication to help with his breathing specifically Roxanol on this, things down he was placed on BiPAP already did well throughout the day yesterday throughout the night and this morning. This morning his air entry was quite poor on physical exam and it was clear that he was breathing above the BiPAP but not effectively. He passed quietly and comfortably at 1140 this morning with family at bedside. Lines of was respiratory failure. This is secondary to long-standing COPD. Morbidities include coronary artery disease and hypertension. Patient was prior smoker. - Additional Data Confirmation of as documented by pronouncing clinician: no pulse, no respirations, no heart sounds Family: at bedside Attending/PCP notified?: Yes Attending physician: Ignacio Maciel MD Was code activated?: No Autopsy requested?: No health claims examiner notified?: No Organ bank notified?: Yes Advance directives: Yes Hospice patient?: Yes Discharge Sum: Diag - PCOD Probable Cause of : Respiratory arrest Discharge Sum: Prov - Provider Primary care physician: Manjit To Jr, MD Consults: 07/13/16 13:34 Consult to Palliative Care [CONS] Routine Comment: Consulting Provider: [facility] [place]
== END 2016-07-14 11:40 | disposition expired | DRG 189 ==
LOC: 2ANU 13:22
PROVIDERS: ADMIT Family Medicine Hospice and Palliative Medicine; ATTEND Family Medicine Hospice and Palliative Medicine